=== PATIENT | female | born 1940 | race Caucasian/White ===

== ENCOUNTER 2020-01-26 12:27 | Emergency (ER) | payer MEDICARE, SELFPAY ==
[2020-01-26 12:31] VITALS: BP 180/84; PULSE 71; RESP 18; TEMP 37.2; O2SAT 96
[2020-01-26 12:41] LABS: Bilirubin Negative (Negative); Blood Negative (Negative); Clarity Clear (Clear); Glucose Negative (Negative); Ketones Negative (Negative); Leukocyte Esterase Negative (Negative); Nitrite Negative (Negative); Urobilinogen 0.2 EU/dL (Up TO 0.2)
[2020-01-26 12:46] VITALS: BP 175/82; PULSE 69
--- NOTE | 2020-01-26 12:48 | NUR.NOTE ---
Nursing Note: [facility] - PCP: Dr. De Paz. , . [facility] - Urologist: Dr. Jose Griffin. Lupe Delgado.
--- NOTE | 2020-01-26 12:50 | ED.GENADUL_ITS ---
Discharge Plan Disposition Patient Disposition: HOME Condition: Stable Discharge Details Chief Complaint: FlankPain Clinical Impression: Right flank pain, chronic Primary Care Provider: Oumar De Paz ED Provider: Amirah Blanco Home Meds and New Rx's Prescriptions: Continued allopurinol 100 mg Tablet 200 mg PO DAILY RF: 0 metoprolol tartrate 25 mg Tablet 25 mg PO BID RF: 0 amlodipine 5 mg Tablet 5 mg PO DAILY RF: 0 fluticasone propionate 50 mcg/actuation [place],Suspension 1 spray INTRANASAL BID RF: 0 furosemide 20 mg Tablet 20 mg PO DAILY RF: 0 latanoprost 0.005 % Drops 1 drp ophthalmic (eye) HS RF: 0 triamcinolone acetonide 0.1 % Cream 1 applic TOPICAL BID RF: 0 Lactobacillus acidophilus [Acidophilus] Capsule 1 cap PO DAILY RF: 0 loratadine 10 mg Tablet 10 mg PO BID RF: 0 multivitamin Tablet 1 tab PO DAILY RF: 0 docusate sodium 100 mg Tablet 100 mg PO BID PRNRF: 0 Aspercreme with Aloe 10 % Cream 1 applic TOPICAL PRN PRNRF: 0 hydrocortisone valerate 0.2 % Ointment 1 applic TOPICAL DAILY PRNRF: 0 Discharge Instructions Instructions: Flank Pain (ED) Additional Instructions: Follow up with primary care provider in 3-5 days. Return to ED sooner if any worsening or concerns. Increase oral fluids. Please return to the ED if any fever, nausea vomiting pain not relieved by medications or any concerns. Your labs today were largely within normal limits there is no evidence of urinary tract infection or blood in your urine. Referrals: Oumar De Paz [Primary Care Provider] - Discharge Data Discharge Date/Time-TO BE ENTERED AT DEPARTURE: 01/26/20 15:38 Medical Decision Making 79-year-old female presents with right flank pain which began last night. She describes this as intermittent colicky type pain. This is rated at a 2 out of 10 mild severity. This is associated with some mild right upper quadrant abdominal tenderness. She presents today after having a tele-visit with her PCP this a.m. Patient reports that for the last 25 years she is had a known right renal cyst. She denies any nausea vomiting diarrhea fever no chills or any other associated symptoms. She does have a history of atrial fibrillation congestive heart failure, glaucoma, gout, hypertension she did take 2 ibuprofen tablets this morning prior to arrival. At this time urinalysis ordered which is pending, renal ultrasound ordered to evaluate renal cyst. 1256: Medical records requested from [facility] PCP office Dr. De Paz to receive recent lab work drawn on Thursday, January 16 and recent ultrasounds and CT's. 1318: See below for medical record review. 1323: Upon patient reevaluation she appears very comfortable is resting quietly in bed reading a book has not requested any pain medication. 1336: Monitor to ensure correct comparison and continuity of care will draw CBC, CMP and lipase and ultrasound changed to CT abdomen pelvis with IV contrast to evaluate renal cyst and possible common bile duct cyst versus other intra- abdominal pathology. Differential diagnosis includes but not limited to exacerbation of chronic renal cyst, UTI, pyelonephritis,(which is unlikely due to negative leukocytes, negative nitrites in urine) common bile duct stone. This text was generated using [employer] dictation system, please disregard any oddities of phrase or misspellings. 1509: Spoke with Dr. Conway radiologist preliminary result CT nothing acute reports questionable very small less than a centimeter cysts of the upper pole of the right kidney. Patient has no evidence of UTI, labs are largely within normal limits plan is to discharge home with strict return instructions and follow-up with PCP. In this dictation patient was hemodynamically stable, this text was generated using [employer] system, please disregard any oddities of phrase or misspellings. Medical Records Medical records reviewed: Yes I reviewed the patient's medical records. Medical records narrative: 1318: Medical records obtained from [facility] which includes labs drawn on 01/17/2020 shows a BUN of 22 creatinine of 0.8 GFR greater than 60 sodium is 136 potassium is 4.4 chloride is 100 CO2 27 AST 28 ALT 29 CBC is largely within normal limits no leukocytosis hemoglobin 13.[address] thorax without IV contrast performed on February 03, 2019 shows a thyroid mass, exophytic mass 1.8 cm arising from the upper pole of the right kidney. This is slightly increased in size since May 13, 2013(1.5 cm)was previously b iopsied on 05/24/2013. HPI General Mode of arrival: ambulatory . Date/Time Provider Initiated Documentation: 01/26/20 12:30 . Limitations to Documentation: no limitations . Information obtained by: patient . HPI Narrative: 79-year-old female presents with right flank pain which began last night. She describes this as intermittent colicky type pain. This is rated at a 2 out of 10 mild severity. This is associated with some mild right upper quadrant abdominal tenderness. She presents today after having a tele-visit with her PCP this a.m. Patient reports that for the last 25 years she is had a known right renal cyst. She denies any nausea vomiting diarrhea fever no chills or any other associated symptoms. She does have a history of atrial fibrillation congestive heart failure, glaucoma, gout, hypertension, hyponatremia and thyroid mass which was ultrasound and being evaluated by her PCP. She did take 2 ibuprofen tablets this morning prior to arrival. Related Data Home Medications Medication Instructions Recorded Confirmed Aspercreme with Aloe 1 applic TOPICAL PRN PRN 01/26/20 01/26/20 Lactobacillus acidophilus 1 cap PO DAILY 01/26/20 01/26/20 [Acidophilus] allopurinol 200 mg PO DAILY 01/26/20 01/26/20 amlodipine 5 mg PO DAILY 01/26/20 01/26/20 docusate sodium 100 mg PO BID PRN 01/26/20 01/26/20 fluticasone propionate 1 spray INTRANASAL BID 01/26/20 01/26/20 furosemide 20 mg PO DAILY 01/26/20 01/26/20 hydrocortisone valerate 1 applic TOPICAL DAILY PRN 01/26/20 01/26/20 latanoprost 1 drp OPHTHALMIC (EYE) HS 01/26/20 01/26/20 loratadine 10 mg PO BID 01/26/20 01/26/20 metoprolol tartrate 25 mg PO BID 01/26/20 01/26/20 multivitamin 1 tab PO DAILY 01/26/20 01/26/20 triamcinolone acetonide 1 applic TOPICAL BID 01/26/20 01/26/20 Allergies Allergy/AdvReac Type Severity Reaction Status Date / Time adhesive tape Allergy Skin Rash Unverified 01/26/20 12:52 ciprofloxacin [From Cipro] Allergy Hives Unverified 01/26/20 12:52 levofloxacin [From Levaquin] Allergy Hives Unverified 01/26/20 12:52 moxifloxacin [From Vigamox] Allergy Hives Unverified 01/26/20 12:52 Penicillins Allergy large Unverified 01/26/20 12:52 bruise from injection as child Sulfa (Sulfonamide Allergy Hives Unverified 01/26/20 12:52 Antibiotics) General Stated Complaint: FlankPain CHRISSY: 3 Review of Systems Narrative: Constitutional: Negative for weight loss, alert and oriented, well groomed, normal body habitus, appears comfortable. HEENT: Denies trauma, headaches, blurry vision, nasal discharge, sore throat, trouble swallowing. Chest: Denies chest pain, palpitations, irregular rhythm, hypertension. Respiratory: Denies Shortness of breath, cough, hemoptysis. GI: Denies nausea, vomiting, diarrhea, constipation. Positive right upper quadrant abdominal pain : Denies dysuria, hematuria, positive right flank pain, history of right renal cyst, no rectal bleeding. Neuro: Denies dizziness, blurry vision, weakness, syncope, headache or facial numbness. Hematologic: Denies easy bruising, intolerance to heat or cold, hair loss. All systems reviewed & are unremarkable except as noted in HPI and below PFSH Medical History (Updated 01/26/20 @ 15:25 by Amirah Blanco) Alcohol abuse (Chronic) Allergic rhinitis (Acute) Atrial fibrillation (Chronic) Diastolic heart failure (Acute) Dizziness (Acute) Falls (Acute) Glaucoma (Chronic) Gout (Chronic) HTN (hypertension) (Chronic) Hyponatremia (Acute) Inguinal hernia (Acute) Low back pain (Acute) Osteoarthritis (Chronic) Osteoporosis (Chronic) Rosacea (Acute) Seborrheic keratosis (Acute) Sleep disturbance (Acute) Thyroid mass (Acute) Surgical History (Updated 01/26/20 @ 13:04 by Amirah Blanco) History of appendectomy (Chronic) History of colon surgery (Acute) Hx of cholecystectomy (Chronic) Social History Smoking/Tobacco Use Status: Former Tobacco Use Alcohol Intake: current Alcohol Intake frequency: 0-2 drinks per day Alcohol type: wine Drug use: Never Do you feel safe at home: Yes Do you feel safe in your relationship?: Yes Exam Narrative Exam Narrative: Constitutional: Alert and oriented x3. Appears stated age. Normal body habitus. Head: Normocephalic, no trauma. Eyes: Pupils PERRLA, Red reflex noted, EOM's intact. Eyelids symmetrical without lesions, discharge, or swelling. ENT: Bilateral TM's WNL, External ear normal to inspection, no mastoid TTP, swelling, or erythema, Nasal turbinates WNL, no nasal discharge. Normal dentition, Posterior pharynx WNL, no exudate. Chest: RRR, Normal S1, S2, distal pulses intact. Resp: Lungs clear to auscultation bilaterally, no wheezes, rales, or rhonchi. GI: Abdomen soft right upper quadrant tenderness to palpation, abdominal wall inspection normal nondistended. Genitourinary: No CVA tenderness to palpation. Musculoskeletal: Normal gait, 5/5 strength to all four extremities. Skin: No suspicious rashes or lesions. Capillary refill less than 2 sec. Neurologic: Cranial nerves II-XII intact. Alert and oriented x 3. DTR's intact. Hematologic/Lymphatic: No ecchymosis, no lymphadenopathy. Course Vital Signs Vital signs: Vital Signs Temperature 37.2 C 01/26/20 12:31 Pulse 71 01/26/20 12:31 Respiratory Rate 18 01/26/20 12:31 Blood Pressure 180/84 H 01/26/20 12:31 Pulse Oximetry 96 01/26/20 12:31 Temperature 37.2 C 01/26/20 12:31 Temperature Source Skin 01/26/20 12:31 Pulse 71 01/26/20 12:31 Respiratory Rate 18 01/26/20 12:31 Respiratory Effort Non-Labored 01/26/20 12:45 Blood Pressure 180/84 H 01/26/20 12:31 Pulse Oximetry 96 01/26/20 12:31 Oxygen Delivery Method Room Air 01/26/20 12:31 Oxygen Flow Rate 0 01/26/20 12:31 Pain Level 4 01/26/20 12:31 Comment 2 ibuprofen this morning 01/26/20 12:31 Lab/Test Results Lab/Test Results: Laboratory Tests Range/Units 01/26/20 12:30 Urine Color (Yellow) Yellow Urine Clarity (Clear) Clear Urine pH (5-8) 7.0 Ur Specific [place] (1.005-1.025) 1.020 Urine Protein (Negative) mg/dL Negative Urine Ketones (Negative) mg/dL Negative Urine Blood (Negative) Negative Urine Nitrite (Negative) Negative Urine Bilirubin (Negative) Negative Urine Urobilinogen (Up TO 0.2) EU/dL 0.2 Ur Leukocyte Esterase (Negative) Negative Urine Glucose (Negative) mg/dL Negative
[2020-01-26 13:49] LABS: Abs Immature Grans 0.02 k/cumm (0.0-0.09); Absolute Basophil Count 0.03 k/cumm (0.0-0.2); Absolute Eosinophil Count 0.27 k/cumm (0.0-0.7); Absolute Lymphocyte Count 1.34 k/cumm (1.2-3.4); Absolute Monocyte Count 0.59 k/cumm (0.11-0.7); Absolute Neutrophil Count 5.67 k/cumm (1.2-6.7); Basophils % 0.4; Eosinophils % 3.4; HCT 40.9 % (36.0-46.0); HGB 14.2 g/dL (12.0-15.5); Immature Grans % 0.3 %; Lymphocytes % 16.9; Mean Corp. HGB Concentration 34.7 g/dL (32.0-36.0); Mean Corpuscular Hemoglobin 33.6 pg (27.0-33.0); Mean Corpuscular Volume 96.7 fL (80-95); Mean Platelet Volume 9.4 fL (8.0-11.0); Monocytes % 7.4; Neutrophils % 71.6; Platelet Count 247 x1000/uL (130-400); RBC 4.23 m/cumm (4.00-5.20); White Blood Cell Count 7.92 k/cumm (4.4-10.8)
[2020-01-26 14:05] LABS: ALT 28 U/L (14-59); AST 24 U/L (15-37); Albumin 4.1 g/dL (3.4-5.0); Alkaline Phosphatase 104 U/L (46-116); Anion Gap 4.3 mmol/L (3-11); BUN 14 mg/dL (7-18); Bilirubin, Total 0.7 mg/dL (0.2-1.0); CO2 30.7 mmol/L (21.0-32.0); CREATININE 0.84 mg/dL (0.55-1.02); Calcium 9.7 mg/dL (8.5-10.1); Chloride 96 mmol/L (98-107); Glucose 104 mg/dL (74-106); Lipase 226 U/L (73-393); Potassium 3.5 mmol/L (3.5-5.1); Sodium 131 mmol/L (136-145); Total Protein 7.5 g/dL (6.4-8.2)
[2020-01-26] MEDS: Omnipaque 350 MG/ML 100 ML BTL IJ (14:30)
[2020-01-26] MEDS: Normal Saline - Diluent 50 ML VIAL IV (14:31)
--- NOTE | 2020-01-26 14:43 | DI.CT_ITS ---
EXAM: CT ABDOMEN PELVIS W CLINICAL HISTORY: RUQ ABD PAIN, HX OF BERTHA, HX OF RENAL CYST TECHNIQUE: CT examination of the abdomen and pelvis was performed with a bolus infusion of 100 cc of Omnipaque 350. COMPARISON: No exams were available for comparison FINDINGS: Images obtained through the lung bases are unremarkable. Note is made of a vertebral fusion and vert ebroplasty at L4-5 with [place] rods in place. There is a prior cholecystectomy. No biliary dilatation seen. Pancreas is unremarkable in appearanc e. No focal hepatic lesion seen. Spleen is unremarkable. There is a small hiatal hernia. Adrenals are unremarkable in appearance bilaterally. There are a couple of small low-attenuation cor tical renal lesions bilaterally consistent with cysts. A 90 Hounsfield unit mean attenuation 9 millim eter nodule also seen upper right, is likely to represent a hemorrhagic cyst. There is no evidence of nephrolithiasis or hydronephrosis. No evidence of ureterolithiasis. Urinary bladder grossly unrema rkable. Abdominal aorta is of normal diameter. There is aortic wall calcification, calcification of renal ar mohan origins noted bilaterally and significant renal artery stenosis may be present. Renal cortex gr ossly intact bilaterally. No abdominal or pelvic adenopathy seen. No evidence of bowel obstruction. Appendix appears to have been surgically removed with vascular clips at the expected location of the appendix. No evidence of diverticulitis. Uterus is enlarged and contains calcified mass consistent with degenerating fibroid. Additional nonc alcified uterine masses are also noted consistent with fibroid. Left ovarian calcification also appe ars to be present. No gross adnexal mass by CT criteria. Question prior ventral hernia surgery, thickening of anterior abdominal wall noted in the periumbilic al region. No bowel involvement, no gross hernia. Please correlate with clinical history. IMPRESSION: No evidence of acute intraabdominal process. Heavily calcified renal artery origins, renal artery stenosis not excluded. Probable prior abdominal wall ventral herniorrhaphy, please correlate clinically. No associated juliana l pathology. No gross hernia.
[2020-01-26 15:07] VITALS: BP 153/71; PULSE 81; RESP 16; TEMP 36.6; O2SAT 96
--- NOTE | 2020-01-26 15:39 | PDOC.ERCMPRO ---
- If Service Date Differs Date of service: 01/26/20 Time of Service: 15:39 Care Management Progress Note ARMANDO meets with Bertha to offer assistance in establishing care with the [facility]. She reports she lives in [place], [place], but spends [place] at a camp in the [facility] every year. She is seen in the ED today for right flank pain and needs a follow-up appointment in 3 to 5 days. Bertha states she started the process of establishing care with the [facility] last summer and she believes she will be able to schedule a follow-up appointment on her own. Bertha declines 's offer of assistance, but accepts contact information and agrees to call if needed.
== END 2020-01-26 15:38 | disposition home or self-care (01) ==
PROVIDERS: Emergency Provider Registered Nurse Emergency; PCP Family Medicine
DX: M54.5 Low back pain (principal); G89.29 Other chronic pain; R10.11 Right upper quadrant pain; I10 Essential (primary) hypertension
CPT/HCPCS: 36415; 80053; 83690; 99285; 74177; 81003; 85025; 99284; J3490

== ENCOUNTER 2021-04-22 10:23 | Emergency (ER) | payer MEDICARE, SELFPAY ==
[2021-04-22] VITALS (25 sets, daily range): BP systolic 127–173; BP diastolic 53–124; PULSE 60–79; RESP 14–24; TEMP 36.3–36.8; O2SAT 95–100
[2021-04-22 11:16] LABS: Bilirubin Negative (Negative); Blood Trace-intact (Negative); Clarity Clear (Clear); Glucose Negative (Negative); Ketones Negative (Negative); Leukocyte Esterase Trace (Negative); Nitrite Negative (Negative)
[2021-04-22 11:27] LABS: Bacteria Negative HPF (Negative); Casts 3-5 Hyaline LPF (Negative); Crystals Negative HPF (Negative); Epithelial Cells Few HPF (Negative); Mucus Negative (Negative); Other Cells Few Transitional (Negative)
[2021-04-22 11:28] LABS: C & S Indicated? Yes
--- NOTE | 2021-04-22 12:15 | RT.EKG_ITS ---
APPROVED REPORT Exam: Resting ECG Reason for Exam: abd pain Patient Location: E HR:71 bpm ECG Measurements Heart Rate 71 AXIS WY [id number] P [id number] QRSd 88 QRS 2 QT 395 T 31 QTc 431 Conclusion Atrial fibrillation...V-rate 66- 82, irreg A-activity Borderline ST depression, anterolateral leads...ST <-0.07mV, I aVL V2-V6 no STEMI, non-diagnostic EKG I have reviewed and interpreted ECG and agree with software generated interpretation.
--- NOTE | 2021-04-22 12:15 | DI.CT_ITS ---
Exam(s) CT ABDOMEN PELVIS W EXAM: CT ABDOMEN PELVIS W CLINICAL HISTORY: luq pain and flank pain TECHNIQUE: Imaging Protocol: Axial computed tomography images with coronal and sagittal reformatted images were created and reviewed CONTRAST MATERIAL: Intravenous: Omnipaque 350 Contrast volume:100 mL Oral: No COMPARISON: CT CT ABDOMEN PELVIS W from 01/26/2020 FINDINGS: ABDOMEN: Lung Bases: Mild centrilobular pulmonary emphysema. Cardiomegaly. Liver: Normal density. No measurable mass. Portal, Superior Mesenteric, and Splenic Veins: Unremarkable. Gallbladder and Biliary Tract: Status post cholecystectomy. No biliary ductal dilatation. Pancreas: Normal density, no abnormal calcifications or inflammatory process. Spleen: Normal. Adrenals: No masses seen. Kidneys: Normal size, contour and axis. No radiodense stones or obstructive uropathy. Stable bilatera l renal cysts. Abdominal Aorta: Abdominal portion non-dilated. Marked atherosclerosis. Bowel: No obstruction or bowel wall thickening. No evidence of appendicitis. Peritoneal Cavity: No ascites, collection or mesenteric inflammatory response. No free air. Lymph Nodes: Within normal limits. Bones: Status post lumbar spine surgery. No acute abnormality. Soft Tissues: Unremarkable. PELVIS: Bladder: Symmetric distention, no gross wall thickening. Reproductive Organs: Calcified uterine masses most consistent with uterine fibroids. Lymph Nodes: Within normal limits. Bones: Within normal limits for the patient's age. IMPRESSION: 1. No acute abdominal pelvic process. 2. Results of this exam have been verbally communicated with provider. RADIATION DOSE DELIVERED: 846.39mGy.cm Total DLP DATA REPOSITORY: All CT scans at this facility are submitted to the National Radiology Data Registry (NRDR) Dose Index Registry (DIR) with the [employer] (ACR). RADIATION OPTIMIZATION: All CT scans at this facility use at least one of these dose optimization te chniques: automated exposure control; mA and/or kV adjustment per patient size (includes targeted exa ms where dose is matched to clinical indication); or iterative reconstruction.
--- NOTE | 2021-04-22 12:18 | W.ED.GENAD ---
Discharge Plan Disposition Patient Disposition: HOME Condition: Stable Discharge Details Clinical Impression: Abdominal pain Primary Care Provider: Oumar De Paz ED Provider: Yohana Tran Home Meds and New Rx's Prescriptions: Continued allopurinol 100 mg Tablet 200 mg PO DAILY RF: 0 metoprolol tartrate 25 mg Tablet 75 mg PO BID RF: 0 amlodipine 5 mg Tablet 5 mg PO DAILY RF: 0 fluticasone propionate 50 mcg/actuation [place],Suspension 1 spray INTRANASAL BID RF: 0 furosemide 20 mg Tablet 20 mg PO DAILY RF: 0 latanoprost 0.005 % Drops 1 drp ophthalmic (eye) HS RF: 0 triamcinolone acetonide 0.1 % Cream 1 applic TOPICAL BID RF: 0 Lactobacillus acidophilus [Acidophilus] Capsule 1 cap PO DAILY RF: 0 multivitamin Tablet 1 tab PO DAILY RF: 0 docusate sodium 100 mg Tablet 100 mg PO BID PRNRF: 0 Aspercreme with Aloe 10 % Cream 1 applic TOPICAL PRN PRNRF: 0 hydrocortisone valerate 0.2 % Ointment 1 applic TOPICAL DAILY PRNRF: 0 Discharge Instructions Instructions: Abdominal Pain (ED) Additional Instructions: Does not show abnormality at this time Take Tylenol 650 every 4-6 hours as needed for pain Follow-up with your doctor in 24 to 48 hours for reevaluation Return earlier should you have persistent or worsening pain, fever, chills, nausea, vomiting, or with any new or worsening complaints Discharge Data Discharge Date/Time-TO BE ENTERED AT DEPARTURE: 04/22/21 16:[address] radiology interpretation shows atherosclerosis but no other acute abnormality Afebrile and nontoxic, potassium 3.4, will supplement at home No evidence of additional abnormality Pain-free throughout encounter Recheck in 24 to 48 hours recommended Early return precautions discussed patient expressed understanding She is aware she will need to have her urine rechecked by her primary care physician she does have a red blood cell mediated No evidence of diverticulitis or any intrarenal abnormality Ambulatory steady gait, alert, oriented, up to capacity Medical Records Medical records reviewed: Yes I reviewed the patient's medical records. Lab Data Lab results reviewed: Yes I reviewed the patient's lab results. HPI General Mode of arrival: ambulatory. Date/Time Provider Initiated Documentation: 04/22/21 12:11. Limitations to Documentation: no limitations. Information obtained by: patient. HPI Narrative: This 80-year-old female presents with past medical history of alcohol abuse, atrial fibrillation, diastolic heart failure, diabetes, hypertension, hyponatremia thyroid mass, presents with report of left upper quadrant and flank pain. Denies any chest pain or shortness of breath. Denies dizziness or weakness. States she has a history of similar pain on the right side. She states she has a history of renal mass which was later told that and had rupture last year. She denies any known history of cancer. She denies any falls or injuries. She denies known exacerbating or alleviating factors. Pain has been intermittent since Thursday. States the pain is tolerable at this time. Denies any calf pain or swelling. Denies prior history of coagulopathy, denies any nausea or vomiting or hematuria. Denies any urinary complaints Related Data Home Medications Medication Instructions Recorded Confirmed Aspercreme with Aloe 1 applic TOPICAL PRN PRN 01/26/20 04/22/21 Lactobacillus acidophilus 1 cap PO DAILY 01/26/20 04/22/21 [Acidophilus] allopurinol 200 mg PO DAILY 01/26/20 04/22/21 amlodipine 5 mg PO DAILY 01/26/20 04/22/21 docusate sodium 100 mg PO BID PRN 01/26/20 04/22/21 fluticasone propionate 1 spray INTRANASAL BID 01/26/20 04/22/21 furosemide 20 mg PO DAILY 01/26/20 04/22/21 hydrocortisone valerate 1 applic TOPICAL DAILY PRN 01/26/20 04/22/21 latanoprost 1 drp OPHTHALMIC (EYE) HS 01/26/20 04/22/21 metoprolol tartrate 75 mg PO BID 01/26/20 04/22/21 multivitamin 1 tab PO DAILY 01/26/20 04/22/21 triamcinolone acetonide 1 applic TOPICAL BID 01/26/20 04/22/21 Allergies Allergy/AdvReac Type Severity Reaction Status Date / Time adhesive tape Allergy Skin Rash Unverified 04/22/21 10:52 ciprofloxacin [From Cipro] Allergy Hives Unverified 04/22/21 10:52 levofloxacin [From Levaquin] Allergy Hives Unverified 04/22/21 10:52 moxifloxacin [From Vigamox] Allergy Hives Unverified 04/22/21 10:52 Penicillins Allergy large Unverified 04/22/21 10:52 bruise from injection as child Sulfa (Sulfonamide Allergy Hives Unverified 04/22/21 10:52 Antibiotics) General Stated Complaint: Abd Prob CHRISSY: 3 Review of Systems All systems reviewed & are unremarkable except as noted in HPI and below PFSH Medical History (Updated 04/22/21 @ 15:27 by ARIANA Jean) Alcohol abuse Allergic rhinitis Atrial fibrillation Diastolic heart failure Dizziness Falls Glaucoma Gout HTN (hypertension) Hyponatremia Inguinal hernia Low back pain Osteoarthritis Osteoporosis Rosacea Seborrheic keratosis Sleep disturbance Thyroid mass Surgical History (Updated 01/26/20 @ 13:04 by Amirah Blanco) History of appendectomy History of colon surgery Hx of cholecystectomy Social History Smoking/Tobacco Use Status: Former Tobacco Use Smoking risk assessment performed?: Yes Alcohol Intake: current Alcohol Intake frequency: 0-2 drinks per day Alcohol type: wine Drug use: Never Do you feel safe at home: Yes Do you feel safe in your relationship?: Yes Exam Const General: cooperative and comfortable Eyes Sclera: sclerae normal Resp Effort & Inspection: normal respiratory effort Cardio Rate: regular rate GI Other: Mild left upper quadrant tenderness, no CVA tenderness, no abdominal bruit Skin General skin exam: no rashes or lesions noted Neuro General: patient alert and patient oriented x3 Extrem Other: No peripheral edema Psych Appearance: grossly normal and well kempt Course Vital Signs Vital signs: Vital Signs Temperature 36.8 C 04/22/21 10:46 Pulse 61 04/22/21 10:46 Respiratory Rate 18 04/22/21 10:46 Blood Pressure 141/63 H 04/22/21 10:46 Pulse Oximetry 97 04/22/21 10:46 Temperature 36.8 C 04/22/21 10:46 Temperature Source Temporal Artery Scan 04/22/21 10:46 Pulse 61 04/22/21 10:46 Respiratory Rate 18 04/22/21 10:46 Respiratory Effort Non-Labored 04/22/21 10:51 Blood Pressure 141/63 H 04/22/21 10:46 Blood Pressure Position Sitting 04/22/21 10:46 Pulse Oximetry 97 04/22/21 10:46 Oxygen Delivery Method Room Air 04/22/21 10:46 Oxygen Flow Rate 0 04/22/21 10:46 Pain Level 2 04/22/21 10:46 Lab/Test Results Lab/Test Results: 04/22/21 11:00 Urine - Reflex from Ua Urine Culture - Pending Laboratory Tests Range/Units 04/22/21 11:00 Urine Color (Yellow) Yellow Urine Clarity (Clear) Clear Urine pH (5-8) 6.0 Ur Specific [place] (1.005-1.025) 1.020 Urine Protein (Negative) mg/dL 100 H Urine Ketones (Negative) mg/dL Negative Urine Blood (Negative) Trace-intact H Urine Nitrite (Negative) Negative Urine Bilirubin (Negative) Negative Urine Urobilinogen (Up TO 0.2) EU/dL 1.0 H Ur Leukocyte Esterase (Negative) Trace H Urine RBC (0-2) HPF 3-5 H Urine WBC (0-5) HPF 5-10 Ur Epithelial Cells (Negative) HPF Few Urine Crystals (Negative) HPF Negative Urine Bacteria (Negative) HPF Negative Urine Casts (Negative) LPF 3-5 Hyaline Urine Mucus (Negative) Negative Urine Other (Negative) Few Transitional Ur Culture Indicated? Yes Urine Glucose (Negative) mg/dL Negative
[2021-04-22 12:57] LABS: Abs Immature Grans 0.03 10^3/uL (0.0-0.06); Absolute Basophil Count 0.05 10^3/uL (0.0-0.2); Absolute Eosinophil Count 0.11 10^3/uL (0.0-0.7); Absolute Lymphocyte Count 1.15 10^3/uL (1.2-3.4); Absolute Neutrophil Count 5.33 10^3/uL (1.2-6.7); Basophils % 0.7; Eosinophils % 1.5; HCT 40.1 % (36.0-46.0); HGB 13.7 g/dL (11.2-15.7); Immature Grans % 0.4; Lymphocytes % 15.8; MCH 33.3 pg (27.0-33.0); MCHC 34.2 % (32.0-36.0); MCV 97.3 fL (80-95); MPV 9.4 fL (8.0-11.0); Monocytes % 8.3; Neutrophils % 73.3; Nucleated RBC 0 %; Platelet Count 185 10^3/uL (130-400); RBC 4.12 10^6/uL (3.93-5.22); RDW 12.4 % (11.7-14.6); RDW-SD 44.3 fL; WBC 7.27 10^3/uL (4.4-10.8)
[2021-04-22 13:12] LABS: ALT 46 U/L (14-59); AST 17 U/L (15-37); Albumin 3.5 g/dL (3.4-5.0); Alkaline Phosphatase 112 U/L (46-116); BUN 16 mg/dL (7-18); Bilirubin, Total 1.2 mg/dL (0.2-1.0); Calcium 9.6 mg/dL (8.5-10.1); Chloride 97 mmol/L (98-107); Estimated GFR 53.48 (mL/min/1.73m2); Glucose 104 mg/dL (74-106); Lipase 203 U/L (73-393); Potassium 3.4 mmol/L (3.5-5.1); Sodium 137 mmol/L (136-145); Total Protein 6.8 g/dL (6.4-8.2)
[2021-04-22 13:29] LABS: Troponin I < 0.05 ng/mL (<0.06)
[2021-04-22] MEDS: Omnipaque 350 MG/ML 100 ML BTL IV (14:06)
== END 2021-04-22 16:02 | disposition home or self-care (01) ==
PROVIDERS: Student in an Organized Health Care Education/Training Program; Emergency Provider Physician Assistant; PCP Family Medicine
DX: R10.12 Left upper quadrant pain (principal); R10.9 Unspecified abdominal pain
CPT/HCPCS: 36415; 80053; 83690; 93005; 99285; 74177; 81003; 81015; 84484; 85025; 87086; 93010; 99283; J3490

== ENCOUNTER 2021-06-07 07:50 | Emergency (ER) | payer MEDICARE, SELFPAY ==
[2021-06-07] VITALS (41 sets, daily range): BP systolic 96–135; BP diastolic 46–95; PULSE 73–119; RESP 14–31; TEMP 36.8; O2SAT 91–98
--- NOTE | 2021-06-07 07:45 | RT.EKG_ITS ---
APPROVED REPORT Exam: Resting ECG Reason for Exam: sob Patient Location: E HR:97 bpm ECG Measurements Heart Rate 97 AXIS WA [id number] P [id number] QRSd 86 QRS 28 QT 360 T [id number] QTc 458 Conclusion Atrial fibrillation...V-rate 71-146, irreg A-activity Low voltage, extremity leads...all extremity leads <0.5mV Nonspecific repol abnormality, diffuse leads...ST dep, T flat/neg, ant/lat/inf no stemi
[2021-06-07 08:23] LABS: Abs Immature Grans 0.03 10^3/uL (0.0-0.06); Absolute Basophil Count 0.04 10^3/uL (0.0-0.2); Absolute Eosinophil Count 0.03 10^3/uL (0.0-0.7); Absolute Lymphocyte Count 0.48 10^3/uL (1.2-3.4); Absolute Monocyte Count 0.45 10^3/uL (0.1-0.8); Absolute Neutrophil Count 6.37 10^3/uL (1.2-6.7); Basophils % 0.5; Eosinophils % 0.4; HCT 31.1 % (36.0-46.0); HGB 10.3 g/dL (11.2-15.7); Immature Grans % 0.4; Lactate 1.1 mmol/L (0.6-1.4); Lymphocytes % 6.5; MCH 31.7 pg (27.0-33.0); MCHC 33.1 % (32.0-36.0); MCV 95.7 fL (80-95); MPV 9.3 fL (8.0-11.0); Monocytes % 6.1; Neutrophils % 86.1; Nucleated RBC 0 %; Platelet Count 286 10^3/uL (130-400); RBC 3.25 10^6/uL (3.93-5.22); RDW-SD 45.3 fL
--- NOTE | 2021-06-07 08:30 | DI.CT_ITS ---
Exam(s) CT CHEST PE ABD PELVIS W EXAM: CT CHEST PE ABD PELVIS W CLINICAL HISTORY: lower chest pain left, tachycardic. TECHNIQUE: Imaging Protocol: Axial computed tomography images with coronal and sagittal reformatted images were created and reviewed CONTRAST MATERIAL: Intravenous: Omnipaque 350 Contrast volume:110 ml Oral: / no COMPARISON: CT CT ABDOMEN PELVIS W from 04/22/2021 FINDINGS: CHEST: Pulmonary arteries: No evidence of emboli. Tracheobronchial tree: Patent where visualized. Mediastinum and Anne: No dominant adenopathy or fluid collection. Pulmonary parenchyma: Underlying emphysematous changes. Bilateral upper and lower lobe ground-glass opacities. Atelectasis left lower lobe. Pleura: Small left pleural effusion. No or pneumothorax. Lymph nodes: Within normal limits. Aorta: Thoracic portion non-dilated. Atherosclerotic changes. No evidence of dissection. Heart: Dilated left ventricle, left and right atria. No pericardial effusion. Mild coronary artery calcifications. Bones: Unremarkable for age. No lytic or blastic lesions. ABDOMEN: Liver: Normal density. No measurable mass. Gallbladder and biliary tract: Status post cholecystectomy. Pancreas: Normal density, no abnormal calcifications or inflammatory process. Spleen: Normal. Kidneys: Normal size, contour and axis. No radiodense stones or obstructive uropathy. No masses seen. Adrenal glands: No masses seen. Aorta: Abdominal portion non-dilated. Atherosclerotic changes. Lymph nodes: Within normal limits. Soft tissues: Lower anterior abdominal wall scarring. PELVIS: Bladder: Symmetric distention, no gross wall thickening. Bowel: Surgical clips near the cecum. Diverticulosis descending and sigmoid colon. No evidence of div erticulitis. No obstruction or bowel wall thickening. Peritoneal cavity: No ascites, collection or mesenteric inflammatory response. Bones: There is hardware at L4-5. Scoliosis and degenerative changes. No fractures. Reproductive organs: Calcified uterine fibroids IMPRESSION: 1. No evidence of pulmonary emboli or aortic dissection. 2. Bilateral pneumonia. Small left pleural effusion. 3. No acute abnormality in the abdomen or pelvis. RADIATION DOSE DELIVERED: 1,315.59mGy.cm Total DLP DATA REPOSITORY: All CT scans at this facility are submitted to the National Radiology Data Registry (NRDR) Dose Index Registry (DIR) with the [employer] (A[employer]). RADIATION OPTIMIZATION: All CT scans at this facility use at least one of these dose optimization te chniques: automated exposure control; mA and/or kV adjustment per patient size (includes targeted exa ms where dose is matched to clinical indication); or iterative reconstruction.
[2021-06-07 08:31] LABS: Source Nasal/Nares
[2021-06-07 08:38] LABS: ALT 127 U/L (14-59); AST 116 U/L (15-37); Albumin 2.4 g/dL (3.4-5.0); Alkaline Phosphatase 330 U/L (46-116); Anion Gap 11.7 mmol/L (3-11); BUN 23 mg/dL (7-18); Bilirubin, Total 1.8 mg/dL (0.2-1.0); CO2 25.3 mmol/L (21.0-32.0); CREATININE 1.2 mg/dL (0.55-1.02); Calcium 8.8 mg/dL (8.5-10.1); Chloride 100 mmol/L (98-107); Estimated GFR 43.23 (mL/min/1.73m2); Glucose 100 mg/dL (74-106); Potassium 3.4 mmol/L (3.5-5.1); Sodium 137 mmol/L (136-145); Total Protein 6.3 g/dL (6.4-8.2)
--- NOTE | 2021-06-07 08:40 | ED.GENADUL_ITS ---
Discharge Plan Disposition Patient Disposition: HOME Condition: Stable Discharge Details Clinical Impression: Anemia, Epigastric abdominal pain, Pneumonia of both lower lobes Primary Care Provider: Oumar De Paz ED Provider: Roly Cook Home Meds and New Rx's Prescriptions: New nitrofurantoin monohyd/m-cryst [Macrobid] 100 mg capsule 100 mg PO BID Qty: 9 RF: 0 doxycycline hyclate 100 mg tablet 100 mg PO BID Qty: 9 RF: 0 pantoprazole [Protonix] 40 mg tablet,delayed release (DR/EC) 40 mg PO DAILY Qty: 30 RF: 0 Continued vitamin A-vitamin E 25,000-30 unit Capsule 1 cap PO DAILY RF: 0 allopurinol 100 mg Tablet 200 mg PO DAILY RF: 0 metoprolol tartrate 25 mg Tablet 75 mg PO BID RF: 0 amlodipine 5 mg Tablet 5 mg PO DAILY RF: 0 fluticasone propionate 50 mcg/actuation [place],Suspension 1 spray INTRANASAL BID RF: 0 furosemide 20 mg Tablet 20 mg PO DAILY RF: 0 latanoprost 0.005 % Drops 1 drp ophthalmic (eye) HS RF: 0 triamcinolone acetonide 0.1 % Cream 1 applic TOPICAL BID RF: 0 Lactobacillus acidophilus [Acidophilus] Capsule 1 cap PO DAILY RF: 0 multivitamin Tablet 1 tab PO DAILY RF: 0 docusate sodium 100 mg Tablet 100 mg PO BID PRNRF: 0 Aspercreme with Aloe 10 % Cream 1 applic TOPICAL PRN PRNRF: 0 hydrocortisone valerate 0.2 % Ointment 1 applic TOPICAL DAILY PRNRF: 0 Discharge Instructions Instructions: Anemia (ED), Pneumonia (ED), Epigastric Pain (ED) Additional Instructions: CT imaging of your lungs revealed pneumonia. Please take antibiotic as prescribed. Urinalysis was concerning for potential urinary tract infection. Again please take antibiotic as prescribed. You were found to be anemic today with a drop in hemoglobin from recent prior. The cause of this was not determined today. Please follow-up with your primary care physician and review all results. Please contact your primary care physician to arrange follow-up. Please call today to arrange timely follow-up for early next week. Return to the ER for any worsening or new concerning symptoms. Referrals: Oumar De Paz [Primary Care Provider] - Discharge Data Discharge Date/Time-TO BE ENTERED AT DEPARTURE: 06/07/21 12:25 Medical Decision Making 81-year-old female with multiple medical problems here with abdominal pain for the past 2 months, worse over the past couple days, associated chills of the past 2 nights, also with some left upper chest pain. Patient is quite tender in her upper abdomen. Initial labs have resulted and mild anemia noted. This is a significant decrease from recent prior. Consider ulcer and GI bleed. She has no melena or bright red blood per rectum. I reviewed past medical record including CT the abdomen pelvis performed on 04/22/2021 that was negative. Given persistent and worsening abdominal pain and now associated chills, consider acute intra-abdominal surgical pathology including perforated ulcer. Plan to obtain CT of the abdomen pelvis. Consider acute pulmonary embolism. Plan to obtain CT of the chest. --CT chest interpreted by radiology: Bilateral pneumonia. Covid test negative CT of the abdomen pelvis interpreted by radiology: negative Labs reviewed and urinalysis concerning for potential urinary tract infection. Hemoglobin noted to be 10.3 which is a significant decrease from 13.7 a couple months ago. Unclear etiology for anemia. I did perform a rectal exam and Hemoccult was negative, patient has had no bright red blood per rectum or melena. Plan will be to initiate treatment with Macrobid to cover potential urinary infection and doxycycline for community-acquired pneumonia. I will have her follow-up with PCP. On reassessment patient noted to be hemodynamically stable and saturating well in no respiratory distress. All results were reviewed with the patient. Usual and customary discharge instructions were reviewed with the patient. She verbalized understanding of importnace of timely followup. Lab Data Lab results reviewed: Yes I reviewed the patient's lab results. Labs: 06/07/21 08:35 Urine - Reflex from Ua Urine Culture - Pending Laboratory Tests Range/Units 06/07/21 06/07/21 06/07/21 08:10 08:10 08:10 WBC (4.4-10.8) 10^3/uL RBC (3.93-5.22) 10^6/uL Hgb (11.2-15.7) g/dL Hct (36.0-46.0) % MCV (80-95) fL MCH (27.0-33.0) pg MCHC (32.0-36.0) % RDW (11.7-14.6) % Plt Count (130-400) 10^3/uL MPV (8.0-11.0) fL Immature Gran % Neutrophils % Lymphocytes % Monocytes % Eosinophils % Basophils % Nucleated RBC % % Absolute Neutrophils (1.2-6.7) 10^3/uL Absolute Lymphocytes (1.2-3.4) 10^3/uL Absolute Monocytes (0.1-0.8) 10^3/uL Absolute Eosinophils (0.0-0.7) 10^3/uL Absolute Basophils (0.0-0.2) 10^3/uL APTT (21.0-27.5) sec VBG Lactate (0.6-1.4) mmol/L 1.1 Sodium (136-145) mmol/L 137 Potassium (3.5-5.1) mmol/L 3.4 L Chloride (98-107) mmol/L 100 Carbon Dioxide (21.0-32.0) mmol/L 25.3 Anion Gap (3-11) mmol/L 11.7 H BUN (7-18) mg/dL 23 H Creatinine (0.55-1.02) mg/dL 1.2 H Estimated GFR/1.73 m2 (mL/min/1.73m2) 43.23 Glucose (74-106) mg/dL 100 Calcium (8.5-10.1) mg/dL 8.8 Total Bilirubin (0.2-1.0) mg/dL 1.8 H AST (15-37) U/L 116 H ALT (14-59) U/L 127 H Alkaline Phosphatase (46-116) U/L 330 H Total Protein (6.4-8.2) g/dL 6.3 L Albumin (3.4-5.0) g/dL 2.4 L TSH (0.36-3.74) uIU/mL Urine Color (Yellow) Urine Clarity (Clear) Urine pH (5-8) Ur Specific [place] (1.005-1.025) Urine Protein (Negative) mg/dL Urine Ketones (Negative) mg/dL Urine Blood (Negative) Urine Nitrite (Negative) Urine Bilirubin (Negative) Urine Urobilinogen (Up TO 0.2) EU/dL Ur Leukocyte Esterase (Negative) Urine RBC (0-2) HPF Urine WBC (0-5) HPF Ur Epithelial Cells (Negative) HPF Urine Crystals (Negative) HPF Urine Bacteria (Negative) HPF Urine Casts (Negative) LPF Urine Mucus (Negative) Urine Other (Negative) Ur Culture Indicated? Urine Glucose (Negative) mg/dL COVID-19 Source Nasal/Nares SARS-CoV-2 (PCR) (Negative) Negative Range/Units 06/07/21 06/07/21 06/07/21 08:10 08:10 08:10 WBC (4.4-10.8) 10^3/uL 7.40 RBC (3.93-5.22) 10^6/uL 3.25 L Hgb (11.2-15.7) g/dL 10.3 L Hct (36.0-46.0) % 31.1 L MCV (80-95) fL 95.7 H MCH (27.0-33.0) pg 31.7 MCHC (32.0-36.0) % 33.1 RDW (11.7-14.6) % 13.0 Plt Count (130-400) 10^3/uL 286 MPV (8.0-11.0) fL 9.3 Immature Gran % 0.4 Neutrophils % 86.1 Lymphocytes % 6.5 Monocytes % 6.1 Eosinophils % 0.4 Basophils % 0.5 Nucleated RBC % % 0 Absolute Neutrophils (1.2-6.7) 10^3/uL 6.37 Absolute Lymphocytes (1.2-3.4) 10^3/uL 0.48 L Absolute Monocytes (0.1-0.8) 10^3/uL 0.45 Absolute Eosinophils (0.0-0.7) 10^3/uL 0.03 Absolute Basophils (0.0-0.2) 10^3/uL 0.04 APTT (21.0-27.5) sec 24.7 VBG Lactate (0.6-1.4) mmol/L Sodium (136-145) mmol/L Potassium (3.5-5.1) mmol/L Chloride (98-107) mmol/L Carbon Dioxide (21.0-32.0) mmol/L Anion Gap (3-11) mmol/L BUN (7-18) mg/dL Creatinine (0.55-1.02) mg/dL Estimated GFR/1.73 m2 (mL/min/1.73m2) Glucose (74-106) mg/dL Calcium (8.5-10.1) mg/dL Total Bilirubin (0.2-1.0) mg/dL AST (15-37) U/L ALT (14-59) U/L Alkaline Phosphatase (46-116) U/L Total Protein (6.4-8.2) g/dL Albumin (3.4-5.0) g/dL TSH (0.36-3.74) uIU/mL 3.28 Urine Color (Yellow) Urine Clarity (Clear) Urine pH (5-8) Ur Specific [place] (1.005-1.025) Urine Protein (Negative) mg/dL Urine Ketones (Negative) mg/dL Urine Blood (Negative) Urine Nitrite (Negative) Urine Bilirubin (Negative) Urine Urobilinogen (Up TO 0.2) EU/dL Ur Leukocyte Esterase (Negative) Urine RBC (0-2) HPF Urine WBC (0-5) HPF Ur Epithelial Cells (Negative) HPF Urine Crystals (Negative) HPF Urine Bacteria (Negative) HPF Urine Casts (Negative) LPF Urine Mucus (Negative) Urine Other (Negative) Ur Culture Indicated? Urine Glucose (Negative) mg/dL COVID-19 Source SARS-CoV-2 (PCR) (Negative) Range/Units 06/07/21 08:35 WBC (4.4-10.8) 10^3/uL RBC (3.93-5.22) 10^6/uL Hgb (11.2-15.7) g/dL Hct (36.0-46.0) % MCV (80-95) fL MCH (27.0-33.0) pg MCHC (32.0-36.0) % RDW (11.7-14.6) % Plt Count (130-400) 10^3/uL MPV (8.0-11.0) fL Immature Gran % Neutrophils % Lymphocytes % Monocytes % Eosinophils % Basophils % Nucleated RBC % % Absolute Neutrophils (1.2-6.7) 10^3/uL Absolute Lymphocytes (1.2-3.4) 10^3/uL Absolute Monocytes (0.1-0.8) 10^3/uL Absolute Eosinophils (0.0-0.7) 10^3/uL Absolute Basophils (0.0-0.2) 10^3/uL APTT (21.0-27.5) sec VBG Lactate (0.6-1.4) mmol/L Sodium (136-145) mmol/L Potassium (3.5-5.1) mmol/L Chloride (98-107) mmol/L Carbon Dioxide (21.0-32.0) mmol/L Anion Gap (3-11) mmol/L BUN (7-18) mg/dL Creatinine (0.55-1.02) mg/dL Estimated GFR/1.73 m2 (mL/min/1.73m2) Glucose (74-106) mg/dL Calcium (8.5-10.1) mg/dL Total Bilirubin (0.2-1.0) mg/dL AST (15-37) U/L ALT (14-59) U/L Alkaline Phosphatase (46-116) U/L Total Protein (6.4-8.2) g/dL Albumin (3.4-5.0) g/dL TSH (0.36-3.74) uIU/mL Urine Color (Yellow) Yellow Urine Clarity (Clear) Cloudy Urine pH (5-8) 6.0 Ur Specific [place] (1.005-1.025) 1.025 Urine Protein (Negative) mg/dL >=300 H Urine Ketones (Negative) mg/dL Trace H Urine Blood (Negative) Large H Urine Nitrite (Negative) Negative Urine Bilirubin (Negative) Small H Urine Urobilinogen (Up TO 0.2) EU/dL 0.2 Ur Leukocyte Esterase (Negative) Trace H Urine RBC (0-2) HPF >50 H Urine WBC (0-5) HPF 10-20 H Ur Epithelial Cells (Negative) HPF Few Urine Crystals (Negative) HPF Negative Urine Bacteria (Negative) HPF Moderate Urine Casts (Negative) LPF Negative Urine Mucus (Negative) Heavy Urine Other (Negative) Few Renal Ur Culture Indicated? Yes Urine Glucose (Negative) mg/dL Negative COVID-19 Source SARS-CoV-2 (PCR) (Negative) HPI General Mode of arrival: ambulatory . Date/Time Provider Initiated Documentation: 06/07/21 08:01 . Limitations to Documentation: no limitations . Information obtained by: patient . HPI Narrative: 81-year-old female with multiple medical problems including history of atrial fibrillation, diastolic heart failure, hypertension, hyponatremia, presents with chief complaint of abdominal pain. Patient notes she has had left upper abdominal pain for a couple months. She was seen here in March for abdominal pain and had negative CT imaging. She notes pain has been mild until recently. She notes she was pulled by dog leash a couple days ago and pain has worsened since that time. Pain 8 out of 10 at its worst. Currently mild. Pain is localized to left upper abdomen but also radiates into the left chest and right upper abdomen. Associ ated nighttime chills that lasted 1 hour each night for the past few days. She also notes some mild shortness of breath. Related Data Home Medications Medication Instructions Recorded Confirmed Aspercreme with Aloe 1 applic TOPICAL PRN PRN 01/26/20 06/07/21 Lactobacillus acidophilus 1 cap PO DAILY 01/26/20 06/07/21 [Acidophilus] allopurinol 200 mg PO DAILY 01/26/20 06/07/21 amlodipine 5 mg PO DAILY 01/26/20 06/07/21 docusate sodium 100 mg PO BID PRN 01/26/20 06/07/21 fluticasone propionate 1 spray INTRANASAL BID 01/26/20 06/07/21 furosemide 20 mg PO DAILY 01/26/20 06/07/21 hydrocortisone valerate 1 applic TOPICAL DAILY PRN 01/26/20 06/07/21 latanoprost 1 drp OPHTHALMIC (EYE) HS 01/26/20 06/07/21 metoprolol tartrate 75 mg PO BID 01/26/20 06/07/21 multivitamin 1 tab PO DAILY 01/26/20 06/07/21 triamcinolone acetonide 1 applic TOPICAL BID 01/26/20 06/07/21 doxycycline hyclate 100 mg PO BID #9 tab 06/07/21 nitrofurantoin monohyd/m-cryst 100 mg PO BID #9 cap 06/07/21 [Macrobid] pantoprazole [Protonix] 40 mg PO DAILY #30 tab 06/07/21 vitamin A-vitamin E 1 cap PO DAILY 06/07/21 06/07/21 Previous Rx's Medication Instructions Recorded doxycycline hyclate 100 mg PO BID #9 tab 06/07/21 nitrofurantoin monohyd/m-cryst 100 mg PO BID #9 cap 06/07/21 [Macrobid] pantoprazole [Protonix] 40 mg PO DAILY #30 tab 06/07/21 Allergies Allergy/AdvReac Type Severity Reaction Status Date / Time adhesive tape Allergy Skin Rash Unverified 06/07/21 08:44 ciprofloxacin [From Cipro] Allergy Hives Unverified 06/07/21 08:44 levofloxacin [From Levaquin] Allergy Hives Unverified 06/07/21 08:44 moxifloxacin [From Vigamox] Allergy Hives Unverified 06/07/21 08:44 Penicillins Allergy large Unverified 06/07/21 08:44 bruise from injection as child Sulfa (Sulfonamide Allergy Hives Unverified 06/07/21 08:44 Antibiotics) General Stated Complaint: RespSymp CHRISSY: 3 Review of Systems All systems reviewed & are unremarkable except as noted in HPI and below Constitutional Constitutional: Reports as per HPI, Reports chills and Denies fever(s) Gastrointestinal Gastrointestinal: Reports as per HPI [facility] Medical History Alcohol abuse Allergic rhinitis Atrial fibrillation Diastolic heart failure Dizziness [place] Glaucoma Gout HTN (hypertension) Hyponatremia Inguinal hernia Low back pain Osteoarthritis Osteoporosis Rosacea Seborrheic keratosis Sleep disturbance Thyroid mass Surgical History History of appendectomy History of colon surgery Hx of cholecystectomy Social History Smoking/Tobacco Use Status: Former Tobacco Use Smoking risk assessment performed?: Yes Alcohol Intake: current Alcohol Intake frequency: 0-2 drinks per day Alcohol type: wine Drug use: Never Substance use type: does not use Do you feel safe at home: Yes Do you feel safe in your relationship?: Yes Exam Const General: cooperative and no acute distress [facility] Head: normocephalic and atraumatic Mouth: mucous membranes dry Eyes Conjunctivae: normal conjunctivae Sclera: normal sclerae Neck Neck: trachea midline and supple Resp Auscultation: clear to auscultation bilaterally, no rales, no rhonchi and no wheezes Cardio Rate: regular rate and not tachycardic Rhythm: regular rhythm GI Palpation: soft, not firm, no guarding, no masses, not rigid and tender in the epigastrum and in the LUQ; with no rebound tenderness Auscultation: normal bowel sounds Skin General skin exam: no rashes or lesions noted Neuro General: patient alert, patient awake, patient oriented x3 and tone normal Extrem General: no calf tenderness and no edema Psych Appearance: grossly normal Mental Status: mental status grossly normal Speech and Movement: speech and movement normal Course Vital Signs Vital signs: Vital Signs Temperature 36.8 C 06/07/21 07:59 Pulse 105 H 06/07/21 07:59 Respiratory Rate 18 06/07/21 07:59 Blood Pressure 135/59 L 06/07/21 07:59 Pulse Oximetry 97 06/07/21 07:59 Temperature 36.8 C 06/07/21 07:59 Temperature Source Temporal Artery Scan 06/07/21 07:59 Pulse 105 H 06/07/21 07:59 Respiratory Rate 18 06/07/21 07:59 Blood Pressure 135/59 L 06/07/21 07:59 Blood Pressure Position Sitting 06/07/21 07:59 Pulse Oximetry 97 06/07/21 07:59 Oxygen Delivery Method Room Air 06/07/21 07:59 Oxygen Flow Rate 0 06/07/21 07:59 Lab/Test Results Lab/Test Results: Laboratory Tests Range/Units 06/07/21 06/07/21 06/07/21 08:10 08:10 08:10 WBC (4.4-10.8) 10^3/uL 7.40 RBC (3.93-5.22) 10^6/uL 3.25 L Hgb (11.2-15.7) g/dL 10.3 L Hct (36.0-46.0) % 31.1 L MCV (80-95) fL 95.7 H MCH (27.0-33.0) pg 31.7 MCHC (32.0-36.0) % 33.1 RDW (11.7-14.6) % 13.0 Plt Count (130-400) 10^3/uL 286 MPV (8.0-11.0) fL 9.3 Immature Gran % 0.4 Neutrophils % 86.1 Lymphocytes % 6.5 Monocytes % 6.1 Eosinophils % 0.4 Basophils % 0.5 Nucleated RBC % % 0 Absolute Neutrophils (1.2-6.7) 10^3/uL 6.37 Absolute Lymphocytes (1.2-3.4) 10^3/uL 0.48 L Absolute Monocytes (0.1-0.8) 10^3/uL 0.45 Absolute Eosinophils (0.0-0.7) 10^3/uL 0.03 Absolute Basophils (0.0-0.2) 10^3/uL 0.04 VBG Lactate (0.6-1.4) mmol/L 1.1 COVID-19 Source Nasal/Nares
[2021-06-07 08:45] LABS: Bilirubin Small (Negative); Blood Large (Negative); Clarity Cloudy (Clear); Glucose Negative (Negative); Ketones Trace mg/dL (Negative); Leukocyte Esterase Trace (Negative); Nitrite Negative (Negative); Specific Gravity 1.025 (1.005-1.025); Urobilinogen 0.2 EU/dL (Up TO 0.2)
[2021-06-07 08:59] LABS: PTT Activated 24.7 sec (21.0-27.5)
[2021-06-07 09:13] LABS: Bacteria Moderate HPF (Negative); C & S Indicated? Yes; Casts Negative LPF (Negative); Crystals Negative HPF (Negative); Epithelial Cells Few HPF (Negative); Mucus Heavy (Negative); Other Cells Few Renal (Negative); RBC >50 HPF (0-2)
[2021-06-07 09:20] LABS: TSH (W/Ref FT4) 3.28 uIU/mL (0.36-3.74)
[2021-06-07 09:28] LABS: COVID-19 PCR Negative (Negative)
[2021-06-07] MEDS: Omnipaque 350 MG/ML 100 ML BTL IJ (09:46)
[2021-06-07] MEDS: Normal Saline - Diluent 50 ML VIAL IV (09:48)
[2021-06-07] MEDS: MacroBID 100 MG CAP PO (11:04)
[2021-06-07] MEDS: Doxycycline Hyclate 100 MG CAP PO (11:05)
[2021-06-07] MEDS: Normal Saline 250 ML 1000 ML IV (11:44)
[2021-06-07] MEDS: Ondansetron 4 MG/2 ML VIAL IVP (11:45)
--- NOTE | 2021-06-07 12:50 | NUR.NOTE ---
Nursing Note: At the patient request the provider note, labs, CT report, EKG and referral were faxed to the [facility] for follow up of new anemia, pneumonia for early next week. Lupe Delgado
== END 2021-06-07 12:25 | disposition home or self-care (01) ==
PROVIDERS: Emergency Provider Student in an Organized Health Care Education/Training Program; PCP Family Medicine
DX: D64.9 Anemia, unspecified (principal); R10.13 Epigastric pain; J18.9 Pneumonia, unspecified organism; Z87.891 Personal history of nicotine dependence; S22.080A Wedge compression fracture of T11-T12 vertebra, initial encounter for closed fracture; X58.XXXA Exposure to other specified factors, initial encounter; R00.0 Tachycardia, unspecified; R07.89 Other chest pain; R06.02 Shortness of breath
CPT/HCPCS: 36415; 71275; 74177; 80053; 87635; 93005; 96374; 99285; 81003; 81015; 83605; 84443; 85025; 85730; 87086; 93010; J2405; J3490

== ENCOUNTER 2022-02-03 08:37 | Outpatient (CLI) | payer MEDICARE, SELFPAY ==
--- NOTE | 2022-02-03 08:30 | RT.EKG_ITS ---
APPROVED REPORT Exam: Resting ECG Reason for Exam: PAF Patient Location: O HR:87 bpm ECG Measurements Heart Rate 87 AXIS MD [id number] P [id number] QRSd 92 QRS 9 QT 378 T 13 QTc 455 Conclusion Atrial flutter...A-rate 205 Anterior infarct, age indeterminate...Q >35mS, T neg, in V2-V5 Baseline wander in lead(s) V2
== END 2022-02-03 08:38 | disposition home or self-care (01) ==
LOC: DI.CARD 08:37
PROVIDERS: PCP Family Medicine; Visit Provider Internal Medicine Cardiovascular Disease
DX: I48.91 Unspecified atrial fibrillation (principal)
CPT/HCPCS: 93010

== ENCOUNTER → 2022-02-03 10:31 | Outpatient (BNVA) | payer MEDICARE, SELFPAY | PROVIDERS: PCP Family Medicine; Referring Provider Family Medicine; Visit Provider Internal Medicine Cardiovascular Disease | DX: I48.91 Unspecified atrial fibrillation (principal); I10 Essential (primary) hypertension; I50.30 Unspecified diastolic (congestive) heart failure | CPT/HCPCS: 93005; 99203; 99214 ==

== ENCOUNTER → 2022-08-04 10:26 | Outpatient (BNVA) | payer MEDICARE, SELFPAY | PROVIDERS: PCP Family Medicine; Referring Provider Family Medicine; Visit Provider Internal Medicine Cardiovascular Disease | DX: I48.91 Unspecified atrial fibrillation (principal); I10 Essential (primary) hypertension | CPT/HCPCS: 99214; 99283 ==

== ENCOUNTER 2022-08-04 11:06 | Emergency (ER) | payer MEDICARE, SELFPAY ==
[2022-08-04 11:10] VITALS: BP 163/81; PULSE 83; RESP 16; TEMP 37.3; O2SAT 96
--- NOTE | 2022-08-04 12:09 | ED.GENADUL_ITS ---
Discharge Plan Disposition Patient Disposition: Home Condition: Good Discharge Details Clinical Impression: Anal wart, Dermatitis Primary Care Provider: Oumar Valentine ED Provider: Phylicia Casas Home Meds and New Rx's Prescriptions: New nystatin 100,000 unit/gram powder 1 applic topical TID Qty: 15 0RF Continued torsemide 20 mg tablet 40 mg PO DAILY Label Comments: 02/03/22 pt takes 20-40 mg daily RH polyethylene glycol 3350 [Miralax] 17 gram/dose powder 17 g PO DAILY allopurinol 100 mg tablet 100 mg PO DAILY biotin 1 mg capsule 1 mg PO DAILY loratadine 10 mg tablet See Rx Instructions PO DAILY PRN Rx Instructions: 1/2 - 1 tab PO daily PRN; As needed acetaminophen [Tylenol] 325 mg capsule 650 mg PO .q8 PRN fluticasone propionate 50 mcg/actuation [place],Suspension 1 spray INTRANASAL BID latanoprost 0.005 % Drops 1 drp ophthalmic (eye) HS triamcinolone acetonide 0.1 % Cream 1 applic TOPICAL BID Acidophilus Capsule 1 cap PO DAILY multivitamin Tablet 1 tab PO DAILY docusate sodium 100 mg Tablet 100 mg PO BID PRN Aspercreme with Aloe 10 % Cream 1 applic TOPICAL PRN PRN hydrocortisone valerate 0.2 % Ointment 1 applic TOPICAL DAILY PRN metoprolol tartrate 25 mg tablet 50 mg PO BID Discharge Instructions Instructions: Dermatitis (ED) Additional Instructions: As we discussed, your exam is concerning for anal warts. However, around this area, the skin appears red and irritated most consistent with fungal infection. Prior to treating the warts, we do need this area inflammation to calm down. Please apply the nystatin powder 3 times a day. Please follow-up with women's wellness in the next 2 weeks for reevaluation and discussing treatment for your anal warts. If you develop fever/chills, change in bowel habits, pain or other new/worsening symptoms please seek care urgently once again. Otherwise, please call women's wellness to schedule follow-up appointment, number listed below. Referrals: Oumar Valentine [Primary Care Provider] - Usha Hernandez [PHYSICIANS ENVIRONMENTAL AUDITOR] - Discharge Data Discharge Date/Time-TO BE ENTERED AT DEPARTURE: 08/04/22 12:54 Medical Decision Making Patient is a pleasant 82-year-old female presenting today with chief complaint of growths near her anus. She reports that been ongoing for the past few months. States that she chronically has loose stools associated with medical management after abdominal surgeries leading to increased risk of constipation and obstruction. States that she has been trying to keep the area clean and has been using moist hot towelettes to clean area. On exam, patient appears nontoxic. Skin around the anus is moist, erythematous with well defined boarders. Non tender. Most consistent with fungal infection. Not consistent with cellulitiis. Closer and abutting hte anus, there is scattered warts without irritation. Non-thrombosed hemorrhoid. Patient does report she has had hx of hemorrhoids. Juan and I discussed treatement options. While she is here primarily for the wart lesions, I am hesitant to treat the warts until the surrounding irritation and fungal infection has cleared. We discussed that the warts may self resolve. These are causing her to become stressed and are causing irritation when she has soft BM and wipes these. I advised we will treat the surrounding irritation then she can discuss further with [facility]. She and I discussed return prec autions. All of her questions and concerns were discussed, she is in agreement with this plan. Sign Out No HPI General Date/Time Provider Initiated Documentation: 08/04/22 12:03 . Limitations to Documentation: no limitations . Information obtained by: patient and RN notes reviewed . History of Present Illness 82 year old F presents to the emergency department with the chief complaint of growths near rectum, described as mild (patient denies any pain), and is localized to the buttocks. Patient reports no radiation. Patient started experiencing this month(s) and it has been constant. No relieving factors improve symptom(s), Other factors that worsen symptoms (frequent BM can cause irritation and small amount of bleeding with wiping) . Patient notes no other symptoms.. Patient did receive the following treatments prior to arrival, none Related Data Home Medications Medication Instructions Recorded Confirmed Lactobacillus acidophilus 1 cap PO DAILY 01/26/20 08/04/22 (Acidophilus capsule) docusate sodium 100 mg tablet 100 mg PO BID PRN 01/26/20 08/04/22 fluticasone propionate 50 1 spray intranasal BID 01/26/20 08/04/22 mcg/actuation nasal spray,suspension hydrocortisone valerate 0.2 % 1 applic topical DAILY PRN 01/26/20 08/04/22 topical ointment latanoprost 0.005 % eye drops 1 drp ophthalmic (eye) HS 01/26/20 08/04/22 multivitamin 1 tab PO DAILY 01/26/20 08/04/22 triamcinolone acetonide 0.1 % 1 applic topical BID 01/26/20 08/04/22 topical cream trolamine salicylate-aloe vera 10 1 applic topical PRN PRN 01/26/20 08/04/22 % topical cream (Aspercreme with Aloe) acetaminophen 325 mg capsule 650 mg PO .q8 PRN 12/03/21 08/04/22 (Tylenol) allopurinol 100 mg tablet 100 mg PO DAILY 12/03/21 08/04/22 biotin 1 mg capsule 1 mg PO DAILY 12/03/21 08/04/22 loratadine 10 mg tablet See Rx Instructions PO DAILY PRN 12/03/21 08/04/22 metoprolol tartrate 25 mg tablet 50 mg PO BID 02/03/22 08/04/22 nystatin 100,000 unit/gram topical 1 applic topical TID #15 grams 08/04/22 powder polyethylene glycol 3350 17 17 g PO DAILY 08/04/22 08/04/22 gram/dose oral powder (Miralax) torsemide 20 mg tablet 40 mg PO DAILY 08/04/22 08/04/22 Previous Rx's Medication Instructions Recorded nystatin 100,000 unit/gram topical 1 applic topical TID #15 grams 08/04/22 powder Allergies Allergy/AdvReac Type Severity Reaction Status Date / Time cefaclor Allergy Unknown Verified 08/04/22 11:14 lisinopril Allergy Unknown Verified 08/04/22 11:14 niacin Allergy Unknown Verified 08/04/22 11:14 [id number] Reductase Allergy Unknown Verified 08/04/22 11:14 Inhibitor adhesive tape Allergy Skin Rash Verified 08/04/22 11:14 ciprofloxacin [From Cipro] Allergy Hives Verified 08/04/22 11:14 levofloxacin [From Levaquin] Allergy Hives Verified 08/04/22 11:14 moxifloxacin [From Vigamox] Allergy Hives Verified 08/04/22 11:14 Sulfa (Sulfonamide Allergy Hives Verified 08/04/22 11:14 Antibiotics) General Stated Complaint: RashLesion CHRISSY: 4 Review of Systems Constitutional Constitutional: Reports as per HPI, Denies chills and Denies fever(s) Gastrointestinal Gastrointestinal: Reports as per HPI, Denies abdominal pain, Denies melena, Denies bloating, Denies hematochezia, Denies change in bowel habits (typically has irregular BM, has been soft, no blood in stool) and Reports constipation (typical to have constipation or soft BM) Genitourinary Genitourinary: Denies genital pruritis, Denies genital lesions (lesions are isolated to the rectum), Denies dysuria, Denies pelvic pain, Denies sexual dysfunction (patient is not sexually active), Denies vaginal discharge, Denies vaginal odor and Denies vaginal pruritus Musculoskeletal Musculoskeletal: Reports as per HPI Integumentary/Breasts Skin/Breast: Reports as per HPI Neurologic Neurologic: Reports as per HPI PFS All Active Problems (Updated 08/04/22 @ 12:30 by ARIANA Perez) Anal wart (Acute) Dermatitis (Acute) HTN (hypertension) (Chronic) Diastolic heart failure (Acute) Atrial fibrillation (Chronic) Abdominal pain (Acute) Anemia (Chronic) Epigastric abdominal pain (Acute) Pneumonia of both lower lobes (Acute) Medical History Alcohol abuse Allergic rhinitis [place]izziness [place] Glaucoma Gout Hyponatremia Inguinal hernia Low back pain Osteoarthritis Osteoporosis Rosacea Seborrheic keratosis Sleep disturbance Thyroid mass Surgical History History of appendectomy History of colon surgery Hx of cholecystectomy Social History Smoking/Tobacco Use Status: Former Tobacco Use Smoking risk assessment performed?: Yes Alcohol Intake: current Alcohol Intake frequency: 0-2 drinks per day Alcohol type: wine Drug use: Never Substance use type: does not use Do you feel safe at home: Yes Do you feel safe in your relationship?: Yes Exam Const General: cooperative, healthy appearing, comfortable, no acute distress and well developed Nutritional Appearance: average body habitus and well nourished Orientation: alert and awake Resp Effort & Inspection: normal respiratory effort, able to speak in complete sent ences and no respiratory distress Cardio Rate: regular rate Rhythm: regular rhythm GI Inspection: normal to inspection Rectal Exam - female: visual inspection normal, hemorrhoids (none thrombosed), No laceration, lesions (scattered, small, flat, flesh colored lesions consistent with wart), No mass, No tenderness and other (skin around this is moist, erythematous) Skin General skin exam: other (warts) Neuro General: patient alert and patient awake Cognition: normal cognition Speech: speech normal Gait: normal gait Sensory Exam: no sensory deficits noted Psych Appearance: grossly normal and well kempt Mental Status: mental status grossly normal Speech and Movement: speech and movement normal Course Vital Signs Vital signs: Vital Signs Temperature 37.3 C 08/04/22 11:10 Pulse 83 08/04/22 11:10 Respiratory Rate 16 08/04/22 11:10 Blood Pressure 163/81 H 08/04/22 11:10 Pulse Oximetry 96 08/04/22 11:10 Temperature 37.3 C 08/04/22 11:10 Temperature Source Temporal Artery Scan 08/04/22 11:10 Pulse 83 08/04/22 11:10 Respiratory Rate 16 08/04/22 11:10 Respiratory Effort 08/04/22 11:15 Blood Pressure 163/81 H 08/04/22 11:10 Blood Pressure Position Sitting 08/04/22 11:10 Pulse Oximetry 96 08/04/22 11:10 Oxygen Delivery Method Room Air 08/04/22 11:10 Oxygen Flow Rate 0 08/04/22 11:10 Pain Level 0 08/04/22 11:10
== END 2022-08-04 12:54 | disposition home or self-care (01) ==
PROVIDERS: Emergency Provider Physician Assistant; PCP Neuromusculoskeletal Medicine & OMM
DX: A63.0 Anogenital (venereal) warts (principal); L30.8 Other specified dermatitis
CPT/HCPCS: 99283

== ENCOUNTER → 2023-08-31 12:54 | Outpatient (BNVA) | payer MEDICARE, SELFPAY | PROVIDERS: PCP Neuromusculoskeletal Medicine & OMM; Visit Provider Internal Medicine Interventional Cardiology | DX: I48.11 Longstanding persistent atrial fibrillation (principal); R60.0 Localized edema | CPT/HCPCS: 99213 ==

== ENCOUNTER 2024-08-29 08:30 | Outpatient (CLI) | payer MEDICARE, SELFPAY ==
--- NOTE | 2024-08-29 08:30 | RT.EKG_ITS ---
APPROVED REPORT Exam: Resting ECG Reason for Exam: afib Patient Location: O HR:75 bpm ECG Measurements Heart Rate 75 AXIS LA [id number] P [id number] QRSd 85 QRS -7 QT 418 T 59 QTc 467 Conclusion Atrial fibrillation...? atrial activity Inferior infarct, old...Q >35mS, II III aVF Lateral leads are also involved...lat Q or ST-T abnormalities
== END 2024-08-29 08:31 | disposition home or self-care (01) ==
LOC: DI.CARD 08:30
PROVIDERS: PCP Neuromusculoskeletal Medicine & OMM; Visit Provider Registered Nurse
DX: I48.11 Longstanding persistent atrial fibrillation (principal)
CPT/HCPCS: 93010

== ENCOUNTER → 2024-08-29 13:03 | Outpatient (BNVA) | payer MEDICARE, SELFPAY | PROVIDERS: PCP Neuromusculoskeletal Medicine & OMM; Visit Provider Registered Nurse | DX: R94.31 Abnormal electrocardiogram [ECG] [EKG] (principal); I25.2 Old myocardial infarction; I48.11 Longstanding persistent atrial fibrillation | CPT/HCPCS: 93005; 99214 ==

== ENCOUNTER 2024-09-23 01:03 | Outpatient (CLI) | payer MEDICARE, SELFPAY ==
--- OUTSIDE RECORDS SUMMARY | 2024-09-23 01:26 | XMS_ITS | Encounter Summary ---
Author Organization [facility] Address [address] [place] [address] Care Team Providers Care Finishing Range Operator Name Role Phone Unavailable Primary Care Provider Unavailabl e Encounter Details Date Type Department Care Team (Late st Contact Info) Description 03/25/2022 Lab Requisition [facility] Pathology & Laboratory Medicine - [facility] [address] [place] [address] Outr Resulting Lab, Provider Social History Tobacco Use Types Packs/Day Years Used Date Smoking Tobacco: Never Assessed Comments Unknown Sex and Gender Information Value Date Recorded Sex Assigned at Not on file Legal Sex Female 17:38 EDT Gender Identity Not on file Sexual Orientation Not on file documented as of this encounter Plan of Treatment Not on file documented as of this encounter Procedures Procedure Name Priority Date/Time Associated Diagnosis Comments T3 FREE Routine 03/25/2022 13:18 EDT documented in this encounter Results * T3 FREE (03/25/2022 13:18 EDT) T3, Free 3.5 2.8 - 5.3 pg/mL 03/25/2022 21:32 EDT [facility] Blood VENOUS BLOOD / Unknown 03/25/2022 13:18 EDT 03/25/2022 20:56 EDT us Provider Outr Resulting Lab CHEMISTRY & BLOOD GA S ORDERABLES Final Result [facility] [address] [place] [address] documented in this encounter Visit Diagnoses Not on filedocumented in this encounter
--- OUTSIDE RECORDS SUMMARY | 2024-09-23 01:26 | XMS_ITS | Referral Summary ---
Author Organization [facility] Address [address] [place] [address] Care Team Providers Care Beater Machine Operator Name Role Phone Unavailable Primary Care Provider Unavailabl e Social History Tobacco Use Types Packs/Day Years Used Date Smoking Tobacco: Never Assessed Comments Unknown Sex and Gender Information Value Date Recorded Sex Assigned at Not on file Legal Sex Female 17:38 EDT Gender Identity Not on file Sexual Orientation Not on file Plan of Treatment Not on file
--- OUTSIDE RECORDS SUMMARY | 2024-09-23 01:26 | XMS_ITS | Patient Health Record ---
Author Organization [facility] Address [address] [place] [address] Care Team Providers Care Sheep Clipper Name Role Phone Migration, Provider Unavailable Unavailable Reason For Referral No Information Immunizations Vaccine Route Administration Date Status Comme nts Covid-19 Unknown 07/15/2021 Administered Source VFC Code: V00 - VFC eligibility not determined/unknown Covid-19 Unknown 07/15/2021 Others Covid-19 Unknown 12/17/2021 Administered Source VFC Code: V00 - VFC eligibility not determined/unknown Covid-19 Unknown 12/17/2021 Others Encounters Encounter Location Date Provider Diagnosis [facility] [address] [place] [address] 09/10/2024 Provider Migration [facility] [address] [place] [address] 09/11/2024 Provider Migration Plan Of Treatment No Information Insurance Providers Payer Name Payer Address Payer Phone Subscriber Number Group Number Insured Name Patient Relationship to Insured Coverage Start Date Coverage End Date [employer] of [place] [address] [place], [place] [id number] [phone] [id number] EMILI FRANCIS Self - patient is the insured A[employer] Medicare Supplementa l [address] [place], [place] [id number] EMILI FRANCIS Self - patient is the insured
--- OUTSIDE RECORDS SUMMARY | 2024-09-23 01:26 | XMS_ITS ---
Author Organization [facility] Address [address] [place] [address] Care Team Providers Care Skating Rink Ice Maker Name Role Phone Migration, Provider Unavailable Unavailable REASON FOR VISIT EMR-[facility] Encounters Encounter Location Date Provider Diagnosis [facility] [address] [place] [phone] 09/11/2024 Provider Migration Plan Of Treatment No Information Progress Notes * VILLALOBOSMICHAELEMILIDOB: (84 yo F)Acc No.[id number]:09/11/2024 Patient:?Kwame REES :1940???Age:84 Y???Sex:Female Address:[address] [place] [address], [phone] Subjective: * Chief Complaints: * [place] [place] Medical History:? * Surgical History:? * Hospitalization/Major Diagno stic Procedure:? * Medications:? Objective: * Physical Examination:? Plan: * Treatment: * Procedure Codes:? Billing Information: * Visit Code:? * Procedure Codes:? * * Date:?
--- OUTSIDE RECORDS SUMMARY | 2024-09-23 01:26 | XMS_ITS ---
Author Organization [facility] Address [address] [place] [address] Care Team Providers Care Tool Smith Name Role Phone Migration, Provider Unavailable Unavailable REASON FOR VISIT EMR-[facility] Encounters Encounter Location Date Provider Diagnosis [facility] [address] [place] [phone] 09/10/2024 Provider Migration Plan Of Treatment No Information Progress Notes * VILLALOBOSMICHAELEMILIDOB: (84 yo F)Acc No.[id number]:09/10/2024 Patient:?Kwame REES :1940???Age:84 Y???Sex:Female Address:[address] [place] [address], [phone] Subjective: * Chief Complaints: * ???[facility] [place] * Medical History:? * Surgical History:? * Hospitalization/Major Diagno stic Procedure:? * Medications:? Objective: * Physical Examination:? Plan: * Treatment: * Procedure Codes:? Billing Information: * Visit Code:? * Procedure Codes:? * * Date:?
--- OUTSIDE RECORDS SUMMARY | 2024-09-23 01:26 | XMS_ITS | Clinical Summary ---
Author Organization [facility] Address [address] [place] [address] Care Team Providers Care Slip Tender Name Role Phone Unavailable Primary Care Provider Unavailabl e Social History Tobacco Use Types Packs/Day Years Used Date Smoking Tobacco: Never Assessed Comments Unknown Sex and Gender Information Value Date Recorded Sex Assigned at Not on file Legal Sex Female 17:38 EDT Gender Identity Not on file Sexual Orientation Not on file Plan of Treatment Health Maintenance Due Date Last Done Comments Fall Risk Screening 2006 RSV Immunization ( o r 60+ Years) (1 - 1-dose 75+ series) 2016 COVID-19 Vaccine ( season) 2024
[2024-09-23 12:27] LABS: Abs Immature Grans 0.01 10^3/uL (0.0-0.06); Absolute Basophil Count 0.07 10^3/uL (0.0-0.2); Absolute Eosinophil Count 0.24 10^3/uL (0.0-0.7); Absolute Lymphocyte Count 1.57 10^3/uL (1.2-3.4); Absolute Monocyte Count 0.51 10^3/uL (0.1-0.8); Absolute Neutrophil Count 4.37 10^3/uL (1.2-6.7); Eosinophils % 3.5 %; HCT 40.3 % (36.0-46.0); Immature Grans % 0.1 %; Lymphocytes % 23.2 %; MCH 35.4 pg (27.0-33.0); MCHC 34.7 % (32.0-36.0); MCV 102 fL (80-95); MPV 9.9 fL (8.0-11.0); Monocytes % 7.5 %; Neutrophils % 64.7 %; Platelet Count 208 10^3/uL (130-400); RBC 3.96 10^6/uL (3.93-5.22); RDW 12.6 % (11.7-14.6); RDW-SD 47.1 fL; WBC 6.77 10^3/uL (4.4-10.8)
[2024-09-23 12:37] LABS: Hemoglobin A1C 5.1 % (<5.7)
[2024-09-23 12:42] LABS: ALT 27 U/L (14-59); AST 24 U/L (15-37); Albumin 3.9 g/dL (3.4-5.0); Alkaline Phosphatase 105 U/L (46-116); Anion Gap 8.1 mmol/L (3-11); BUN 34 mg/dL (7-18); Bilirubin, Total 0.69 mg/dL (0.2-1.0); CO2 31.9 mmol/L (21.0-32.0); CREATININE 1.6 mg/dL (0.55-1.02); Calcium 9.7 mg/dL (8.5-10.1); Calculated LDL 117 mg/dL (<100); Chloride 101 mmol/L (98-107); Cholesterol 210 mg/dL (<200); Glucose 126 mg/dL (74-106); HDL Cholesterol 67 mg/dL (40-60); Potassium 3.3 mmol/L (3.5-5.1); Sodium 141 mmol/L (136-145); TSH (W/Ref FT4) 5.25 uIU/mL (0.36-3.74); Total Protein 7.1 g/dL (6.4-8.2); Triglyceride 130 mg/dL (<150)
== END 2024-09-23 01:04 | disposition home or self-care (01) ==
LOC: LOS 01:03
PROVIDERS: PCP Neuromusculoskeletal Medicine & OMM; Visit Provider Specialist/Technologist Athletic Trainer
DX: Z86.2 Personal history of diseases of the blood and blood-forming organs and certain disorders involving the immune mechanism (principal); Z13.9 Encounter for screening, unspecified; Z13.220 Encounter for screening for lipoid disorders; Z13.29 Encounter for screening for other suspected endocrine disorder
CPT/HCPCS: 36415; 80053; 80061; 83036; 84439; 84443; 85025

== ENCOUNTER 2025-01-23 12:02 | Emergency (ER) | payer MEDICARE, SELFPAY ==
[2025-01-23] VITALS (8 sets, daily range): BP systolic 194–200; BP diastolic 83–85; PULSE 56–72; RESP 16; TEMP 36.4; O2SAT 93–96
--- NOTE | 2025-01-23 12:00 | DI.RAD_ITS ---
Exam(s) XR LUMBAR SPINE COMPLETE EXAM: XR LUMBAR SPINE COMPLETE CLINICAL HISTORY: Hx hardware, recent strain. TECHNIQUE: 2D digital imaging was performed of the lumbar spine. Five images were obtained. AP, la teral, right oblique, left oblique and L5-S1 spot views were obtained. COMPARISON: CT CT CHEST PE ABD PELVIS W from 06/07/2021 FINDINGS: BONES: No fracture or destructive lesion. There are endplate osteophytes at multiple levels of the stacy mbar spine. Facet arthropathy is seen throughout the lumbar spine. The bones are osteopenic. There is again seen posterior spinal surgery from L4-L5 and disc surgery at the L4-L5 level. The orthoped ic hardware appears stable compared to the prior examination from 06/07/2021. DISKS: There is disc space narrowing at L2-L3, L3-L4 and L5-S1. ALIGNMENT: There is a left convex thoracolumbar scoliosis. No spondylolysis or spondylolisthesis. SOFT TISSUE: Atherosclerotic calcification is present. The calcifications in the pelvis are consiste nt with calcified uterine fibroids. IMPRESSION: 1. Stable appearance of the orthopedic hardware. 2. Multilevel degenerative changes in the lumbar spine. 3. No acute fractures or subluxations. DATA REPOSITORY: RADIATION DOSE DELIVERED:
[2025-01-23] MEDS: Acetaminophen 500 MG TAB 1000 MG PO (12:40)
--- NOTE | 2025-01-23 12:43 | ED.GENADUL_ITS ---
Discharge Plan Disposition Patient Disposition: Home Condition: Stable Discharge Details Clinical Impression: Low back pain Primary Care Provider: Oumar Valentine ED Provider: Ese Roque Home Meds and New Rx's Prescriptions: No Action torsemide 20 mg tablet 40 mg PO DAILY Patient Comments: 02/03/22 pt takes 20-40 mg daily RH polyethylene glycol 3350 [Miralax] 17 gram/dose powder 17 g PO DAILY allopurinol 100 mg tablet 100 mg PO DAILY biotin 1 mg capsule 1 mg PO DAILY loratadine 10 mg tablet See Rx Instructions PO DAILY PRN Rx Instructions: 1/2 - 1 tab PO daily PRN; As needed acetaminophen [Tylenol] 325 mg capsule 650 mg PO .q8 PRN fluticasone propionate 50 mcg/actuation [place],Suspension 1 spray INTRANASAL BID latanoprost 0.005 % Drops 1 drp ophthalmic (eye) HS Acidophilus Capsule 1 cap PO DAILY multivitamin Tablet 1 tab PO DAILY docusate sodium 100 mg Tablet 100 mg PO BID PRN Aspercreme with Aloe 10 % Cream 1 applic TOPICAL PRN PRN metoprolol tartrate 25 mg tablet 50 mg PO BID Patient Comments: 50 mg in am, 75 mg pm nystatin 100,000 unit/gram powder 1 applic topical TID Qty: 15 0RF Discharge Instructions Instructions: Low back pain in adults Additional Instructions: You were seen in the emergency department today for evaluation of low back pain after a twisting injury on Thursday. In our department you had a full physical examination performed, and had an x-ray image that did not show any displacement of your hardware, fractures, or other abnormalities to explain your symptoms, other than chronic [id number] changes in your lower back. I recommend that you continue your ibuprofen, and supplement with Tylenol. You will need to be reevaluated by your primary care provider to discuss this injury, as well as your morning nausea. If you still have bad back pain that has not improved after 2 weeks, please talk to your primary care provider regarding additional imaging. Thank you for allowing us to be part of your care. HPI General Mode of arrival: ambulatory . Date/Time Provider Initiated Documentation: 01/23/25 12:14 . Limitations to Documentation: no limitations . Information obtained by: patient, EMS and old records reviewed . HPI Narrative: This is an 84-year-old female patient with a past medical history significant for sciatica and low back pain status post lumbar spine fixation with hardware still in place, history of poorly controlled hypertension, atrial fibrillation, who is presenting for evaluation of low back injury. The patient reports that on Thursday, she was lifting a scale to weigh lobster, states that she is typically very careful not to lift in a twisting fashion but did on this occasion, and felt a worsening of her lower back pain on the left greater than right side. She reports that her pain has not significantly worsened over the past several days, but has not improved. She states that she has not taken any medications for management of this pain, has felt some twinges when she gets herself up from the bathroom with her bar. She has not noted any numbness or tingling, bowel or bladder incontinence or changes, nor weakness. She sought care today and was noted to be hemodynamically appropriate and neuro intact by EMS. The patient incidentally also notes some nausea in the mornings, which she attributes to postnasal drip and swallowing mucus during allergy season. This symptom is currently not present nor bothering the patient. Related Data Home Medications ?Medication ?Instructions ?Recorded ?Confirmed Lactobacillus acidophilus 1 cap PO DAILY 01/26/20 01/23/25 (Acidophilus capsule) docusate sodium 100 mg tablet 100 mg PO BID PRN 01/26/20 01/23/25 fluticasone propionate 50 1 spray intranasal BID 01/26/20 01/23/25 mcg/actuation nasal spray,suspension latanoprost 0.005 % eye drops 1 drp ophthalmic (eye) HS 01/26/20 01/23/25 multivitamin 1 tab PO DAILY 01/26/20 01/23/25 trolamine salicylate-aloe vera 10 1 applic topical PRN PRN 01/26/20 01/23/25 % topical cream (Aspercreme with Aloe) acetaminophen 325 mg capsule 650 mg PO .q8 PRN 12/03/21 01/23/25 (Tylenol) allopurinol 100 mg tablet 100 mg PO DAILY 12/03/21 01/23/25 biotin 1 mg capsule 1 mg PO DAILY 12/03/21 01/23/25 loratadine 10 mg tablet See Rx Instructions PO DAILY PRN 12/03/21 01/23/25 metoprolol tartrate 25 mg tablet 50 mg PO BID 02/03/22 01/23/25 nystatin 100,000 unit/gram topical 1 applic topical TID #15 grams 08/04/22 01/23/25 powder polyethylene glycol 3350 17 17 g PO DAILY 08/04/22 01/23/25 gram/dose oral powder (Miralax) torsemide 20 mg tablet 40 mg PO DAILY 08/04/22 01/23/25 Previous Rx's ?Medication ?Instructions ?Recorded nystatin 100,000 unit/gram topical 1 applic topical TID #15 grams 08/04/22 powder Allergies Allergy/AdvReac Type Severity Reaction Status Date / Time cefaclor Allergy Intermediate Hives Verified 01/23/25 12:07 lisinopril Allergy Intermediate Other (See Verified 01/23/25 12:07 Comment) niacin Allergy Intermediate Hives Verified 01/23/25 12:07 Tzudixh-LXT-YaD Reductase Allergy Unknown Other (See Verified 01/23/25 12:07 Inhibitor Comment) adhesive tape Allergy Skin Rash Verified 01/23/25 12:07 ciprofloxacin (From Cipro) Allergy Hives Verified 01/23/25 12:07 levofloxacin (From Levaquin) Allergy Hives Verified 01/23/25 12:07 moxifloxacin (From Vigamox) Allergy Hives Verified 01/23/25 12:07 Sulfa (Sulfonamide Allergy Hives Verified 01/23/25 12:07 Antibiotics) General Stated Complaint: Nk/Back Pain CHRISSY: 4 Exam Narrative Exam Narrative: Gen: Awake and alert, in no apparent distress HEENT: Non-icteric sclera Neck: Supple Lungs: No apparent respiratory distress, normal respiratory effort. CV: Appears well perfused, heart with regular rate and rhythm Abdomen: Non-distended, soft MSK: Moves 4 extremities without apparent limitation in ROM. Midline T and L- spine without tenderness or overlying skin changes, well-healed surgical scars appreciated over lumbar spine. No significant worsening of tenderness with palpation over the SI joints, left sided lumbar paraspinal muscle slightly tender without palpable spasm. Skin: Visualized skin without rashes, cyanosis. Neuro: Normal Gait, no obvious focal deficits or facial asymmetry. Speaks in full, clear sentences. The patient has full strength and sensation of her bilateral lower extremities, denies saddle anesthesia Psych: Appropriate for situation. Course Vital Signs Vital signs: Vital Signs Temperature 36.4 C 01/23/25 12:05 Pulse 72 01/23/25 12:05 Respiratory Rate 16 01/23/25 12:05 Blood Pressure 200/83 H 01/23/25 12:05 Pulse Oximetry 94 01/23/25 12:05 Temperature 36.4 C 01/23/25 12:05 Pulse 72 01/23/25 12:05 Respiratory Rate 16 01/23/25 12:05 Blood Pressure 200/83 H 01/23/25 12:05 Pulse Oximetry 94 01/23/25 12:05 Pain Level 5 01/23/25 12:05 Medical Decision Making This is a an 84-year-old female patient presenting for evaluation of low back pain after a twisting injury several days ago. My differential includes but is not limited to muscular strain, ligamentous sprain, certainly considered fracture and dislocation as well as hardware disruption, though the mechanism will be less consistent with these injuries. Reassuringly, the patient is neuro intact, without red flag symptoms to increase my concern for emergent causes of back pain such as cauda equina, spinal nerve root compression, osteomyelitis or discitis, spinal epidural abscess or hematoma. Currently the patient has very well-controlled pain. She is hypertensive, states she has not taken her medications today and has a history documented about controlled hypertension. No abdominal pain to significantly increase my concern for aortic pathology. We obtained a an x-ray of the affected lumbar spine to evaluate the hardware, and provide the patient with a dose of Tylenol. - X-ray imaging reviewed by myself, showing degenerative changes but no malpositioning or fracturing of the hardware, no fracture or dislocation of the lumbar spine, and the patient reports on reassessment that her pain has remained not bothersome. I did school counsellor her on multimodal pain control, including ibu profen, Tylenol, and topical medication such as lidocaine cream (patient with an allergy to adhesives). I recommended that the patient follow-up with her primary care provider in the next few days for reassessment, as if her pain persists without improvement for more than 2 weeks, she may require reassessment and advanced imaging to evaluate further abnormalities as a cause of her symptoms. At this time, the patient has had a full medical evaluation and is safe for discharge to home. They are hemodynamically stable, ambulatory, and tolerating PO. They are understanding of the follow-up plan and return precautions. They left our facility without incident. Ese Roque MD Quality:SDOH Health Related Social Needs: No Data to Display PFSH All Active Problems (Updated 01/23/25 @ 13:48 by Ese Roque MD) Low back pain (Acute) Edema of both feet (Acute) HTN (hypertension) (Chronic) Diastolic heart failure (Acute) Atrial fibrillation (Chronic) Abdominal pain (Acute) Anemia (Chronic) Epigastric abdominal pain (Acute) Pneumonia of both lower lobes (Acute) Medical History (Updated 01/23/25 @ 13:48 by Ese Roque MD) Atrial flutter Anal warts Inguinal hernia Low back pain Glaucoma Gout Osteoarthritis Osteoporosis Allergic rhinitis Seborrheic keratosis Rosacea Falls Dizziness Alcohol abuse Sleep disturbance Thyroid mass Hyponatremia Surgical History History of colon surgery Hx of cholecystectomy History of appendectomy Social History Smoking/Tobacco Use Status: Former Tobacco Use Smoking risk assessment performed?: Yes Alcohol Intake: current Alcohol Intake frequency: 0-2 drinks per day Alcohol type: wine Drug use: Never Substance use type: does not use Do you feel safe at home: Yes Do you feel safe in your relationship?: Yes
== END 2025-01-23 14:11 | disposition home or self-care (01) ==
PROVIDERS: Emergency Provider Emergency Medicine; PCP Neuromusculoskeletal Medicine & OMM
DX: M54.50 Low back pain, unspecified (principal)
CPT/HCPCS: 99283 ×2; 72110

== ENCOUNTER 2025-03-21 06:47 | Observation (INO) | payer MEDICARE, SELFPAY ==
[2025-03-21] VITALS (37 sets, daily range): BP systolic 126–176; BP diastolic 44–69; PULSE 55–78; RESP 13–22; TEMP 36–37; O2SAT 91–100
--- NOTE | 2025-03-21 07:15 | RT.EKG_ITS ---
APPROVED REPORT Exam: Resting ECG Reason for Exam: upper abd pain Patient Location: E HR:61 bpm ECG Measurements Heart Rate 61 AXIS LA 325 P -53 QRSd 93 QRS -1 QT 381 T 35 QTc 384 Conclusion Sinus rhythm, rate 61 No interval abnormalities No STEMI ST segment depression V3-V6, slightly increased from priors
--- NOTE | 2025-03-21 07:18 | W.ED.GENAD ---
Discharge Plan Disposition Patient Disposition: Admit to [facility] Condition: Stable Discharge Details Clinical Impression: Acute exacerbation of CHF (congestive heart failure), Elevated troponin, Hypokalemia, Anemia, Right rib fracture, Increased endometrial stripe thickness Primary Care Provider: Oumar Valentine ED Provider: Ese Roqeu Home Meds and New Rx's Prescriptions: No Action torsemide 20 mg tablet 40 mg PO DAILY Patient Comments: 02/03/22 pt takes 20-40 mg daily RH polyethylene glycol 3350 [Miralax] 17 gram/dose powder 17 g PO DAILY allopurinol 100 mg tablet 100 mg PO DAILY biotin 1 mg capsule 1 mg PO DAILY loratadine 10 mg tablet See Rx Instructions PO DAILY PRN Rx Instructions: 1/2 - 1 tab PO daily PRN; As needed acetaminophen [Tylenol] 325 mg capsule 650 mg PO .q8 PRN fluticasone propionate 50 mcg/actuation [place],Suspension 1 spray INTRANASAL BID latanoprost 0.005 % Drops 1 drp ophthalmic (eye) HS Acidophilus Capsule 1 cap PO DAILY multivitamin Tablet 1 tab PO DAILY docusate sodium 100 mg Tablet 100 mg PO BID PRN Aspercreme with Aloe 10 % Cream 1 applic TOPICAL PRN PRN metoprolol tartrate 25 mg tablet 50 mg PO BID Patient Comments: 50 mg in am, 75 mg pm nystatin 100,000 unit/gram powder 1 applic topical TID Qty: 15 0RF timolol maleate 0.5 % drops 1 drp ophthalmic (eye) BID Systane (PF) 0.4-0.3 % dropperette 1 drp ophthalmic (eye) DAILY PRN HPI General Mode of arrival: EMS. Date/Time Provider Initiated Documentation: 03/21/25 06:52. Limitations to Documentation: no limitations. Information obtained by: patient, EMS and old records reviewed. HPI Narrative: This is an 84-year-old female patient with a past medical history significant for atrial fibrillation not on anticoagulation, history of hypertension, diastolic heart failure, anemia, and frequent falls presenting for evaluation of right flank pain. The patient reports that she has had a constellation of symptoms for quite an extended period of time. She has had swelling of her lower extremities with easy bruising, has been wearing compression stockings but has noticed that this only seems to shift the edema up towards her knees. She states that on 26 February she took a fall, states that she did not hit anything going down, but has. She was taking Tylenol, which she states does not work for her, as well as ibuprofen. Given the easy bruising she was counseled by her family member to stop taking the ibuprofen. Last week she took another fall, sliding down the stairs and sustained bruising to her right flank. She reports that she inflamed her kidney and has had ongoing pain since then. She denies chest pain, shortness of breath, dysuria, hematuria. She has some general discomfort in her abdomen, has a known hiatal hernia and reports poor appetite at baseline. States that her last normal stool was last night. States that she does not have any loss of consciousness, dizziness, or chest pain that precedes these falls. Her fall last week was specifically attributed to wearing large slippers. Related Data Home Medications ?Medication ?Instructions ?Recorded ?Confirmed Lactobacillus acidophilus 1 cap PO DAILY 01/26/20 03/21/25 (Acidophilus capsule) docusate sodium 100 mg tablet 100 mg PO BID PRN 01/26/20 03/21/25 fluticasone propionate 50 1 spray intranasal BID 01/26/20 03/21/25 mcg/actuation nasal spray,suspension latanoprost 0.005 % eye drops 1 drp ophthalmic (eye) HS 01/26/20 03/21/25 multivitamin 1 tab PO DAILY 01/26/20 03/21/25 trolamine salicylate-aloe vera 10 1 applic topical PRN PRN 01/26/20 03/21/25 % topical cream (Aspercreme with Aloe) acetaminophen 325 mg capsule 650 mg PO .q8 PRN 12/03/21 03/21/25 (Tylenol) allopurinol 100 mg tablet 100 mg PO DAILY 12/03/21 03/21/25 biotin 1 mg capsule 1 mg PO DAILY 12/03/21 03/21/25 loratadine 10 mg tablet See Rx Instructions PO DAILY PRN 12/03/21 03/21/25 metoprolol tartrate 25 mg tablet 50 mg PO BID 02/03/22 03/21/25 nystatin 100,000 unit/gram topical 1 applic topical TID #15 grams 08/04/22 03/21/25 powder polyethylene glycol 3350 17 17 g PO DAILY 08/04/22 03/21/25 gram/dose oral powder (Miralax) torsemide 20 mg tablet 40 mg PO DAILY 08/04/22 03/21/25 peg 400-propylene glycol (PF) 0.4 1 drp ophthalmic (eye) DAILY PRN 03/21/25 03/21/25 %-0.3 % eye drops in a dropperette (Systane (PF)) timolol maleate 0.5 % eye drops 1 drp ophthalmic (eye) BID 03/21/25 03/21/25 Previous Rx's ?Medication ?Instructions ?Recorded nystatin 100,000 unit/gram topical 1 applic topical TID #15 grams 08/04/22 powder Allergies Allergy/AdvReac Type Severity Reaction Status Date / Time cefaclor Allergy Intermediate Hives Verified 03/21/25 06:51 lisinopril Allergy Intermediate Other (See Verified 03/21/25 06:51 Comment) niacin Allergy Intermediate Hives Verified 03/21/25 06:51 Dmlweal-LYU-KcZ Reductase Allergy Unknown Other (See Verified 03/21/25 06:51 Inhibitor Comment) adhesive tape Allergy Skin Rash Verified 03/21/25 06:51 ciprofloxacin (From Cipro) Allergy Hives Verified 03/21/25 06:51 levofloxacin (From Levaquin) Allergy Hives Verified 03/21/25 06:51 moxifloxacin (From Vigamox) Allergy Hives Verified 03/21/25 06:51 Sulfa (Sulfonamide Allergy Hives Verified 03/21/25 06:51 Antibiotics) General Stated Complaint: FlankPain CHRISSY: 3 Exam Narrative Exam Narrative: Gen: Awake and alert, in no apparent distress HEENT: Non-icteric sclera, PERRL, scalp atraumatic Neck: Supple, no C-spine tenderness or step-offs, full spontaneous range of motion Lungs: No apparent respiratory distress, normal respiratory effort. Lung sounds clear and equal bilaterally without wheezes, rhonchi, rales CV: Appears well perfused, heart with regular rate and rhythm, strong distal pulses Abdomen: Non-distended, soft, tender to palpation in the epigastric and right upper quadrant without rigidity, rebound, or guarding. MSK: Moves 4 extremities without apparent limitation in ROM. No T or L-spine tenderness or step-offs. The patient has a large area of ecchymosis overlying the right flank with tenderness over this region. Pelvis is stable to AP compression. Bilateral lower extremities with 1+ peripheral edema, bruising appreciated to the bilateral calves Skin: Visualized skin without rashes, cyanosis. Extensive bruising as noted above. Neuro: Normal Gait, no obvious focal deficits or facial asymmetry. Speaks in full, clear sentences. Psych: Appropriate for situation. Course Vital Signs Vital signs: Vital Signs Temperature 36.7 C 03/21/25 06:45 Pulse 65 03/21/25 06:45 Respiratory Rate 18 03/21/25 06:45 Blood Pressure 174/62 H 03/21/25 06:45 Pulse Oximetry 94 03/21/25 06:45 Temperature 36.7 C 03/21/25 06:45 Temperature Source Oral 03/21/25 06:45 Pulse 65 03/21/25 06:45 Respiratory Rate 18 03/21/25 06:45 Blood Pressure 174/62 H 03/21/25 06:45 Pulse Oximetry 94 03/21/25 06:45 Oxygen Delivery Method Room Air 03/21/25 06:45 Oxygen Flow Rate 0 03/21/25 06:45 Pain Level 7 03/21/25 06:45 Medical Decision Making This is an 84-year-old female patient presenting for evaluation of flank pain and bruising after numerous falls, abdominal discomfort, and leg swelling. My differential includes but is not limited to ecchymosis, hematoma, certainly considered retroperitoneal hematoma, rib fracture, solid organ injury. The patient has no midline spine pain to suggest fracture, did not strike her head and does not take anticoagulants, and her lack of neurodeficits is reassuring against severe intracranial hemorrhage. Considered heart failure exacerbation, coagulopathy. The patient's leg swelling is symmetrical, and I have a lower concern for DVT, and the patient does not have any cellulitic changing suggestive of infection. Considered metabolic electrolyte derangements, dehydration, anemia, kidney injury. Considered UTI, kidney stone. Given the location of her pain in the upper abdomen as well as her age and risk factors we did proceed with EKG, which I reviewed, shows a sinus rhythm with a first-degree heart block, ST depression in the lateral leads V3 through V6, which is slightly worsened from priors, no STEMI criteria noted. We will obtain laboratory studies to include CBC, CMP, magnesium, troponin, BNP, INR, urinalysis. We will obtain CT of the chest abdomen and pelvis to evaluate for injury or acute medical abnormalities. -I reviewed the patient's laboratory studies, and note no leukocytosis but I do note a new anemia to 11 compared to laboratory studies obtained last winter. No thrombocytopenia, INR 1.0. Chemistry panel is noted for a mild hyponatremia, hypokalemia, and hypomagnesemia. Kidney function largely at patient's baseline with a BUN of 44 and a creatinine of 1.5. Bilirubin is modestly elevated to 1.1, with an associated elevation in the AST to 52 and alk phos of 237. Initial troponin is elevated just above the upper limits of normal to 57, BNP is elevated to 2500 without priors available for comparison. Lipase close to normal at 82. Given the elevated troponin, BNP, and history of heart failure I am concerned for heart failure exacerbation as the cause of her leg swelling at the very least. I did provide the patient with 4 baby aspirin and we will continue to trend troponins to complete her evaluation for active cardiac ischemia suggestive of ACS. - Repeat troponin is stable though still elevated above our upper limit of normal. Given the CHF exacerbation I feel that demand ischemia is the most likely etiology. The patient is not requiring of any oxygen which is quite reassuring. I did review the patient's CT scan of her chest, abdomen, and pelvis, and discussed the case with the radiologist. She has evidence of posterior right sided rib fractures, underlying the area of maximal ecchymosis. A small right sided pleural effusion is appreciated but no other significant pulmonary pathology. Her CT abdomen pelvis shows no acute pathology, nor traumatic injuries, though she does have a thickened endometrial stripe for her age which will require outpatient follow-up with ultrasound. Given the elevated troponin and fluid overload, I feel it reasonable to pursue admission for this patient. I reached out to the hospitalist service to discuss her case. They have graciously accepted her for admission to their service, she remained hemodynamically appropriate while under my care was transferred without incident. Ese Roque MD Medical Records Medical records reviewed: Yes I reviewed the patient's medical records. Lab Data Lab results reviewed: Yes I reviewed the patient's lab results. [facility] All Active Problems (Updated 03/21/25 @ 11:33 by Ese Roque MD) Increased endometrial stripe thickness (Acute) Right rib fracture (Acute) Hypokalemia (Acute) Elevated troponin (Acute) Acute exacerbation of CHF (congestive heart failure) (Acute) Edema of both feet (Acute) HTN (hypertension) (Chronic) Diastolic heart failure (Acute) Atrial fibrillation (Chronic) Abdominal pain (Acute) Anemia (Chronic) Epigastric abdominal pain (Acute) Pneumonia of both lower lobes (Acute) Medical History (Updated 03/21/25 @ 11:33 by Ese Roque MD) Atrial flutter Anal warts Inguinal hernia Low back pain Glaucoma Gout Osteoarthritis Osteoporosis Allergic rhinitis Seborrheic keratosis Rosacea Falls Dizziness Alcohol abuse Sleep disturbance Thyroid mass Hyponatremia Surgical History History of colon surgery Hx of cholecystectomy History of appendectomy Social History Smoking/Tobacco Use Status: Former Tobacco Use Smoking risk assessment performed?: Yes Alcohol Intake: current Alcohol Intake frequency: 0-2 drinks per day Alcohol type: wine Drug use: Never Substance use type: does not use Do you feel safe at home: Yes Do you feel safe in your relationship?: Yes PAWSS Have you Been Recently Intoxicated or Drunk Within the Last 30 days?: No Have you Ever Experienced Previous Episodes of Alcohol Withdrawal?: No Have you ever Experienced Withdrawal Seizures?: No Have you ever Experienced Delirium Tremens(DT)s?: No Have you ever undergone Alcohol Rehabilitation Treatment (i.e, inpt ot outpatient treatment programs)?: No Have you ever Experienced Blackouts?: No Have you ever Combined Alcohol with other Downers within the last 90 days?: No Have you ever Combined Alcohol with any other Substance of Abuse during the last 90 days?: No Positive Blood Alcohol level on Presentation? [PCS.BAL]: No Evidence of Increased Autonomic Activity (i.e. HR>120, tremor, sweating, agitation, nausea)?: No Result: 0
[2025-03-21 07:33] LABS: Abs Immature Grans 0.01 10^3/uL (0.0-0.06); HCT 31.3 % (36.0-46.0); HGB 11.0 g/dL (11.2-15.7); Immature Grans % 0.2 %; MCH 36.5 pg (27.0-33.0); MCHC 35.1 % (32.0-36.0); MCV 104 fL (80-95); MPV 9.1 fL (8.0-11.0); Platelet Count 203 10^3/uL (130-400); RBC 3.01 10^6/uL (3.93-5.22); RDW 13.2 % (11.7-14.6); RDW-SD 50.1 fL; WBC 6.33 10^3/uL (4.4-10.8)
[2025-03-21 07:45] LABS: INR 1.0 (0.9-1.1); Prothrombin Time 10.3 sec (9.1-11.1)
[2025-03-21] MEDS: Acetaminophen 500 MG TAB 1000 MG PO (07:51)
[2025-03-21] MEDS: MORPHine 10 MG/ML VIAL 2 MG IVP (07:52)
[2025-03-21] MEDS: Lidocaine 4% Cream 5 GM TUBE TP (07:52)
[2025-03-21 08:10] LABS: ALT 58 U/L (14-59); AST 52 U/L (15-37); Albumin 3.6 g/dL (3.4-5.0); Alkaline Phosphatase 237 U/L (46-116); Anion Gap 7.5 mmol/L (3-11); BUN 44 mg/dL (7-18); Bilirubin, Total 1.1 mg/dL (0.2-1.0); CO2 31.5 mmol/L (21.0-32.0); Calcium 10.1 mg/dL (8.5-10.1); Chloride 93 mmol/L (98-107); Estimated GFR 34.36 (mL/min/1.73m2); Glucose 118 mg/dL (74-106); Lipase 82 U/L (<78); Magnesium 1.7 mg/dL (1.8-2.4); NT-proBNP 2599 pg/mL (<300); Potassium 3.0 mmol/L (3.5-5.1); Sodium 132 mmol/L (136-145); Total Protein 6.4 g/dL (6.4-8.2)
[2025-03-21 08:13] LABS: Troponin I 57 ng/L (<or=51)
[2025-03-21] MEDS: Normal Saline - Diluent 50 ML VIAL IJ (08:22)
[2025-03-21] MEDS: Omnipaque 350 MG/ML 100 ML BTL 75 ML IJ (08:22)
--- NOTE | 2025-03-21 08:36 | DI.CT_ITS ---
Exam(s) CT CHEST/ABD/PEL W EXAM: CT CHEST/ABD/PEL W CLINICAL HISTORY: flank pain and bruising after fall, epigastric claudia. TECHNIQUE: Imaging Protocol: Axial computed tomography images with coronal and sagittal reformatted images were created and reviewed CONTRAST MATERIAL: Intravenous: Omnipaque 350 Contrast volume:75 Oral: None COMPARISON: CT CT CHEST PE ABD PELVIS W from 06/07/2021 FINDINGS: CHEST: LUNGS: Are mildly displaced fractures of the posterior aspects of the right 8th and 9th ribs.. There is mild x subjacent infiltrate and very small amount of right pleural fluid. There is no pneumothorax. There are no left rib fractures identified. No lung contusion or pleural effusion nor pneumothorax on the left side. Incidentally noted are multiple tiny sub cm nodules in both lung bah. MEDIASTINUM: No evidence of sternal fracture or mediastinal hematoma. Abnormally enlarged right thyroid lobe which contains nodules. No hilar nor mediastinal adenopathy. CARDIAC: There is cardiomegaly. No pericardial effusion. The diameter of the thoracic aorta is within normal limits. There is no evidence of dissection. OSSEOUS: No compression fractures of the vertebrae evident. Right rib fractures as above.. ABDOMEN: There is no ascites. No evidence of mesenteric nor bowel wall hematoma. LIVER: No evidence of liver laceration nor subcapsular hematoma.. Liver exhibits somewhat heterogeneous enhancement but without a distinct focal mass evident. GALLBLADDER/BILIARY: Gallbladder is surgically absent. CBD is not dilated. PANCREAS: No evidence of pancreatic mass nor dilatation of the pancreatic duct. SPLEEN: Intact. No laceration. Normal size. Contains a small benign cyst posteriorly which measures 1 cm. Splenic and portal veins are patent. ADRENALS: There are no significant adrenal masses. KIDNEYS: Benign cortical cyst in the lateral aspect of the left kidney again noted. Some perinephric streaking bilaterally is unchanged from 2020. There is no evidence of renal laceration nor subcapsular hematoma.. No solid renal mass. No calculi. No hydronephrosis. ABDOMINAL AORTA: Calcified but not enlarged. Iliac arteries also calcified but not enlarged. LYMPH NODES: There is no retroperitoneal nor paraaortic adenopathy. ABDOMINAL WALL: No evidence of significant anterior abdominal wall nor inguinal hernia. There is mild subcutaneous bruising posterior right side in the region of the fractured right 8th and 9th ribs. There is no radiopaque foreign body in the soft tissues. GI: No evidence of bowel wall hematoma. No evidence of bowel obstruction.No significant gastric distension. PELVIS: LYMPH NODES: There is no intrapelvic nor inguinal adenopathy. GI: Appendix is surgically absent.No evidence of sigmoid diverticulitis. URINARY BLADDER: No calculi nor masses evident REPRODUCTIVE: Calcified uterine fibroids are again noted. Largest is posteriorly located. No abnormal adnexal masses nor free fluid in the pelvis. Slight thickening of the endometrial lining noted for this age group. OSSEOUS: No evidence of hip nor pelvic fractures. No lumbar vertebral fractures. No sacral fractures. Sacroiliac bones unremarkable. There are posterior fusion rods at L4-L5 with bilateral intrapedicular screws at these levels. IMPRESSION: 1. The main acute trauma finding are mildly displaced fractures of the posterior aspects of the right 8th and 9th ribs with subjacent atelectasis and small amount of ipsilateral pleural fluid/probable blood. There is no pneumothorax. No left-sided fractures. No vertebral fractures. 2. Cardiomegaly. Thoracic aorta unremarkable. 3. No significant trauma sequelae in the abdomen and pelvis. 4. Calcified uterine fibroids. Thickened endometrium for this age group. Should be further studied with ultrasound to assess for possible endometrial malignancy. 5. Intact appearing fusion hardware in the lower lumbar spine L4-5 levels. Report called by myself to ER physician 03/21/2025 at 8:54 a.m. RADIATION DOSE DELIVERED: 778.46mGy.cm Total DLP DATA REPOSITORY: All CT scans at this facility are submitted to the National Radiology Data Registry (NRDR) Dose Index Registry (DIR) with the [employer] ([employer]). RADIATION OPTIMIZATION: All CT scans at this facility use at least one of these dose optimization techniques: automated exposure control; mA and/or kV adjustment per patient size (includes targeted exams where dose is matched to clinical indication); or iterative reconstruction.
[2025-03-21] MEDS: Potassium Chloride 20 MEQ TABCR 40 MEQ PO (08:51)
[2025-03-21] MEDS: Aspirin 81 MG CHEW 324 MG CH (08:52)
[2025-03-21] MEDS: MAGNESIUM SULFATE 2 GM/50 ML BAG IV_INF (08:53)
[2025-03-21] MEDS: POTASSIUM CHLORIDE 10 MEQ/100 ML BAG 100 MEQ IV_INF ×2 (08:53→10:01)
[2025-03-21 09:08] LABS: Troponin I 57 ng/L (<or=51)
[2025-03-21] MEDS: Furosemide 40 MG/4 ML VIAL 60 MG IVP (09:19)
[2025-03-21 10:13] LABS: Glucose Negative (Negative)
[2025-03-21 10:48] LABS: Troponin I 50 ng/L (<or=51)
[2025-03-21] MEDS: Normal Saline 500 ML IV (10:58)
--- NOTE | 2025-03-21 11:56 | W.PC.ACHO ---
Registration Status: REG ER Primary Language: Preferred Language: ED Information & Data Chief Complaint FlankPain 03/21/25 07:18 Triage Note PT has Hx of fall with R 03/21/25 06:45 side pain. PT stopped taking motrin recently. PT has increased R flank pain. Medical / Surgical History (Last Updated 11/03/23 @ 14:17 by Salina Bains RN) Atrial flutter Anal warts Inguinal hernia Low back pain Glaucoma Gout Osteoarthritis Osteoporosis Allergic rhinitis Seborrheic keratosis Rosacea Falls Dizziness Alcohol abuse Sleep disturbance Thyroid mass Hyponatremia (Last Reviewed 08/31/23 @ 13:52 by Chai Matute MD) History of colon surgery Hx of cholecystectomy History of appendectomy Most Recent Vital Signs Temperature 36.7 C 03/21/25 06:45 Temperature Source Oral 03/21/25 06:45 Pulse 57 L 03/21/25 09:50 Pulse 57 L 03/21/25 09:50 Respiratory Rate 17 03/21/25 09:50 Blood Pressure 148/44 H 03/21/25 09:47 Blood Pressure Mean 83 03/21/25 09:47 Pulse Oximetry 93 03/21/25 09:50 Oxygen Delivery Method Room Air 03/21/25 06:45 Oxygen Flow Rate 0 03/21/25 06:45 Pain Level 7 03/21/25 06:45 Allergies cefaclor Allergy (Intermediate, Verified 03/21/25 06:51) Hives lisinopril Allergy (Intermediate, Verified 03/21/25 06:51) Other (See Comment) niacin Allergy (Intermediate, Verified 03/21/25 06:51) Hives Dcfxags-JXL-EvH Reductase Inhibitor Allergy (Unknown, Verified 03/21/25 06:51) Other (See Comment) muscle aches adhesive tape Allergy (Verified 03/21/25 06:51) Skin Rash ciprofloxacin (From Cipro) Allergy (Verified 03/21/25 06:51) Hives levofloxacin (From Levaquin) Allergy (Verified 03/21/25 06:51) Hives moxifloxacin (From Vigamox) Allergy (Verified 03/21/25 06:51) Hives Sulfa (Sulfonamide Antibiotics) Allergy (Verified 03/21/25 06:51) Hives Active Medications Generic Name Dose Route Start Last Admin Trade Name Freq PRN Reason Stop Dose Admin Iohexol 75 ml 03/21/25 08:30 03/21/25 08:22 Omnipaque 350 Mg/Ml 100 Ml Btl IJ 04/20/25 23:59 75 ml DIRECTED GABO Administration Sodium Chloride 50 ml 03/21/25 08:30 03/21/25 08:22 Normal Saline - Diluent 50 Ml Vial IJ 50 ml .FOR DI USE GABO Administration IV IV Catheter Type [Right Saline Lock Antecubital] IV Catheter Gauge [Right 20 Antecubital] Diet Orders Category Date Time Status Heart Healthy Eating [DIET] Nutrition 03/21/25 Lunch Active Diagnostics 03/21/25 03/21/25 03/21/25 Range/Units 10:19 10:00 08:40 WBC (4.4-10.8) 10^3/uL RBC (3.93-5.22) 10^6/uL Hgb (11.2-15.7) g/dL Hct (36.0-46.0) % MCV (80-95) fL MCH (27.0-33.0) pg MCHC (32.0-36.0) % RDW (11.7-14.6) % Plt Count (130-400) 10^3/uL MPV (8.0-11.0) fL Immature Gran % % Neutrophils % % Lymphocytes % % Monocytes % % Eosinophils % % Basophils % % Nucleated RBC % (0.0-0.3) % Absolute Neutrophils (1.2-6.7) 10^3/uL Absolute Lymphocytes (1.2-3.4) 10^3/uL Absolute Monocytes (0.1-0.8) 10^3/uL Absolute Eosinophils (0.0-0.7) 10^3/uL Absolute Basophils (0.0-0.2) 10^3/uL PT (9.1-11.1) sec INR (0.9-1.1) Sodium (136-145) mmol/L Potassium (3.5-5.1) mmol/L Chloride (98-107) mmol/L Carbon Dioxide (21.0-32.0) mmol/L Anion Gap (3-11) mmol/L BUN (7-18) mg/dL Creatinine (0.55-1.02) mg/dL Est GFR (CKD-EPI 2020) (mL/min/1.73m2) Glucose (74-106) mg/dL Calcium (8.5-10.1) mg/dL Magnesium (1.8-2.4) mg/dL Total Bilirubin (0.2-1.0) mg/dL AST (15-37) U/L ALT (14-59) U/L Alkaline Phosphatase (46-116) U/L Troponin I 50 57 H* (<or=51) ng/L NT-Pro-B Natriuret Pep (<300) pg/mL Total Protein (6.4-8.2) g/dL Albumin (3.4-5.0) g/dL Lipase (<78) U/L Urine Color Yellow (Yellow) Urine Clarity Sl Cloudy (Clear) Urine pH 6.0 (5-8) Ur Specific Conner <= 1.005 (1.005-1.025) Urine Protein Negative (Neg-Trace) mg/dL Urine Ketones Negative (Negative) mg/dL Urine Blood Negative (Negative) Urine Nitrite Negative (Negative) Urine Bilirubin Negative (Negative) Urine Urobilinogen 0.2 (Up to 0.2) mg/dL Ur Leukocyte Esterase Negative (Negative) Urine Glucose Negative (Negative) mg/dL 03/21/25 Range/Units 07:24 WBC 6.33 (4.4-10.8) 10^3/uL RBC 3.01 L (3.93-5.22) 10^6/uL Hgb 11.0 L (11.2-15.7) g/dL Hct 31.3 L (36.0-46.0) % MCV 104 H (80-95) fL MCH 36.5 H (27.0-33.0) pg MCHC 35.1 (32.0-36.0) % RDW 13.2 (11.7-14.6) % Plt Count 203 (130-400) 10^3/uL MPV 9.1 (8.0-11.0) fL Immature Gran % 0.2 % Neutrophils % 67.0 % Lymphocytes % 16.9 % Monocytes % 9.3 % Eosinophils % 5.7 % Basophils % 0.9 % Nucleated RBC % 0.0 (0.0-0.3) % Absolute Neutrophils 4.24 (1.2-6.7) 10^3/uL Absolute Lymphocytes 1.07 L (1.2-3.4) 10^3/uL Absolute Monocytes 0.59 (0.1-0.8) 10^3/uL Absolute Eosinophils 0.36 (0.0-0.7) 10^3/uL Absolute Basophils 0.06 (0.0-0.2) 10^3/uL PT 10.3 (9.1-11.1) sec INR 1.0 (0.9-1.1) Sodium 132 L (136-145) mmol/L Potassium 3.0 L (3.5-5.1) mmol/L Chloride 93 L (98-107) mmol/L Carbon Dioxide 31.5 (21.0-32.0) mmol/L Anion Gap 7.5 (3-11) mmol/L BUN 44 H (7-18) mg/dL Creatinine 1.5 H (0.55-1.02) mg/dL Est GFR (CKD-EPI 2020) 34.36 (mL/min/1.73m2) Glucose 118 H (74-106) mg/dL Calcium 10.1 (8.5-10.1) mg/dL Magnesium 1.7 L (1.8-2.4) mg/dL Total Bilirubin 1.1 H (0.2-1.0) mg/dL AST 52 H (15-37) U/L ALT 58 (14-59) U/L Alkaline Phosphatase 237 H (46-116) U/L Troponin I 57 H* (<or=51) ng/L NT-Pro-B Natriuret Pep 2599 H (<300) pg/mL Total Protein 6.4 (6.4-8.2) g/dL Albumin 3.6 (3.4-5.0) g/dL Lipase 82 H (<78) U/L Urine Color (Yellow) Urine Clarity (Clear) Urine pH (5-8) Ur Specific Conner (1.005-1.025) Urine Protein (Neg-Trace) mg/dL Urine Ketones (Negative) mg/dL Urine Blood (Negative) Urine Nitrite (Negative) Urine Bilirubin (Negative) Urine Urobilinogen (Up to 0.2) mg/dL Ur Leukocyte Esterase (Negative) Urine Glucose (Negative) mg/dL Intake and Output - 24 Hour Total 03/21/25 06:39 thru 03/21/25 11:37 Intake Total 425 Output Total 800 Balance -375 Weight 68.81 kg Intake: IV 425 Output: Urine 800 Falls Risk Assessment History of Falls Previous History 03/21/25 06:49 Contributing Factors No Factors 03/21/25 06:49 Ambulatory Aids Uses ambulatory device 03/21/25 06:49 Tubes/Lines None 03/21/25 06:49 Gait Evaluation No gait disturbance 03/21/25 06:49 Cognition No cognitive impairment 03/21/25 06:49 Fall Total Score 30 03/21/25 06:49 Level of Risk Moderate Risk 03/21/25 06:49 v v v v v v v v v Sending and/or Receiving Nurses: Please use comment section below to note any information pertinent to the patient hand-off not included above. Information / Comments: Report received from:erwin
[2025-03-21] MEDS: Normal Saline Flush 10 ML SYR IVP ×2 (15:09→22:20)
[2025-03-21] MEDS: Ketorolac 15 MG/ML VIAL IVP (16:50)
--- NOTE | 2025-03-21 17:54 | NUR.NOTE ---
Nursing Note: Franci Arriaga:She wants her eye drops mrs garay at the bedside - the systane which is fine w me they are as needed. Nurse responds :sounds good. Nurse has left eye drops by computer in room 209, educated patient on requesting the nurse when wanting eye drops as she can't do it without staff knowing. Patient verbalized understanding
[2025-03-21] MEDS: MORPHine 2 MG/ML SYR IVP (18:19)
--- NOTE | 2025-03-21 19:21 | HPE_ITS ---
Date of service: 03/21/25 Time of Service: 11:30 Assessment and Plan Assessment and plan (1) Acute exacerbation of CHF (congestive heart failure): Status: Acute Assessment and plan: Patient presents with bilateral lower extremity edema, dyspnea on exertion, elevated BNP (2500), and chronic diastolic heart failure. Symptoms and exam findings suggest fluid overload. EKG shows ST depression without STEMI, consistent with chronic ischemia or strain pattern. Troponin mildly elevated, likely secondary to demand ischemia. Underlying condition contributing to volume overload * Optimize medical therapy as tolerated * Maintain euvolemia with diuretics * Monitor renal function closely * Continue diuretic therapy (torsemide), consider IV loop diuretic if oral dosing insufficient * Monitor fluid status, daily weights, intake/output * Monitor electrolytes closely (particularly K+, Mg2+) * Cardiology consult if signs of ischemia evolve * Serial troponins to trend * Low-sodium diet, fluid restriction as appropriate * Supplemental oxygen if needed (currently not required) (2) Atrial fibrillation: Status: Chronic Assessment and plan: No acute rate or rhythm issues today. Not anticoagulated due to fall risk. * Continue metoprolol for rate control * No change to anticoagulation strategy at this time * Reassess anticoagulation need outpatient or with cardiology input (3) Right rib fracture: Status: Acute Assessment and plan: Confirmed on CT ? posterior right-sided rib fractures, with overlying ecchymosis and associated pleural effusion. Painful but stable. * Pain control with Ketorolac - patient does not want to take tylenol and states it doesn't work. * Avoid NSAIDs due to CHF and renal function * Encourage incentive spirometry to reduce risk of atelectasis or pneumonia * Monitor for signs of worsening respiratory status * No evidence of pneumothorax or solid organ injury (4) Hypokalemia: Status: Acute Assessment and plan: Likely related to loop diuretic use and poor oral intake. * Replete potassium * Monitor BMP daily * Adjust diuretic dose if recurrent losses are excessive (5) Hypomagnesemia: Status: Acute Assessment and plan: Likely related to loop diuretic use and poor oral intake. * Replete magnesium * Monitor BMP daily * Adjust diuretic dose if recurrent losses are excessive (6) Anemia: Status: Chronic Assessment and plan: Hgb 11 compared to prior baseline. Likely multifactorial: chronic disease, nutritional, possible blood loss from recent trauma. No overt GI bleeding. * Monitor Hgb/Hct trend * Iron studies and ferritin to assess for iron deficiency * Consider fecal occult blood test if clinical suspicion increases * Continue to monitor for bleeding given extensive ecchymosis (7) Falls frequently: Status: Acute Assessment and plan: Attributed to poor footwear, potential deconditioning, and underlying medical comorbidities. * Fall risk precautions in hospital * Physical therapy evaluation during admission * Reinforce home safety and footwear choices (states she falls alot because she has swollen legs and big slippers) * Assess for orthostatic hypotension if clinically indicated (8) Lower extremity edema: Status: Acute Assessment and plan: Bilateral - R>L US pending Also obv Edema from CHF. History of Present Illness History of Present Illness Chief Complaint: Right flank pain and ecchymosis following multiple falls. Narrative: This is an 84-year-old female with a significant past medical history including atrial fibrillation (not anticoagulated), diastolic congestive heart failure, hypertension, anemia, and frequent falls, who presented to the emergency department via EMS for evaluation of right flank pain and bruising following a recent fall. The patient reports having had progressive bilateral lower extremity swelling over the past several weeks, despite the use of compression stockings, which she says only ?shifts the swelling up toward the knees.? She describes easy bruising, and a family member advised her to stop using ibuprofen due to this. On February 26, she experienced a fall, and more recently, she slid down stairs wearing loose slippers, after which she developed persistent right flank pain and extensive bruising in the area. She denies striking her head, experiencing loss of consciousness, or chest pain at the time of either fall. She describes the flank pain as ongoing and attributes it to inflaming her kidney. She also reports some abdominal discomfort, primarily in the epigastric and right upper quadrant, but denies dysuria, hematuria, or bowel changes. Her last bowel movement was the night before presentation and was normal. She denies dizziness or pre-syncope associated with her falls. She has a known hiatal hernia and poor appetite at baseline. She is not on anticoagulation for her atrial fibrillation and denies any new medications or significant changes to her home regimen, which includes metoprolol, torsemide, acetaminophen, and multiple supplements. Patient received potassium and magnesium in the ED for potassium of 3.0 and magnesium of 1.7. Patient is admitted to the medical floor for further testing and treatment. Patient is a full code. Review of Systems Narrative: Constitutional: No fevers or chills. Reports fatigue. Eyes: No vision changes or eye pain. ENT: No sore throat or hearing loss. Cardiovascular: Denies chest pain or palpitations. Respiratory: No shortness of breath or cough. Gastrointestinal: Reports mild epigastric discomfort. No nausea, vomiting, diarrhea, or constipation. Genitourinary: Denies dysuria or hematuria. Musculoskeletal: Reports right flank pain and bilateral leg swelling. Neurologic: Denies headache, weakness, numbness, or dizziness. Skin: Reports easy bruising. No rashes. Psychiatric: Mood appropriate. No suicidal or homicidal ideation. PFSH All Active Problems (Updated 03/21/25 @ 19:46 by Franci Arriaga NP) Lower extremity edema (Acute) Falls frequently (Acute) Hypomagnesemia (Acute) Increased endometrial stripe thickness (Acute) Right rib fracture (Acute) Hypokalemia (Acute) Elevated troponin (Acute) Acute exacerbation of CHF (congestive heart failure) (Acute) Edema of both feet (Acute) HTN (hypertension) (Chronic) Diastolic heart failure (Acute) Atrial fibrillation (Chronic) Abdominal pain (Acute) Anemia (Chronic) Epigastric abdominal pain (Acute) Pneumonia of both lower lobes (Acute) Medical History (Updated 03/21/25 @ 19:46 by Franci Arriaga NP) Atrial flutter Anal warts Inguinal hernia Low back pain Glaucoma Gout Osteoarthritis Osteoporosis Allergic rhinitis Seborrheic keratosis Rosacea Falls Dizziness Alcohol abuse Sleep disturbance Thyroid mass Hyponatremia Surgical History History of colon surgery Hx of cholecystectomy History of appendectomy Social History Smoking/Tobacco Use Status: Former Tobacco Use Smoking risk assessment performed?: Yes Alcohol Intake: current Alcohol Intake frequency: 0-2 drinks per day Alcohol type: wine Drug use: Never Substance use type: does not use Housing: house Do you feel safe at home: Yes Do you feel safe in your relationship?: Yes Meds Allergies and Home Medications Allergies Allergy/AdvReac Type Severity Reaction Status Date / Time cefaclor Allergy Intermediate Hives Verified 03/21/25 06:51 lisinopril Allergy Intermediate Other (See Verified 03/21/25 06:51 Comment) niacin Allergy Intermediate Hives Verified 03/21/25 06:51 [id number]-[id number] Reductase Allergy Unknown Other (See Verified 03/21/25 06:51 Inhibitor Comment) adhesive tape Allergy Skin Rash Verified 03/21/25 06:51 ciprofloxacin (From Cipro) Allergy Hives Verified 03/21/25 06:51 levofloxacin (From Levaquin) Allergy Hives Verified 03/21/25 06:51 moxifloxacin (From Vigamox) Allergy Hives Verified 03/21/25 06:51 Sulfa (Sulfonamide Allergy Hives Verified 03/21/25 06:51 Antibiotics) Home Medications ?Medication ?Instructions ?Recorded ?Confirmed ?Type Lactobacillus acidophilus 1 cap PO DAILY 01/26/2002/22 History (Acidophilus capsule) docusate sodium 100 mg tablet 100 mg PO BID PRN 03/21/25 History fluticasone propionate 50 1 spray intranasal BID 01/2503/21/25 History mcg/actuation nasal spray,suspension latanoprost 0.005 % eye drops 1 drp ophthalmic (eye) H S 01/26/20 03/21/25 History multivitamin 1 tab PO DAILY 01/26/2002/22 History trolamine salicylate-aloe vera 10 1 applic topical PRN PRN 01/26/20 03/21/25 History % topical cream (Aspercreme with Aloe) acetaminophen 325 mg capsule 650 mg PO .q8 PRN 2 03/21/25 History (Tylenol) allopurinol 100 mg tablet 100 mg PO DAILY 12/03/21 History biotin 1 mg capsule 1 mg PO DAILY 12/03/2103/21 History loratadine 10 mg tablet See Rx Instructions PO DAILY PRN 12/03/21 03/21/25 History metoprolol tartrate 25 mg tablet 50 mg PO BID 02/03/22 03/21/25 History nystatin 100,000 unit/gram topical 1 applic topical TI D #15 grams 08/04/22 03/21/25 Rx powder polyethylene glycol 3350 17 17 g PO DAILY 08/04/22 History gram/dose oral powder (Miralax) torsemide 20 mg tablet 40 mg PO DAILY 08/04/2202/22 History peg 400-propylene glycol (PF) 0.4 1 drp ophthalmic (ey e) DAILY PRN 03/21/25 03/21/25 History %-0.3 % eye drops in a dropperette (Systane (PF)) timolol maleate 0.5 % eye drops 1 drp ophthalmic (eye) BID 03/21/25 03/21/25 History Exam Narrative Exam Narrative: The patient is alert and oriented, in no apparent distress. HEENT: Pupils equal, round, reactive to light. No icterus. Scalp atraumatic. Neck: Supple, full range of motion. No midline tenderness. Lungs: Clear to auscultation bilaterally, no wheezes, rales, or rhonchi. Cardiovascular: Regular rate and rhythm. No murmurs. Strong distal pulses. Abdomen: Soft, non-distended. Mild tenderness to palpation in the epigastric and right upper quadrant. No rebound, guarding, or rigidity. Musculoskeletal: Moves all extremities. No spinal tenderness. Tenderness to right flank overlying area of ecchymosis. Stable pelvis. Bilateral lower extremity 1+ edema. Skin: Extensive bruising of right flank and lower legs. No rash or cyanosis. Neurologic: Alert, no focal deficits. Normal gait. Psychiatric: Cooperative, appropriate mood and affect. Results Labs 03/21/25 07:24 03/21/25 07:24 Labs: Laboratory Results - last 24 hr 03/21/25 03/21/25 03/21/25 07:24 08:40 10:00 WBC 6.33 RBC 3.01 L Hgb 11.0 L Hct 31.3 L MCV 104 H MCH 36.5 H MCHC 35.1 RDW 13.2 Plt Count 203 MPV 9.1 Immature Gran % 0.2 Neutrophils % 67.0 Lymphocytes % 16.9 Monocytes % 9.3 Eosinophils % 5.7 Basophils % 0.9 Nucleated RBC % 0.0 Absolute Neutrophils 4.24 Absolute Lymphocytes 1.07 L Absolute Monocytes 0.59 Absolute Eosinophils 0.36 Absolute Basophils 0.06 PT 10.3 INR 1.0 Sodium 132 L Potassium 3.0 L Chloride 93 L Carbon Dioxide 31.5 Anion Gap 7.5 BUN 44 H Creatinine 1.5 H Est GFR (CKD-EPI 2020) 34.36 Glucose 118 H Calcium 10.1 Magnesium 1.7 L Total Bilirubin 1.1 H AST 52 H ALT 58 Alkaline Phosphatase 237 H Troponin I 57 H* 57 H* NT-Pro-B Natriuret Pep 2599 H Total Protein 6.4 Albumin 3.6 Lipase 82 H Urine Color Yellow Urine Clarity Sl Cloudy Urine pH 6.0 Ur Specific [place] <= 1.005 Urine Protein Negative Urine Ketones Negative Urine Blood Negative Urine Nitrite Negative Urine Bilirubin Negative Urine Urobilinogen 0.2 Ur Leukocyte Esterase Negative Urine Glucose Negative 03/21/25 10:19 WBC RBC Hgb Hct MCV MCH MCHC RDW Plt Count MPV Immature Gran % Neutrophils % Lymphocytes % Monocytes % Eosinophils % Basophils % Nucleated RBC % Absolute Neutrophils Absolute Lymphocytes Absolute Monocytes Absolute Eosinophils Absolute Basophils PT INR Sodium Potassium Chloride Carbon Dioxide Anion Gap BUN Creatinine Est GFR (CKD-EPI 2020) Glucose Calcium Magnesium Total Bilirubin AST ALT Alkaline Phosphatase Troponin I 50 NT-Pro-B Natriuret Pep Total Protein Albumin Lipase Urine Color Urine Clarity Urine pH Ur Specific [place] Urine Protein Urine Ketones Urine Blood Urine Nitrite Urine Bilirubin Urine Urobilinogen Ur Leukocyte Esterase Urine Glucose Last Vital Signs Temp 36.7 C 03/21/25 15:23 Pulse 58 L 03/21/25 15:23 Resp 17 03/21/25 15:23 BP 148/64 H 03/21/25 15:23 Pulse Ox 99 03/21/25 15:23 PAWSS Have you Been Recently Intoxicated or Drunk Within the Last 30 days?: No Have you Ever Experienced Previous Episodes of Alcohol Withdrawal?: No Have you ever Experienced Withdrawal Seizures?: No Have you ever Experienced Delirium Tremens(DT)s?: No Have you ever undergone Alcohol Rehabilitation Treatment (i.e, inpt ot outpatient treatment programs)?: No Have you ever Experienced Blackouts?: No Have you ever Combined Alcohol with other Downers within the last 90 days?: No Have you ever Combined Alcohol with any other Substance of Abuse during the last 90 days?: No Positive Blood Alcohol level on Presentation? [PCS.BAL]: No Evidence of Increased Autonomic Activity (i.e. HR>120, tremor, sweating, agitation, nausea)?: No Result: 0 Time Spent Time spent with Patient: 55-74 minutes Time was spent: preparing to see the patient(eg.review tests), obtaining and/or reviewing separately otained hiistory, ordering medications,tests, procedures, referring, communicating with other health sub acute care nurse, indepentently interpreting results, counseling the patient and care coordination
[2025-03-21] MEDS: Metoprolol 50 MG TAB PO (20:58)
[2025-03-21] MEDS: Diclofenac 1% Gel 100 GM TUBE TP (21:01)
[2025-03-21] MEDS: Latanoprost 0.005% 2.5 ML BTL OP (21:57)
--- NOTE | 2025-03-22 | DI.US_ITS ---
Exam(s) US EXTREMITY VENOUS BI EXAM: US EXTREMITY VENOUS BI CLINICAL HISTORY: Calf pain L>R; SOB TECHNIQUE: Grayscale, color, and doppler imaging of the deep venous system of both lower extremities was performed. COMPARISON: No exams were available for comparison FINDINGS: There is no evidence of intraluminal thrombus and there is normal compression and augmentation demonstrated within the common femoral veins, femoral veins, and popliteal veins of both lower extremities. In the calves the interrogated veins also exhibit normal compression/ augmentation properties. The greater saphenous veins also appear patent as do the saphenofemoral junctions bilaterally.. IMPRESSION: 1. No ultrasound evidence of DVT in either lower extremity. DATA REPOSITORY:
[2025-03-22] MEDS: Docusate Sodium 100 MG CAP PO (03:17)
[2025-03-22 04:03] VITALS: PULSE 73
[2025-03-22 06:18] LABS: Abs Immature Grans 0.02 10^3/uL (0.0-0.06); HCT 31.9 % (36.0-46.0); HGB 11.0 g/dL (11.2-15.7); Immature Grans % 0.3 %; MCH 36.3 pg (27.0-33.0); MCHC 34.5 % (32.0-36.0); MCV 105 fL (80-95); MPV 9.6 fL (8.0-11.0); Platelet Count 201 10^3/uL (130-400); RBC 3.03 10^6/uL (3.93-5.22); RDW 13.4 % (11.7-14.6); RDW-SD 51.6 fL; WBC 7.11 10^3/uL (4.4-10.8)
[2025-03-22 06:48] LABS: Anion Gap 6.3 mmol/L (3-11); BUN 44 mg/dL (7-18); CO2 32.7 mmol/L (21.0-32.0); Calcium 9.6 mg/dL (8.5-10.1); Chloride 95 mmol/L (98-107); Estimated GFR 31.80 (mL/min/1.73m2); Glucose 132 mg/dL (74-106); Magnesium 2.0 mg/dL (1.8-2.4); Potassium 3.1 mmol/L (3.5-5.1); Sodium 134 mmol/L (136-145)
[2025-03-22 07:31] VITALS: BP 145/70; PULSE 65; RESP 16; TEMP 36.1; O2SAT 93
[2025-03-22] MEDS: MORPHine 2 MG/ML SYR IVP (08:02)
[2025-03-22] MEDS: Polyethylene Glycol 3350 17 GM PACKET PO (08:02)
[2025-03-22] MEDS: Normal Saline Flush 10 ML SYR IVP (08:03)
[2025-03-22] MEDS: Torsemide 20 MG TAB 60 MG PO (08:03)
[2025-03-22] MEDS: Multivitamin TAB 1 TAB PO (08:04)
[2025-03-22] MEDS: Allopurinol 100 MG TAB PO (08:04)
[2025-03-22] MEDS: Lactobacillus Acidophilus CAP 1 CAP PO (08:04)
[2025-03-22] MEDS: Metoprolol 50 MG TAB PO (08:04)
[2025-03-22] MEDS: Diclofenac 1% Gel 100 GM TUBE TP ×2 (08:05→12:07)
[2025-03-22] MEDS: Timolol 0.5% 5 ML BTL OP (08:13)
--- NOTE | 2025-03-22 09:08 | PDOC.CMIN ---
Date of service: 03/22/25 Time of Service: 09:08 Care Management Initial Assmt Initial Assessment Reason for Hospitalization: CHF Functional Status/Living Situation Patient Presentation: Bertha was sitting up in bed visiting with her son Jon when CM met with her. She was alert and oriented and easily engaged with CM. Bertha lives alone in an apartment in [place]. She is . Bertha has 2 children, a son Jon and a daughter Elida, both of whom are involved and supportive. She sometimes uses a walker for ambulatory assistance and does not receive any community services. Bertha was admitted with CHF. She was admitted as an inpatient however did not ever meet inpatient criteria. She was changed to Observation status by the provider this morning and appropriate Medicare forms were signed. One of Bertha's main concerns is the swelling in her legs and ankles for which she has received diuretics (Torsemide and Furosemide). A cardiac rehab liason referral has been requested to reinforce education regarding her CHF and the importance of diet and daily weights. Bertha would also like to change PCPs and establish closer to home; her current PCP is in [place]. CM will send a referral to [facility]. Town of Residence: [place] Resides with: Alone Significant Other/Family: Local Natural Supports: family Employment Status: Retired Instrumental Activities of Daily Living (ADLs): Independent Medications Medication Management: No Issues/Barriers identified Physical Functioning/Mobility Assistive Device: walker Advance Directives Advance Directives: Do you have an Advance Directive: Y 01/26/20, 13:20 AD On File at [facility]: Y 09/22/24, 16:20 Date Asked 09/22/24 09/22/24, 16:20 AD Date Reviewed 03/21/25 03/21/25, 08:02 COLST On File at [facility] COLST Date Scanned Code Status Resuscitation Status Full Code Portal Pt does not currently have a portal and education provided: Yes Insurance Coverage/Financial Issues Insurance: Medicare [facility] Medicare Supplement Care Team Visit Care Team Role Provider Type Oumar Valentine Primary Care Provider OSTEOPATHIC DOCTOR Leila Ibarra Other Providers OTHER Ese Roque MD Emergency Provider [facility] STAFF PHYSICIAN Brian Mark Admit Provider [facility] STAFF PHYSICIAN Attending Provider Discharge Potential Discharge Needs: PCP F/U Appt Anticipated Barriers to Discharge: None Identified Patient/Family Education Needs: Review discharge instructions, discuss Ask Me Three Transportation: Private vehicle Plan: Anticipate Bertha will be discharged home with no new services. She will follow up with her community providers and plan of care and transport via private vehicle with her son. CM will follow. Social Determinants of Health Screening Social Determinants of health last assessed in clinic: 03/22/25 Will the Patient Participate in the Screening?: Yes Do you worry about having a steady place to live?: no Problems where you live: no known problems In the past 12 months, have you had to go without electric, gas, oil or water in your home?: no 1. Within the past 12 months, we worried whether our food would run out before we got money to buy more.: Never true 2. Within the past 12 months, the food we bought just didn't last and we didn't have money to get more.: Never true Has lack of transportation kept you from medical appointments or from doing things needed for daily living?: no Has anyone in your life made you feel unsafe or unsupported?: no How hard is it for you to pay for the very basics like food, housing, medical care, and heating? Would you say it is:: Not hard at all Do you want help finding or keeping work or a job?: I do not need or want help If for any reason you need help with day-to-day activities such as bathing, preparing meals, shopping, managing finances, etc., do you get the help you need?: I don?t need any help How often do you feel lonely or isolated from those around you?: Never Do you speak a language other than [place] at home?: No PFSH All Active Problems (Updated 03/21/25 @ 19:46 by Franci Arriaga NP) Lower extremity edema (Acute) Falls frequently (Acute) Hypomagnesemia (Acute) Increased endometrial stripe thickness (Acute) Right rib fracture (Acute) Hypokalemia (Acute) Elevated troponin (Acute) Acute exacerbation of CHF (congestive heart failure) (Acute) Edema of both feet (Acute) HTN (hypertension) (Chronic) Diastolic heart failure (Acute) Atrial fibrillation (Chronic) Abdominal pain (Acute) Anemia (Chronic) Epigastric abdominal pain (Acute) Pneumonia of both lower lobes (Acute) Medical History (Updated 03/21/25 @ 19:46 by Franci Arriaga NP) Atrial flutter Anal warts Inguinal hernia Low back pain Glaucoma Gout Osteoarthritis Osteoporosis Allergic rhinitis Seborrheic keratosis Rosacea Falls Dizziness Alcohol abuse Sleep disturbance Thyroid mass Hyponatremia Surgical History History of colon surgery Hx of cholecystectomy History of appendectomy Social History Smoking/Tobacco Use Status: Former Tobacco Use Smoking risk assessment performed?: Yes Alcohol Intake: current Alcohol Intake frequency: 0-2 drinks per day Alcohol type: wine Drug use: Never Substance use type: does not use Housing: house Do you feel safe at home: Yes Do you feel safe in your relationship?: Yes
[2025-03-22] MEDS: Potassium Chloride 20 MEQ TABCR 40 MEQ PO (10:00)
--- NOTE | 2025-03-22 10:13 | PT.INIE ---
PT Notes Visit Reasons: Congestive Heart Failure Excacerbation Physical Therapy Inpatient Initial Evaluation Date: 03/22/2025 Referring Doctor: Franci Arriaga NP PT Orders: PT CONSULT: Fall Safety Assessment Precautions: Standard Patient Profile/Admitting Diagnosis: Pt is an 84 yo female presented to ED with right flank pain s/p fall. Xray revealed fractured rib. Pt also with BLE edema. Pt treated with diuretics and pain meds. Pt admitted to Med-Surg Unit for medical management. ordered US of LE for 03/22/2025 pending at the time of this Consult. PMHX: Lower extremity edema (Acute) Falls frequently (Acute) Hypomagnesemia (Acute) Increased endometrial stripe thickness (Acute) Right rib fracture (Acute) Hypokalemia (Acute) Elevated troponin (Acute) Acute exacerbation of CHF (congestive heart failure) (Acute) Edema of both feet (Acute) HTN (hypertension) (Chronic) Diastolic heart failure (Acute) Atrial fibrillation (Chronic) Abdominal pain (Acute) Anemia (Chronic) Epigastric abdominal pain (Acute) Pneumonia of both lower lobes (Acute) Medical History (Updated 03/21/25 @ 19:46 by Franci Arriaga NP) Atrial flutter Anal warts Inguinal hernia Low back pain Glaucoma Gout Osteoarthritis Osteoporosis Allergic rhinitis Seborrheic keratosis Rosacea Falls Dizziness Alcohol abuse Sleep disturbance Thyroid mass Hyponatremia Surgical History History of colon surgery Hx of cholecystectomy History of appendectomy Social History/Home Situation: Patient resides in an apartment with no stairs to enter. This is her primary residency however does spend time at her son's camp where she has steps to enter and a flight of stairs with rails to her bedroom. Equipment Owned/DME: Single-point cane Subjective:Patient reports she has been sleeping in the recliner since her fall 1 week ago. Patient reports she knows she is made bad decisions about the shoes she is wearing which she feels is the cause of her falls. Objective: [] General Observation: Patient presented ambulatory in room with single-point cane attempting to brush teeth at sink. 1+ edema noted bilateral lower extremities right slightly larger than left. Patient noted with discoloration to bilateral lower extremities above ankle to toes cyanotic appearing. Mental Status: Alert and oriented x 4, tangential, able to follow instructions however needs cues to complete task as she is easily distracted. Patient is talkative with some repetitive storytelling. Pain: 1?2/10 in ribs and back after medication ROM: [] BUE: WFL BLE: WFL Strength: [] BUE 5/5 Right Lower Extremity: Grossly 4/5 Left Lower Extremity: Hip 3 -/5 knee 3/5 ankle greater than equal to 3/5 Sensation: Intact Bed Mobility/Transfers: [] Supine to sit independent Sit to stand independent Stand to sit independent Bed to chair independent with or without assistive device Gait: Ambulates with single-point cane independently 300 feet without loss of balance reciprocal pattern intermittent use of cane for stability noted. Stairs: Patient declined to participate in stair assessment as she will be discharging to her primary residency which is an apartment with no stairs. Balance: [] Static Sitting: Normal Dynamic Sitting: Normal Static Standing: Normal Dynamic Standing: Good plus Special Tests: [] Mobility Limitations Standardized Measure [] [facility] 6 clicks Basic Mobility Inpatient Short Form: [] Raw Score: 24 CMS Score: 0% deficit Informed Consent/Education: Patient instructed in purpose of PT consult. Packet containing [] exercise protocol has been given to patient. Education and training on initial set of exercises that can be done at home have been completed with patient. Assessment: Bertha is an 84-year-old female presenting with bilateral lower extremity edema right greater than left. Patient demonstrates ability to ambulate with and without assistive device short distances within simulated apartment setting independently. Patient benefits from single-point cane for long distance ambulation which she is able to perform independently. Patient encouraged to wear more supportive footwear with a back to the shoe however patient resistive due to fluctuations in edema in bilateral lower extremities. She reports she often wears oversized men's shoes even when her legs and feet are not as swollen. Patient is aware if she makes poor decision regarding footwear. Patient would benefit from outpatient PT assessment for lymphedema management bilateral lower extremities. No further inpatient PT needs indicated at this time. Patient is assessed as a low complexity based on the following: History:84-year-old female with impairment level findings, functional limitations, and past medical history as indicated above Examination: Demonstrable impairment in strength, balance, and mobility level with underlying impairments and functional limitations as documented above Presentation: stable Decision Making: low Goals: N/A. PT evaluation and 1-2 treatment sessions only for functional mobility training using recommended AD and for HEP instruction. Plan of Care/Treatment Plan: N/A. PT evaluation and 1-2 treatment session only for functional mobility training using recommended AD and for HEP instruction. DISCHARGE RECOMMENDATIONS: Home with Outpatient PT for lymphedema management TREATMENT CODE/TIME: 72718, 27315 / [id number] Thank you for the opportunity to participate in the care of this patient. [facility]
[2025-03-22 11:16] VITALS: BP 134/46; PULSE 54; RESP 14; TEMP 36.8; O2SAT 97
--- NOTE | 2025-03-22 13:49 | PDOC.CMDIS ---
Date of service: 03/22/25 Time of Service: 13:49 LACE Index Scoring Tool Questions: Length of Stay (in days): 1 Was the patient admitted via the E.D.?: Yes Comorbidities: Congestive Heart Failure and Liver or Renal Disease E.D. Visits: 2 Answers: Total Score: 11 Risk of Readmission: High Risk Care Management Discharge Plan Reason for Hospitalization: CHF Discharge Plan: Bertha informed the provider that she plans to go home today. An echocardiogram was ordered but she is refusing to stay and have it done. She did agree to have an ultrasound of her legs. Bertha will be discharged home with no new services. She will follow up with her PCP and plan of care and transport with her son. Patient/Family Education Needs: Review of discharge instructions, limitations, follow up plan and discuss Ask Me Three.
--- NOTE | 2025-03-22 15:13 | DSE_ITS ---
Date of service: 03/22/25 Time of Service: 15:13 DS: Diagnosis Discharge Diagnosis (1) Acute exacerbation of CHF (congestive heart failure): Status: Acute (2) Atrial fibrillation: Status: Chronic (3) Right rib fracture: Status: Acute (4) Hypokalemia: Status: Acute (5) Hypomagnesemia: Status: Acute (6) Anemia: Status: Chronic (7) Falls frequently: Status: Acute (8) Lower extremity edema: Status: Acute Discharge Plan Disposition Patient Disposition: Home Condition: Fair Discharge Details Reason For Visit: Congestive Heart Failure Excacerbation Admit Date/Time: 03/21/25 11:04 Admit Provider: Brian Mark Attending Provider: Brian Mark Primary Care Provider: Oumar Valentine [facility] Course Hospital Course: 84 yo F with history of pAfib not anticoagulated, HFpEF presented with bilateral lower extremity edema, dyspnea on exertion, elevated BNP (2500), and symptoms and exam findings suggestive of fluid overload. EKG showed NSR with ST depression without STEMI, consistent with chronic ischemia or strain pattern. Troponin mildly elevated at 57 likely secondary to demand ischemia, trending down to 50. She did not have chest pain. Repeat echocardiogram was recommended but she declined to stay to have this done. She states she will discuss with her waistline joiner, but did agree when son was here to have done in April. Potassium and magnesium were low and were supplemented. These were prescribed a t discharge as well. She was about 2 liters negative after increasing her torsemide to 60mg daily, and this dose was recommended. Her CKD was at baseline. It was recommended she avoid oral NSAIDs. Duloxetine was suggested, she will consider. Her right leg was more swollen than her left. LE doppler found no evidence of DVT. She was in sinus rhythm. She again declined anticoagulation for pAfib stroke prevention. She had chest CT that showed posterior right rib fractures. She reports long history of frequent falls and had bruises on arms and back. Topical ketoralac was recommended for pain control. She had PT evaluation and outpatient PT recommended as well as avoiding oversized shoes. Recommendations for Follow Up Recommended tests to be ordered by follow up provider: CMP/Magnesium 1 week. Home Meds and New Rx's Prescriptions: New diclofenac sodium 3 % Gel 100 g topical QID Qty: 100 3RF potassium chloride [Klor-Con M20] 20 mEq tablet,ER particles/crystals 20 meq PO DAILY Qty: 30 0RF magnesium oxide 400 mg magnesium tablet 400 mg PO BID Qty: 60 1RF Continued polyethylene glycol 3350 [Miralax] 17 gram/dose powder 17 g PO DAILY allopurinol 100 mg tablet 100 mg PO DAILY biotin 1 mg capsule 1 mg PO DAILY loratadine 10 mg tablet See Rx Instructions PO DAILY PRN Rx Instructions: 1/2 - 1 tab PO daily PRN; As needed acetaminophen [Tylenol] 325 mg capsule 650 mg PO .q8 PRN fluticasone propionate 50 mcg/actuation Grassflat,Suspension 1 spray INTRANASAL BID latanoprost 0.005 % Drops 1 drp ophthalmic (eye) HS Acidophilus Capsule 1 cap PO DAILY multivitamin Tablet 1 tab PO DAILY docusate sodium 100 mg Tablet 100 mg PO BID PRN Aspercreme with Aloe 10 % Cream 1 applic TOPICAL PRN PRN metoprolol tartrate 25 mg tablet 50 mg PO BID Patient Comments: 50 mg in am, 75 mg pm nystatin 100,000 unit/gram powder 1 applic topical TID Qty: 15 0RF timolol maleate 0.5 % drops 1 drp ophthalmic (eye) BID Systane (PF) 0.4-0.3 % dropperette 1 drp ophthalmic (eye) DAILY PRN Changed torsemide 20 mg tablet 60 mg PO DAILY Qty: 0 0RF Patient Comments: 02/03/22 pt takes 20-40 mg daily RH Discharge Instructions Instructions: Heart Failure, Adult (DC) Additional Instructions: Your heart is under stress which causes you to retain fluid. You need an echocardiogram to check your heart function PAMELA. You should take 60mg of torsemide daily. You need potassium and magnesium supplement as well. You should monitor your weight and blood pressure daily. You should not take ibuprofen or other oral NSAID medicaitons. It is bad for your heart and kidneys and causes fluid retention. You can use topical diclofenac instead. You can discuss other options for pain with your PCP. Stand Alone Forms: Nursing Discharge Form Referrals: Grady Fleming DO [ NON-[facility] STAFF PHYSICIAN, Medicine] - 04/13/25 12:40 pm Activity:: Activity as Tolerated Equipment/Supplies:: No Equipment Needed Diet:: Low Sodium Discharge Orders Discharge Orders: Discharge Order (Routine); Ordered 03/22/25 Ordered By: Brian Mark Other Ambulatory Orders: US echocardiogram (Routine) Timeframe: 6 Weeks Facility: [facility] - Location: DIAGNOSTIC IMAGING Ordered By: Brian Mark DS: Summary Time Spent with Patient providing and/or coordinating discharge services: Greater than 30 minutes Status at Discharge Functional status at discharge: independent ambulation Overall status at discharge: patient is back to baseline Mental Status: mental status grossly normal Speech and Movement: speech and movement normal Mood: congruent mood Affect: normal affect Exam Narrative Exam Narrative: Gen: Awake and alert, in no apparent distress Lungs: Normal respiratory effort. Lung sounds clear and equal bilaterally without wheezes, rhonchi, rales CV: Appears well perfused, heart with regular rate and rhythm, strong distal pulses MSK: scattered dark bruises, including right flank with tenderness, but no deformit. EXT: george 1+ edema, right calf diamter 2cm greater than left 5cm below tibial tuberocity. Legs are not tender, no cords. Skin: Visualized skin without rashes, cyanosis. Extensive bruising as noted above. Neuro: Normal Gait, no obvious focal deficits or facial asymmetry. Speaks in full, clear sentences. Psych Mental Status: mental status grossly normal Speech and Movement: speech and movement normal Mood: congruent mood Affect: normal affect DS: Data Vitals/I&O Vitals and I&O: Vital Signs Temperature 36.8 C 03/22/25 11:16 Temperature Source Temporal Artery Scan 03/22/25 11:16 Pulse 54 L 03/22/25 11:16 Pulse Rhythm Irregular 03/21/25 12:22 Pulse 57 L 03/21/25 09:50 Respiratory Rate 14 03/22/25 11:16 Respiratory Effort Normal 03/21/25 20:23 Respiratory Depth Normal 03/21/25 12:22 Respiratory Pattern Normal 03/21/25 12:22 Blood Pressure 134/46 L 03/22/25 11:16 Blood Pressure Mean 75 03/22/25 11:16 Pulse Oximetry 97 03/22/25 11:16 Oxygen Delivery Method Room Air 03/22/25 11:16 Oxygen Flow Rate 0 03/22/25 11:16 Pain Level 10 03/22/25 08:02 Comment RN notified 03/22/25 11:16 Intake & Output 03/21/25 03/22/25 03/22/25 23:59 11:59 23:59 Intake Total 200 / 200 Output Total 1300 / 2100 200 / 400 200 / 400 Balance -1300 / -1675 0 / -200 -200 / -200 Weight 68.946 kg 71.6 kg Intake: Oral 200 / 200 Output: Urine 1300 / 2100 200 / 400 200 / 400 Other: Urine Color Yellow Yellow Urine Appearance Clear Clear Comment pt voids independently in toilet, no issues reported Stool Size Small Stool Characteristics Soft Brown Data Completed and Pending Labs on day of discharge: Labs from last 24 hours 03/22/25 05:16 WBC 7.11 RBC 3.03 L Hgb 11.0 L Hct 31.9 L MCV 105 H MCH 36.3 H MCHC 34.5 RDW 13.4 Plt Count 201 MPV 9.6 Immature Gran % 0.3 Neutrophils % 75.7 Lymphocytes % 11.4 Monocytes % 7.0 Eosinophils % 4.9 Basophils % 0.7 Nucleated RBC % 0.0 Absolute Neutrophils 5.38 Absolute Lymphocytes 0.81 L Absolute Monocytes 0.50 Absolute Eosinophils 0.35 Absolute Basophils 0.05 Sodium 134 L Potassium 3.1 L Chloride 95 L Carbon Dioxide 32.7 H Anion Gap 6.3 BUN 44 H Creatinine 1.6 H Est GFR (CKD-EPI 2020) 31.80 Glucose 132 H Calcium 9.6 Magnesium 2.0 PFSH All Active Problems (Updated 03/21/25 @ 19:46 by Franci Arriaga NP) Lower extremity edema (Acute) Falls frequently (Acute) Hypomagnesemia (Acute) Increased endometrial stripe thickness (Acute) Right rib fracture (Acute) Hypokalemia (Acute) Elevated troponin (Acute) Acute exacerbation of CHF (congestive heart failure) (Acute) Edema of both feet (Acute) Pneumonia of both lower lobes (Acute) Epigastric abdominal pain (Acute) Anemia (Chronic) Abdominal pain (Acute) HTN (hypertension) (Chronic) Diastolic heart failure (Acute) Atrial fibrillation (Chronic) Medical History (Updated 03/21/25 @ 19:46 by Franci Arriaga NP) Atrial flutter Anal warts Inguinal hernia Low back pain Glaucoma Gout Osteoarthritis Osteoporosis Allergic rhinitis Seborrheic keratosis Rosacea Falls Dizziness Alcohol abuse Sleep disturbance Thyroid mass Hyponatremia Surgical History History of colon surgery Hx of cholecystectomy History of appendectomy Social History Smoking/Tobacco Use Status: Former Tobacco Use Smoking risk assessment performed?: Yes Alcohol Intake: current Alcohol Intake frequency: 0-2 drinks per day Alcohol type: wine Drug use: Never Substance use type: does not use Housing: house Do you feel safe at home: Yes Do you feel safe in your relationship?: Yes Time Spent with Patient Time Spent with Patient: 45-69 minutes Time was spent: preparing to see the patient(eg.review tests), obtaining and/or reviewing separately otained hiistory, ordering medications,tests, procedures, referring, communicating with other health healthcare science specialist, indepentently interpreting results, counseling the patient and care coordination
== END 2025-03-22 16:22 | disposition home or self-care (01) ==
LOC: ER 11:33 → MS 13:12
PROVIDERS: Nurse Practitioner Family; Admitting Provider Family Medicine; Emergency Provider Emergency Medicine; PCP Neuromusculoskeletal Medicine & OMM; Responsible Provider Family Medicine; Visit Provider Family Medicine
DX: I11.0 Hypertensive heart disease with heart failure (principal); I50.33 Acute on chronic diastolic (congestive) heart failure; I48.20 Chronic atrial fibrillation, unspecified; R74.8 Abnormal levels of other serum enzymes; S22.31XA Fracture of one rib, right side, initial encounter for closed fracture; E83.42 Hypomagnesemia; E87.6 Hypokalemia; D64.9 Anemia, unspecified; R29.6 Repeated falls; K44.9 Diaphragmatic hernia without obstruction or gangrene; M81.0 Age-related osteoporosis without current pathological fracture; F10.10 Alcohol abuse, uncomplicated; Z79.899 Other long term (current) drug therapy; S30.1XXA Contusion of abdominal wall, initial encounter; W19.XXXA Unspecified fall, initial encounter
CPT/HCPCS: 00123; 36415; 74177; 80048; 80053; 83690; 93005; 96361; 96365; 96366; 96375; 96376; 97161; 97530; 99285; J1650; 71260; 81003; 83735; 83880; 84484; 85025; 85610; 93010; 93970; 99222; 99239; G0378; J1885; J1938; J2270; J3475; J3480; J3490

== ENCOUNTER 2025-03-26 05:31 | Observation (INO) | payer MEDICARE, SELFPAY ==
[2025-03-26] VITALS (34 sets, daily range): BP systolic 141–183; BP diastolic 54–85; PULSE 54–75; RESP 14–23; TEMP 36.3–37.3; O2SAT 94–99
--- NOTE | 2025-03-26 05:15 | RT.EKG_ITS ---
APPROVED REPORT Exam: Resting ECG Reason for Exam: Sternal pain Patient Location: E HR:69 bpm ECG Measurements Heart Rate 69 AXIS ND 380 P 55 QRSd 94 QRS 86 QT 440 T 54 QTc 447 Conclusion Sinus rhythm...normal P axis, V-rate 60- 99 Ventricular premature complex...V complex w/ short R-R interval Prolonged ND interval...ND >220, V-rate 50- 90 Probable anterior infarct, old...Q >40mS, V2-V5 Borderline ST depression, diffuse leads...ST <-0.07mV, ant/lat/inf Physician: No stemi, unchanged from prior ekg on 03/21/25
--- NOTE | 2025-03-26 05:34 | W.ED.GENAD ---
Discharge Plan Disposition Patient Disposition: Admit to [facility] Discharge Details Clinical Impression: CHF (congestive heart failure) Primary Care Provider: Oumar Valentine ED Provider: Jean Claude Putnam Home Meds and New Rx's Prescriptions: No Action polyethylene glycol 3350 [Miralax] 17 gram/dose powder 17 g PO DAILY allopurinol 100 mg tablet 100 mg PO DAILY biotin 1 mg capsule 1 mg PO DAILY loratadine 10 mg tablet See Rx Instructions PO DAILY PRN Rx Instructions: 1/2 - 1 tab PO daily PRN; As needed acetaminophen [Tylenol] 325 mg capsule 650 mg PO .q8 PRN fluticasone propionate 50 mcg/actuation [place],Suspension 1 spray INTRANASAL BID latanoprost 0.005 % Drops 1 drp ophthalmic (eye) HS Acidophilus Capsule 1 cap PO DAILY multivitamin Tablet 1 tab PO DAILY docusate sodium 100 mg Tablet 100 mg PO BID PRN Aspercreme with Aloe 10 % Cream 1 applic TOPICAL PRN PRN metoprolol tartrate 25 mg tablet 50 mg PO BID Patient Comments: 50 mg in am, 75 mg pm nystatin 100,000 unit/gram powder 1 applic topical TID Qty: 15 0RF timolol maleate 0.5 % drops 1 drp ophthalmic (eye) BID Systane (PF) 0.4-0.3 % dropperette 1 drp ophthalmic (eye) DAILY PRN diclofenac sodium 3 % Gel 100 g topical QID Qty: 100 3RF potassium chloride [Klor-Con M20] 20 mEq tablet,ER particles/crystals 20 meq PO DAILY Qty: 30 0RF magnesium oxide 400 mg magnesium tablet 400 mg PO BID Qty: 60 1RF torsemide 20 mg tablet 60 mg PO DAILY Qty: 0 0RF Patient Comments: 02/03/22 pt takes 20-40 mg daily RH HPI General Date/Time Provider Initiated Documentation: 03/26/25 05:33. HPI Narrative: This is a pleasant 84-year-old female with a past medical history of hypertension, diastolic heart failure with a preserved ejection fraction, paroxysmal A-fib not on anticoagulants, daily diuretic, cholecystectomy, appendectomy, who was recently admitted on 03/21/2025, she had evidence of a congestive heart failure exacerbation at that time. It was recommended that she stay for an echocardiogram, which she declined. She went home and stated that she would follow-up with her resource director. She was discharged on 03/22/2025. Patient returns tonight with complaint of shortness of breath, difficulty sleeping, and mild continued right sided chest pain. She states that she misunderstood the doctor when she decided to leave, but it is not exactly clear what she misunderstood. She states that she would like to get her echocardiogram now. Chest pain is present on the right chest and right sternum. This is unchanged from before. When she was here on her last visit CT scan of the chest did show evidence of fractured ribs on the right for the 8th and 9th rib. She admits to very mild shortness of breath with exertion. She denies any fever or chills. She does admit to mild increase swelling in her lower extremities. No other complaints at this time. Related Data Home Medications ?Medication ?Instructions ?Recorded ?Confirmed Lactobacillus acidophilus 1 cap PO DAILY 01/26/20 03/26/25 (Acidophilus capsule) docusate sodium 100 mg tablet 100 mg PO BID PRN 01/26/20 03/26/25 fluticasone propionate 50 1 spray intranasal BID 01/26/20 03/26/25 mcg/actuation nasal spray,suspension latanoprost 0.005 % eye drops 1 drp ophthalmic (eye) HS 01/26/20 03/26/25 multivitamin 1 tab PO DAILY 01/26/20 03/26/25 trolamine salicylate-aloe vera 10 1 applic topical PRN PRN 01/26/20 03/26/25 % topical cream (Aspercreme with Aloe) acetaminophen 325 mg capsule 650 mg PO .q8 PRN 12/03/21 03/26/25 (Tylenol) allopurinol 100 mg tablet 100 mg PO DAILY 12/03/21 03/26/25 biotin 1 mg capsule 1 mg PO DAILY 12/03/21 03/26/25 loratadine 10 mg tablet See Rx Instructions PO DAILY PRN 12/03/21 03/26/25 metoprolol tartrate 25 mg tablet 50 mg PO BID 02/03/22 03/26/25 nystatin 100,000 unit/gram topical 1 applic topical TID #15 grams 08/04/22 03/26/25 powder polyethylene glycol 3350 17 17 g PO DAILY 08/04/22 03/26/25 gram/dose oral powder (Miralax) peg 400-propylene glycol (PF) 0.4 1 drp ophthalmic (eye) DAILY PRN 03/21/25 03/26/25 %-0.3 % eye drops in a dropperette (Systane (PF)) timolol maleate 0.5 % eye drops 1 drp ophthalmic (eye) BID 03/21/25 03/26/25 diclofenac sodium 3 % topical gel 100 g topical QID #100 grams 03/22/25 03/26/25 magnesium oxide 400 mg PO BID #60 tabs 03/22/25 03/26/25 potassium chloride 20 mEq 20 meq PO DAILY #30 tabs 03/22/25 03/26/25 tablet,extended release(part/cryst) (Klor-Con M) torsemide 20 mg tablet 60 mg (3 x 20 mg) PO DAILY #0 tabs 03/22/25 03/26/25 Previous Rx's ?Medication ?Instructions ?Recorded nystatin 100,000 unit/gram topical 1 applic topical TID #15 grams 08/04/22 powder diclofenac sodium 3 % topical gel 100 g topical QID #100 grams 03/22/25 magnesium oxide 400 mg PO BID #60 tabs 03/22/25 potassium chloride 20 mEq 20 meq PO DAILY #30 tabs 03/22/25 tablet,extended release(part/cryst) (Klor-Con M) torsemide 20 mg tablet 60 mg (3 x 20 mg) PO DAILY #0 tabs 03/22/25 Allergies Allergy/AdvReac Type Severity Reaction Status Date / Time cefaclor Allergy Intermediate Hives Verified 03/26/25 05:59 lisinopril Allergy Intermediate Other (See Verified 03/26/25 05:59 Comment) niacin Allergy Intermediate Hives Verified 03/26/25 05:59 [id number] Reductase Allergy Unknown Other (See Verified 03/26/25 05:59 Inhibitor Comment) adhesive tape Allergy Skin Rash Verified 03/26/25 05:59 ciprofloxacin (From Cipro) Allergy Hives Verified 03/26/25 05:59 levofloxacin (From Levaquin) Allergy Hives Verified 03/26/25 05:59 moxifloxacin (From Vigamox) Allergy Hives Verified 03/26/25 05:59 Sulfa (Sulfonamide Allergy Hives Verified 03/26/25 05:59 Antibiotics) General CHRISSY: 3 Exam Narrative Exam Narrative: 1.Const: Well-nourished, Well-developed, appearing stated age 2.Eyes: PERRL, no conjunctival injection, and symmetrical lids. 3.ENT: Atraumatic external nose and ears. Moist MM. Neck: Symmetric, trachea midline, No thyromegaly. 4.CVS: +S1/S2, Peripheral pulses 2+ and equal in all extremities. Brisk capillary refill in all extremities. 5.RESP: Unlabored respiratory effort. Clear to auscultation bilaterally. No wheezes rales or rhonchi 6.GI: Soft, Nontender/Nondistended, No hepatosplenomegaly. No guarding or rebound. 7.MSK: Normocephalic/Atraumatic, Extremities w/o deformity or ttp No cyanosis or clubbing, Normal movement of all extremities. Mild pitting edema bilaterally 8.Skin: Warm, Dry. No rashes or lesions. 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 Sensation grossly intact, no focal neurologic deficits. 10.Psych: (AAO) x3. Appropriate mood and affect Medical Decision Making This is a pleasant 84-year-old female with a past medical history of hypertension, diastolic heart failure with a preserved ejection fraction, paroxysmal A-fib not on anticoagulants, daily diuretic, cholecystectomy, appendectomy, who was recently admitted on 03/21/2025, she had evidence of a congestive heart failure exacerbation at that time. It was recommended that she stay for an echocardiogram, which she declined. She went home and stated that she would follow-up with her resource director. She was discharged on 03/22/2025. Patient returns tonight with complaint of shortness of breath, difficulty sleeping, and mild continued right sided chest pain. She states that she misunderstood the doctor when she decided to leave, but it is not exactly clear what she misunderstood. She states that she would like to get her echocardiogram now. Chest pain is present on the right chest and right sternum. This is unchanged from before. When she was here on her last visit CT scan of the chest did show evidence of fractured ribs on the right for the 8th and 9th rib. She admits to very mild shortness of breath with exertion. She denies any fever or chills. She does admit to mild increase swelling in her lower extremities. No other complaints at this time. Exam demonstrates well-appearing female, mild pitting edema in lower extremities. Vital signs stable. EKG shows minimal ST segment abnormality, but does not meet STEMI criteria. It appears notably unchanged from EKG on 03/21/2025. Will evaluate for evidence of CHF, worsening cardiac strain. Symptoms may certainly be secondary to discomfort related to rib fractures. CT imaging 3 days ago showed no evidence of pneumothorax or pneumonia. Will monitor closely and reassess. We will perform a bedside limited echo. We will give 40 of Lasix with her evidence of fluid overload and +2 to +3 pitting edema. 6:21 AM Limited bedside echo shows a reduced ejection fraction, around 30 to 40%. No prior echo for comparison in our records. Laboratory workup shows no white count or bandemia. Electrolytes relatively stable, creatinine slightly higher than normal at 2.0 with a GFR of 24. Patient's proBNP is 4157, nearly double her previous value few days ago. Troponin is 55. Symptoms concerning for mild cardiac strain, worsening ejection fraction and mild CHF. With the patient's history, I do feel that she would benefit from admission for previously recommended echo, especially with what appears to be a worsening ejection fraction. 7:43 AM Troponin demonstrates slight improvement. Patient remains hemodynamically stable. Will reach out to the hospital for admission for serial troponins, monitoring of kidney function, and planned echo. Discussed the case with Dr. Kaur, he agrees with the assessment and plan. I have extensively reviewed the treatment plan with the patient. I have addressed all patient concerns at this time. I have also discussed the plan with the admitting physician and they agree with the current assessment and plan and have agreed to assume responsibility for the patient. All parties demonstrate verbal understanding and agreement with our assessment and plan at this time. The documentation in this chart was dictated using [email or web address] dictation software. Please excuse any dictation errors. PFSH All Active Problems (Updated 03/26/25 @ 07:46 by Jean Claude Putnam DO) CHF (congestive heart failure) (Chronic) Lower extremity edema (Acute) Falls frequently (Acute) Hypomagnesemia (Acute) Increased endometrial stripe thickness (Acute) Right rib fracture (Acute) Hypokalemia (Acute) Elevated troponin (Acute) Edema of both feet (Acute) HTN (hypertension) (Chronic) Diastolic heart failure (Acute) Abdominal pain (Acute) Anemia (Chronic) Epigastric abdominal pain (Acute) Pneumonia of both lower lobes (Acute) Medical History (Updated 03/26/25 @ 07:46 by Jean Claude Putnam DO) Atrial fibrillation Atrial flutter Anal warts Inguinal hernia Low back pain Glaucoma Gout Osteoarthritis Osteoporosis Allergic rhinitis Seborrheic keratosis Rosacea Falls Dizziness Alcohol abuse Sleep disturbance Thyroid mass Hyponatremia Surgical History History of colon surgery Hx of cholecystectomy History of appendectomy Social History Smoking/Tobacco Use Status: Former Tobacco Use Smoking risk assessment performed?: Yes Alcohol Intake: current Alcohol Intake frequency: 0-2 drinks per day Alcohol type: wine Drug use: Never Substance use type: does not use Housing: house Do you feel safe at home: Yes Do you feel safe in your relationship?: Yes POCUS Exam (ED) Limited Cardiac Exam DATE OF EXAM: 03/26/25 TIME OF EXAM: 05:49 PROVIDER THAT PERFORMED THE STUDY: Jean Claude Putnam IS THIS A REPEAT EXAM DURING THIS ENCOUNTER: no REASON FOR EXAM: Dyspnea VISUALIZED STRUCTURES: Left atrium, Left ventricle, Right atrium, Right ventricle, Mitral valve and Interventricular septum VIEW OBTAINED: Parasternal long-axis PERTINENT FINDINGS/IMPRESSION: LV dysfunction :moderate Exam complete
[2025-03-26 05:50] LABS: Abs Immature Grans 0.02 10^3/uL (0.0-0.06); HCT 32.8 % (36.0-46.0); HGB 11.0 g/dL (11.2-15.7); Immature Grans % 0.2 %; MCH 35.6 pg (27.0-33.0); MCHC 33.5 % (32.0-36.0); MCV 106 fL (80-95); MPV 9.4 fL (8.0-11.0); Platelet Count 236 10^3/uL (130-400); RBC 3.09 10^6/uL (3.93-5.22); RDW 13.3 % (11.7-14.6); RDW-SD 52.4 fL; WBC 8.45 10^3/uL (4.4-10.8)
[2025-03-26] MEDS: Furosemide 40 MG/4 ML VIAL IVP (05:53)
[2025-03-26 05:58] LABS: Macrocytosis 2+
--- NOTE | 2025-03-26 06:03 | DI.RAD_ITS ---
Exam(s) XR PORTABLE CHEST AP EXAM: XR PORTABLE CHEST AP CLINICAL HISTORY: shortness of breath. TECHNIQUE: 2D digital imaging was performed. COMPARISON: No exams were available for comparison FINDINGS: Single AP portable view. There is cardiomegaly. The mediastinum is not widened. No infiltrates nor obvious pleural effusions. Mild pulmonary venous hypertension but no airspace pulmonary edema. IMPRESSION: Cardiomegaly. No airspace pulmonary edema. DATA REPOSITORY: RADIATION DOSE DELIVERED:
[2025-03-26 06:05] LABS: INR 1.0 (0.9-1.1); PTT Activated 25.9 sec (20.6-30.2); Prothrombin Time 10.4 sec (9.1-11.1)
[2025-03-26 06:13] LABS: ALT 56 U/L (14-59); AST 36 U/L (15-37); Albumin 3.5 g/dL (3.4-5.0); Alkaline Phosphatase 326 U/L (46-116); Anion Gap 8.1 mmol/L (3-11); BUN 48 mg/dL (7-18); Bilirubin, Total 0.9 mg/dL (0.2-1.0); CO2 30.9 mmol/L (21.0-32.0); Calcium 9.7 mg/dL (8.5-10.1); Chloride 93 mmol/L (98-107); Estimated GFR 24.33 (mL/min/1.73m2); Glucose 112 mg/dL (74-106); NT-proBNP 4157 pg/mL (<300); Potassium 4.8 mmol/L (3.5-5.1); Sodium 132 mmol/L (136-145); Total Protein 6.6 g/dL (6.4-8.2)
[2025-03-26 06:15] LABS: Troponin I 55 ng/L (<or=51)
[2025-03-26] MEDS: Aspirin 325 MG TAB PO (06:27)
--- NOTE | 2025-03-26 07:12 | DI.VRAD_ITS ---
PROCEDURE INFORMATION: Exam: XR Chest Exam date and time: 03/26/2025 6:04 AM Age: 84 years old Clinical indication: Other: Shortness of breath TECHNIQUE: Imaging protocol: Radiologic exam of the chest. Views: 1 view. COMPARISON: CT CHEST/ABD/PEL W 03/21/2025 8:14 AM FINDINGS: Lungs: Low lung volumes, with vascular crowding. No focal infiltrates. Prominence of the central pulmonary vasculature. Pleural spaces: Unremarkable. No pleural effusion. No pneumothorax. Heart/Mediastinum: [id number] cardiomegaly. Bones/joints: Unremarkable. IMPRESSION: 1. Pulmonary vascular congestion. 2. [id number] cardiomegaly. Dictated and Authenticated by: Laura Brown MD. Orderin Jersey Silverio MD
[2025-03-26 07:25] LABS: Troponin I 48 ng/L (<or=51)
--- NOTE | 2025-03-26 08:50 | W.PC.ACHO ---
Registration Status: REG ER Primary Language: Preferred Language: ED Information & Data Chief Complaint Chest/Rib 03/26/25 05:41 Chief Complaint Chest/Rib 03/26/25 05:30 Triage Note Pt BIBEMS d/t R sided chest/ 03/26/25 05:30 sternal pain. Pt was seen and admitted here 03/21 and left AMA 03/22 before an echocardiogram that day d/t concern for heart failure. Returns d/t non-resolving pain, BLE edema ongoing and 'mis-understanding the test they wanted' Medical / Surgical History (Last Updated 11/03/23 @ 14:17 by Salina Bains RN) Atrial fibrillation Atrial flutter Anal warts Inguinal hernia Low back pain Glaucoma Gout Osteoarthritis Osteoporosis Allergic rhinitis Seborrheic keratosis Rosacea Falls Dizziness Alcohol abuse Sleep disturbance Thyroid mass Hyponatremia (Last Reviewed 08/31/23 @ 13:52 by Chai Matute MD) History of colon surgery Hx of cholecystectomy History of appendectomy Most Recent Vital Signs Temperature 36.5 C 03/26/25 05:30 Temperature Source Temporal Artery Scan 03/26/25 05:30 Pulse 58 L 03/26/25 07:30 Pulse 61 03/26/25 07:30 Respiratory Rate 16 03/26/25 07:30 Respiratory Effort Normal, Non-Labored 03/26/25 05:41 Respiratory Depth Normal 03/26/25 05:41 Respiratory Pattern Normal 03/26/25 05:41 Blood Pressure 164/65 H 03/26/25 07:26 Blood Pressure Mean 96 03/26/25 07:26 Blood Pressure Position Sitting 03/26/25 05:30 Pulse Oximetry 95 03/26/25 07:30 Oxygen Delivery Method Room Air 03/26/25 05:30 Oxygen Flow Rate 0 03/26/25 05:30 Pain Level 3 03/26/25 05:41 Allergies cefaclor Allergy (Intermediate, Verified 03/26/25 05:59) Hives lisinopril Allergy (Intermediate, Verified 03/26/25 05:59) Other (See Comment) niacin Allergy (Intermediate, Verified 03/26/25 05:59) Hives Iwnijgp-[id number]-EjO Reductase Inhibitor Allergy (Unknown, Verified 03/26/25 05:59) Other (See Comment) muscle aches adhesive tape Allergy (Verified 03/26/25 05:59) Skin Rash ciprofloxacin (From Cipro) Allergy (Verified 03/26/25 05:59) Hives levofloxacin (From Levaquin) Allergy (Verified 03/26/25 05:59) Hives moxifloxacin (From Vigamox) Allergy (Verified 03/26/25 05:59) Hives Sulfa (Sulfonamide Antibiotics) Allergy (Verified 03/26/25 05:59) Hives Precautions Isolation Standard precaution 03/26/25 05:41 IV IV Catheter Type [Right Saline Lock Antecubital] IV Catheter Gauge [Right 20 Antecubital] Diet Orders Category Date Time Status Regular/Normal [DIET] Nutrition 03/26/25 Lunch Active Diagnostics 03/26/25 03/26/25 03/26/25 Range/Units 08:33 06:58 05:42 WBC 8.45 (4.4-10.8) 10^3/uL RBC 3.09 L (3.93-5.22) 10^6/uL Hgb 11.0 L (11.2-15.7) g/dL Hct 32.8 L (36.0-46.0) % MCV 106 H (80-95) fL MCH 35.6 H (27.0-33.0) pg MCHC 33.5 (32.0-36.0) % RDW 13.3 (11.7-14.6) % Plt Count 236 (130-400) 10^3/uL MPV 9.4 (8.0-11.0) fL Immature Gran % 0.2 % Neutrophils % 78.0 % Lymphocytes % 9.9 % Monocytes % 7.6 % Eosinophils % 3.2 % Basophils % 1.1 % Nucleated RBC % 0.0 (0.0-0.3) % Absolute Neutrophils 6.59 (1.2-6.7) 10^3/uL Absolute Lymphocytes 0.84 L (1.2-3.4) 10^3/uL Absolute Monocytes 0.64 (0.1-0.8) 10^3/uL Absolute Eosinophils 0.27 (0.0-0.7) 10^3/uL Absolute Basophils 0.09 (0.0-0.2) 10^3/uL Macrocytosis 2+ PT 10.4 (9.1-11.1) sec INR 1.0 (0.9-1.1) APTT 25.9 (20.6-30.2) sec Sodium 132 L (136-145) mmol/L Potassium 4.8 (3.5-5.1) mmol/L Chloride 93 L (98-107) mmol/L Carbon Dioxide 30.9 (21.0-32.0) mmol/L Anion Gap 8.1 (3-11) mmol/L BUN 48 H (7-18) mg/dL Creatinine 2.0 H (0.55-1.02) mg/dL Est GFR (CKD-EPI 2020) 24.33 (mL/min/1.73m2) Glucose 112 H (74-106) mg/dL Calcium 9.7 (8.5-10.1) mg/dL Total Bilirubin 0.9 (0.2-1.0) mg/dL AST 36 (15-37) U/L ALT 56 (14-59) U/L Alkaline Phosphatase 326 H (46-116) U/L Troponin I Pending 48 55 H* (<or=51) ng/L NT-Pro-B Natriuret Pep 4157 H (<300) pg/mL Total Protein 6.6 (6.4-8.2) g/dL Albumin 3.5 (3.4-5.0) g/dL Intake and Output - 24 Hour Total 03/26/25 05:23 thru 03/26/25 08:00 Output Total 775 Balance -775 Weight 72.3 kg Output: Urine 775 Other: # Voids 1 Falls Risk Assessment History of Falls Previous History 03/26/25 05:41 Contributing Factors Unstable,Impairments 03/26/25 05:41 Ambulatory Aids Independent 03/26/25 05:41 Gait Evaluation W/any additional score 03/26/25 05:41 Cognition No cognitive impairment 03/26/25 05:41 Fall Total Score 41 03/26/25 05:41 Level of Risk Moderate Risk 03/26/25 05:41 v v v v v v v v v Sending and/or Receiving Nurses: Please use comment section below to note any information pertinent to the patient hand-off not included above. Information / Comments: Report received, all questions anwered. Report received from: Received report from MODE Farr @ 08.
[2025-03-26 09:11] LABS: Troponin I 45 ng/L (<or=51)
--- NOTE | 2025-03-26 09:19 | INITIAL_ITS ---
Date of service: 03/26/25 Time of Service: 09:19 Care Management Initial Assmt Initial Assessment Reason for Hospitalization: CHF Functional Status/Living Situation Patient Presentation: Bertha lives alone in an apartment in [place]. She is and has 2 children, a son Jon and a daughter Elida, both of whom are involved and supportive. She sometimes uses a walker for ambulatory assistance and does not receive any community services. Bertha was admitted with CHF. She was just discharged on after being treated for CHF at that time as well. Bertha informed that she felt really bad that she left before her Echocardiogram on Thursday. She stated she thought it was a stress test that was ordered and she was too tired to be able to complete the test. Bertha's major complaint today was the pain from her fractured ribs and a sore bottom. Her vital signs are stable and she has no oxygen requirement. Bertha was given both IV Lasix and PO torsemide this morning and has diuresed well, with over 2L of urinary output today. She hopes to have the Echocardiogram tomorrow and be discharged later in the day. Town of Residence: [place] Resides with: Alone Significant Other/Family: Local Natural Supports: son and daughter Employment Status: Retired Instrumental Activities of Daily Living (ADLs): Independent Medications Medication Management: No Issues/Barriers identified Physical Functioning/Mobility Assistive Device: walker Advance Directives Advance Directives: Do you have an Advance Directive: Y , 13:20 AD On File at [facility]: Y 09/22/24, 16:20 Date Asked 09/22/24 09/22/24, 16:20 AD Date Reviewed 03/26/25 Today, 08:27 COLST On File at [facility] COLST Date Scanned Code Status Resuscitation Status Full Code Portal Pt does not currently have a portal and education provided: Yes Insurance Coverage/Financial Issues Insurance: Medicare [facility] supplement Care Team Visit Care Team Role Provider Type Oumar Valentine Primary Care Provider OSTEOPATHIC DOCTOR Jean Claude Putnam DO Emergency Provider [facility] STAFF PHYSICIAN Oumar Kaur MD Admit Provider [facility] STAFF PHYSICIAN Attending Provider Discharge Potential Discharge Needs: PCP F/U Appt and Other (Cardiology) Anticipated Barriers to Discharge: None Identified Patient/Family Education Needs: Review discharge instructions, discuss Ask Me Three Transportation: Private vehicle Plan: Anticipate Bertha will be discharged home with no new services when medically stable. She will follow up with her community providers and plan of care and transport via private vehicle with her son. CM will follow. Social Determinants of Health Screening Social Determinants of health last assessed in clinic: 03/26/25 Will the Patient Participate in the Screening?: Declined to provide Do you worry about having a steady place to live?: no Problems where you live: no known problems In the past 12 months, have you had to go without electric, gas, oil or water in your home?: no Has lack of transportation kept you from medical appointments or from doing things needed for daily living?: no Has anyone in your life made you feel unsafe or unsupported?: no How hard is it for you to pay for the very basics like food, housing, medical care, and heating? Would you say it is:: Not hard at all Do you want help finding or keeping work or a job?: I do not need or want help If for any reason you need help with day-to-day activities such as bathing, preparing meals, shopping, managing finances, etc., do you get the help you need?: I don?t need any help How often do you feel lonely or isolated from those around you?: Never Do you speak a language other than French at home?: No Does the patient want assistance with any of the above?: No Comments: already asked in ER [facility] All Active Problems (Updated 03/26/25 @ 12:09 by Marialuisa Sands NP) [id number] kidney injury (Acute) CHF (congestive heart failure) (Chronic) Acute exacerbation of CHF (congestive heart failure) (Acute) Lower extremity edema (Acute) Falls frequently (Acute) Hypomagnesemia (Acute) Increased endometrial stripe thickness (Acute) Right rib fracture (Acute) Hypokalemia (Acute) Elevated troponin (Acute) Edema of both feet (Acute) HTN (hypertension) (Chronic) Diastolic heart failure (Acute) Abdominal pain (Acute) Anemia (Chronic) Epigastric abdominal pain (Acute) Pneumonia of both lower lobes (Acute) Medical History (Updated 03/26/25 @ 12:09 by Marialuisa Sands NP) Atrial fibrillation Atrial flutter Anal warts Inguinal hernia Low back pain Glaucoma Gout Osteoarthritis Osteoporosis Allergic rhinitis Seborrheic keratosis Rosacea Falls Dizziness Alcohol abuse Sleep disturbance Thyroid mass Hyponatremia Surgical History History of colon surgery Hx of cholecystectomy History of appendectomy Social History Smoking/Tobacco Use Status: Former Tobacco Use Smoking risk assessment performed?: Yes Alcohol Intake: current Alcohol Intake frequency: 0-2 drinks per day Alcohol type: wine Drug use: Never Substance use type: does not use Housing: apartment Do you feel safe at home: Yes Do you feel safe in your relationship?: Yes
[2025-03-26] MEDS: Polyethylene Glycol 3350 17 GM PACKET PO (10:02)
[2025-03-26] MEDS: Normal Saline Flush 10 ML SYR IVP ×2 (10:02→20:17)
[2025-03-26] MEDS: Diclofenac 1% Gel 100 GM TUBE TP ×3 (10:02→20:13)
[2025-03-26] MEDS: Timolol 0.5% 5 ML BTL OP ×2 (10:02→20:21)
[2025-03-26] MEDS: Multivitamin TAB 1 TAB PO (10:03)
[2025-03-26] MEDS: Magnesium Oxide 400 MG TAB PO ×2 (10:03→20:10)
[2025-03-26] MEDS: Potassium Chloride 20 MEQ TABCR PO (10:03)
[2025-03-26] MEDS: Lactobacillus Acidophilus CAP 1 CAP PO (10:03)
[2025-03-26] MEDS: Metoprolol 50 MG TAB PO (10:03)
--- NOTE | 2025-03-26 11:40 | PHA.REVIEW2 ---
Pharmacy Admission Review Admission Clinical Review Admission Pharmacy Review: cefaclor Allergy (Intermediate, Verified 03/26/25 05:59) Hives lisinopril Allergy (Intermediate, Verified 03/26/25 05:59) Other (See Comment) niacin Allergy (Intermediate, Verified 03/26/25 05:59) Hives Ewawavy-EXB-MsP Reductase Inhibitor Allergy (Unknown, Verified 03/26/25 05:59) Other (See Comment) adhesive tape Allergy (Verified 03/26/25 05:59) Skin Rash ciprofloxacin (From Cipro) Allergy (Verified 03/26/25 05:59) Hives levofloxacin (From Levaquin) Allergy (Verified 03/26/25 05:59) Hives moxifloxacin (From Vigamox) Allergy (Verified 03/26/25 05:59) Hives Sulfa (Sulfonamide Antibiotics) Allergy (Verified 03/26/25 05:59) Hives Resuscitation Status Full Code Height 5 ft 1 in Weight 72.3 kg Pharmacy Admission Review Renal Dosing Renal Dosing: BUN 48 mg/dL (7-18) H 03/26/25 05:42 Creatinine 2.0 mg/dL (0.55-1.02) H 03/26/25 05:42 Medications needing adjustments: Intervened (CrCl 19.38 mL/min) List of meds needing interventions: Changed enoxaparin from 40mg daily to 30mg daily. Reached out to provider regarding allopurinol, per provider will hold for now (canceled order). Recommended dose for loratadine for patients with CrCl < 30 is 10mg every other day, per home med list patient takes 5-10mg daily as needed. Changed order to 5mg PO daily as needed. Anticoagulation Anticoagulation: Hgb 11.0 g/dL (11.2-15.7) L 03/26/25 05:42 Hct 32.8 % (36.0-46.0) L 03/26/25 05:42 Plt Count 236 10^3/uL (130-400) 03/26/25 05:42 INR 1.0 (0.9-1.1) 03/26/25 05:42 Creatinine 2.0 mg/dL (0.55-1.02) H 03/26/25 05:42 DVT Prophylaxis: Intervened (renally adjusted) Medications: Enoxaparin (30mg daily) Relevant Labs Relevant Labs: Sodium 132 mmol/L (136-145) L 03/26/25 05:42 Potassium 4.8 mmol/L (3.5-5.1) 03/26/25 05:42 Chloride 93 mmol/L (98-107) L 03/26/25 05:42 Electrolytes, C-Reactive P, ESR: Reviewed Cardiac Review Cardiac Review: Troponin I 45 ng/L (<or=51) 03/26/25 08:42 NT-Pro-B Natriuret Pep 4157 pg/mL (<300) H 03/26/25 05:42 Blood Pressure 161/54 1115 Blood Pressure 164/64 0906 Blood Pressure 159/59 0831 Blood Pressure 175/66 0802 Blood Pressure 164/65 0726 Blood Pressure 166/65 0631 BP, HR, EF%: Reviewed (HR 59) List meds needing interventions: Has orders for metoprolol 50mg DAILY and 75mg QPM and torsemide 60mg daily QTc Review QTc: Reviewed (447 from 03/26/25) IV to PO Switch IV Medications: Reviewed Home Meds Home Med List reviewed: Intervened Relevent Home Meds Not ordered & why?: allopurinol (on hold per provider - kidney function) Changed 3 orders to patients own orders and informed nurse that these would have to be brought in if patient wants to use them while here (Systane eye drops, Biotin capsule and aspercreme Current Meds Current Medication Order Review: Intervened Comments: Changed IV ED access order
--- NOTE | 2025-03-26 11:57 | W.PM.HP.N ---
Date of service: 03/26/25 Time of Service: 11:57 Assessment and Plan Assessment and plan (1) Acute exacerbation of CHF (congestive heart failure): Status: Acute Assessment and plan: Referred to observation Continue IV diuresis Monitor kidney function and electrolytes closely Daily weights and strict I&O's Echocardiogram when available (2) Atrial fibrillation: Assessment and plan: Rate controlled on metoprolol Not on anticoagulation as she has declined (3) Right rib fracture: Status: Acute Assessment and plan: Pain has been managed Encourage pulmonary toileting, I-S Can have aqua k pad (4) Anemia: Status: Chronic Assessment and plan: Chronic and at baseline Will add iron studies (5) Falls frequently: Status: Acute Assessment and plan: Declines physical therapy consultation Fall precaution Gait assisted with a cane (6) Elevated troponin: Status: Acute Assessment and plan: In the setting of decompensated heart failure No chest pain or acute ischemic EKG changes Is trending downward No further surveillance indicated (7) Qyggz-ry-dejhplk kidney injury: Status: Acute Assessment and plan: In the setting of decompensated heart failure Continue diuresis Avoid nephrotoxic drugs and renally dose meds as needed discussed with DR Kaur History of Present Illness Narrative: This is an 84-year-old female patient past medical history significant for diastolic heart failure preserved ejection fraction recently admitted for decompensated heart failure discharged to home with plan for outpatient echocardiogram. She reports that since being home she is having ongoing symptoms of increased dyspnea especially when laying flat. She continues to have peripheral edema which she states is not worsened. She has had no fever no chills no chest pain. Her workup in the emergency department was concerning for decompensated heart failure. She did have no oxygen requirements. She received 40 mg of IV Lasix and began diuresing well. Hospitalist services was asked to observe her while diuresing. Review of Systems All systems reviewed & are unremarkable except as noted in HPI and below PFSH All Active Problems (Updated 03/26/25 @ 12:09 by Marialusia Sands NP) Glonh-fp-qbbrabn kidney injury (Acute) CHF (congestive heart failure) (Chronic) Acute exacerbation of CHF (congestive heart failure) (Acute) Lower extremity edema (Acute) Falls frequently (Acute) Hypomagnesemia (Acute) Increased endometrial stripe thickness (Acute) Right rib fracture (Acute) Hypokalemia (Acute) Elevated troponin (Acute) Edema of both feet (Acute) HTN (hypertension) (Chronic) Diastolic heart failure (Acute) Abdominal pain (Acute) Anemia (Chronic) Epigastric abdominal pain (Acute) Pneumonia of both lower lobes (Acute) Medical History (Updated 03/26/25 @ 12:09 by Marialuisa Sands NP) Atrial fibrillation Atrial flutter Anal warts Inguinal hernia Low back pain Glaucoma Gout Osteoarthritis Osteoporosis Allergic rhinitis Seborrheic keratosis Rosacea Falls Dizziness Alcohol abuse Sleep disturbance Thyroid mass Hyponatremia Surgical History History of colon surgery Hx of cholecystectomy History of appendectomy Social History Smoking/Tobacco Use Status: Former Tobacco Use Smoking risk assessment performed?: Yes Alcohol Intake: current Alcohol Intake frequency: 0-2 drinks per day Alcohol type: wine Drug use: Never Substance use type: does not use Housing: apartment Do you feel safe at home: Yes Do you feel safe in your relationship?: Yes Meds Allergies and Home Medications Allergies Allergy/AdvReac Type Severity Reaction Status Date / Time cefaclor Allergy Intermediate Hives Verified 03/26/25 05:59 lisinopril Allergy Intermediate Other (See Verified 03/26/25 05:59 Comment) niacin Allergy Intermediate Hives Verified 03/26/25 05:59 Inheocv-CQC-CjI Reductase Allergy Unknown Other (See Verified 03/26/25 05:59 Inhibitor Comment) adhesive tape Allergy Skin Rash Verified 03/26/25 05:59 ciprofloxacin (From Cipro) Allergy Hives Verified 03/26/25 05:59 levofloxacin (From Levaquin) Allergy Hives Verified 03/26/25 05:59 moxifloxacin (From Vigamox) Allergy Hives Verified 03/26/25 05:59 Sulfa (Sulfonamide Allergy Hives Verified 03/26/25 05:59 Antibiotics) Home Medications ?Medication ?Instructions ?Recorded ?Confirmed ?Type Lactobacillus acidophilus 1 cap PO DAILY 01/26/20 03/26/25 History (Acidophilus capsule) docusate sodium 100 mg tablet 100 mg PO BID PRN 01/26/20 03/26/25 History fluticasone propionate 50 1 spray intranasal BID 01/26/20 03/26/25 History mcg/actuation nasal spray,suspension latanoprost 0.005 % eye drops 1 drp ophthalmic (eye) HS 01/26/20 03/26/25 History multivitamin 1 tab PO DAILY 01/26/20 03/26/25 History trolamine salicylate-aloe vera 10 1 applic topical PRN PRN 01/26/20 03/26/25 History % topical cream (Aspercreme with Aloe) acetaminophen 325 mg capsule 650 mg PO .q8 PRN 12/03/21 03/26/25 History (Tylenol) allopurinol 100 mg tablet 100 mg PO DAILY 12/03/21 03/26/25 History biotin 1 mg capsule 1 mg PO DAILY 12/03/21 03/26/25 History loratadine 10 mg tablet See Rx Instructions PO DAILY PRN 12/03/21 03/26/25 History metoprolol tartrate 25 mg tablet 50 mg PO BID 02/03/22 03/26/25 History nystatin 100,000 unit/gram topical 1 applic topical TID #15 grams 08/04/22 03/26/25 Rx powder polyethylene glycol 3350 17 17 g PO DAILY 08/04/22 03/26/25 History gram/dose oral powder (Miralax) peg 400-propylene glycol (PF) 0.4 1 drp ophthalmic (eye) DAILY PRN 03/21/25 03/26/25 History %-0.3 % eye drops in a dropperette (Systane (PF)) timolol maleate 0.5 % eye drops 1 drp ophthalmic (eye) BID 03/21/25 03/26/25 History diclofenac sodium 3 % topical gel 100 g topical QID #100 grams 03/22/25 03/26/25 Rx magnesium oxide 400 mg PO BID #60 tabs 03/22/25 03/26/25 Rx potassium chloride 20 mEq 20 meq PO DAILY #30 tabs 03/22/25 03/26/25 Rx tablet,extended release(part/cryst) (Klor-Con M) torsemide 20 mg tablet 60 mg (3 x 20 mg) PO DAILY #0 tabs 03/22/25 03/26/25 Rx Exam Narrative Exam Narrative: Elderly female of stated age no acute distress head is atraumatic eyes nonicteric noninjected oral mucosas moist neck is supple neck full range of motion no JVD cardiovascular irregular rate rhythm rate in the 60s. Respirations are even and unlabored abdomen is soft nontender bilateral lower extremities with +2 pitting edema states this is her baseline. She does have discoloration to the right lower extremity which she states is chronic most consistent with old bruising. Denies pain bilateral upper extremities with old bruising which is healing from her recent fall. Neurologic she is awake alert oriented no focal deficits psychiatric appropriate mood and affect Results Labs 03/26/25 05:42 03/26/25 05:42 Labs: Laboratory Results - last 24 hr 03/26/25 03/26/25 03/26/25 05:42 06:58 08:42 WBC 8.45 RBC 3.09 L Hgb 11.0 L Hct 32.8 L MCV 106 H MCH 35.6 H MCHC 33.5 RDW 13.3 Plt Count 236 MPV 9.4 Immature Gran % 0.2 Neutrophils % 78.0 Lymphocytes % 9.9 Monocytes % 7.6 Eosinophils % 3.2 Basophils % 1.1 Nucleated RBC % 0.0 Absolute Neutrophils 6.59 Absolute Lymphocytes 0.84 L Absolute Monocytes 0.64 Absolute Eosinophils 0.27 Absolute Basophils 0.09 Macrocytosis 2+ PT 10.4 INR 1.0 APTT 25.9 Sodium 132 L Potassium 4.8 Chloride 93 L Carbon Dioxide 30.9 Anion Gap 8.1 BUN 48 H Creatinine 2.0 H Est GFR (CKD-EPI 2020) 24.33 Glucose 112 H Calcium 9.7 Total Bilirubin 0.9 AST 36 ALT 56 Alkaline Phosphatase 326 H Troponin I 55 H* 48 45 NT-Pro-B Natriuret Pep 4157 H Total Protein 6.6 Albumin 3.5 Last Vital Signs Temp 36.5 C 03/26/25 11:15 Pulse 59 L 03/26/25 11:15 Resp 16 03/26/25 11:15 BP 161/54 H 03/26/25 11:15 Pulse Ox 98 03/26/25 11:15 PAWSS Have you Been Recently Intoxicated or Drunk Within the Last 30 days?: No Have you Ever Experienced Previous Episodes of Alcohol Withdrawal?: No Have you ever Experienced Withdrawal Seizures?: No Have you ever Experienced Delirium Tremens(DT)s?: No Have you ever undergone Alcohol Rehabilitation Treatment (i.e, inpt ot outpatient treatment programs)?: No Have you ever Experienced Blackouts?: No Have you ever Combined Alcohol with other Downers within the last 90 days?: No Have you ever Combined Alcohol with any other Substance of Abuse during the last 90 days?: No Positive Blood Alcohol level on Presentation? [PCS.BAL]: No Evidence of Increased Autonomic Activity (i.e. HR>120, tremor, sweating, agitation, nausea)?: No Result: 0 Time Spent Time spent with Patient: 55-74 minutes Time was spent: preparing to see the patient(eg.review tests), obtaining and/or reviewing separately [facility] hiistory, ordering medications,tests, procedures, indepentently interpreting results and counseling the patient
[2025-03-26 12:16] LABS: Lab Add On Test DONE
[2025-03-26 12:33] LABS: Iron 62 ug/dL (50-170); Total Iron Binding Capacity 298 ug/dL (250-450); Transferrin Sat 21 % (15-50)
[2025-03-26 12:59] LABS: Ferritin 321 ng/mL (8-252); Vitamin B12 1008 pg/mL (193-986)
[2025-03-26 13:00] LABS: Folate > 20.0 ng/mL (8.6-20.0)
[2025-03-26] MEDS: Refresh PLUS Eye Drops 0.4ml 1 EACH OU (15:10)
[2025-03-26] MEDS: Metoprolol 25 MG TAB 75 MG PO (20:10)
[2025-03-26] MEDS: Latanoprost 0.005% 2.5 ML BTL OP (20:13)
[2025-03-27 03:03] VITALS: BP 159/71; PULSE 63; RESP 16; TEMP 36.9; O2SAT 95
[2025-03-27 07:08] VITALS: BP 162/58; PULSE 62; RESP 17; TEMP 36.4; O2SAT 95
[2025-03-27] MEDS: Metoprolol 50 MG TAB PO (07:46)
[2025-03-27] MEDS: Lactobacillus Acidophilus CAP 1 CAP PO (07:46)
[2025-03-27] MEDS: Potassium Chloride 20 MEQ TABCR PO (07:47)
[2025-03-27] MEDS: Torsemide 20 MG TAB 60 MG PO (07:48)
[2025-03-27] MEDS: Magnesium Oxide 400 MG TAB PO (07:48)
[2025-03-27] MEDS: Multivitamin TAB 1 TAB PO (07:49)
[2025-03-27] MEDS: Timolol 0.5% 5 ML BTL OP (07:50)
[2025-03-27] MEDS: Enoxaparin 30 MG/0.3 ML SYR SC (07:51)
[2025-03-27] MEDS: Polyethylene Glycol 3350 17 GM PACKET PO (07:51)
[2025-03-27] MEDS: Normal Saline Flush 10 ML SYR IVP (07:53)
[2025-03-27] MEDS: Diclofenac 1% Gel 100 GM TUBE TP (07:54)
--- NOTE | 2025-03-27 10:30 | DI.US_ITS ---
APPROVED REPORT EXAM: Comprehensive 2D, Doppler, and color-flow Echocardiogram Patient Location: In-Patient [employer] Engineer: Marie Shelton RDCS (AE) Indications: Decompensated heart failure Other Information Study Quality: Adequate Conclusion Normal left ventricular wall thickness and chamber size. EF is 55%. There are no segmental wall motion abnormalities Normal right ventricular size and function Both atria are severely enlarged Trileaflet aortic valve with mild regurgitation There is severe mitral regurgitation Moderate to severe tricuspid regurgitation. Estimated right ventricular systolic pressure is 60 mmHg Wall motion Left Ventricle The left ventricle is normal size. The left ventricular systolic function is normal. The left ventricular ejection fraction is within the normal range. There is normal left ventricular wall thickness. There is normal LV segmental wall motion. There is no ventricular septal defect visualized. LVEF is 55%. Right Ventricle The right ventricle is normal size. The right ventricular systolic function is normal. Atria Left atrium is severely dilated. Right atrium is severely dilated. The interatrial septum is intact with no evidence for an atrial septal defect. Aortic Valve The aortic valve is normal in structure. Aortic valve is trileaflet. There is no aortic valvular stenosis. Mild aortic regurgitation. Mitral Valve Mild mitral annular calcification. No evidence of mitral valve stenosis. severe mitral regurgitation Tricuspid Valve The tricuspid valve is normal in structure. There is no tricuspid valve stenosis. Moderate to severe tricuspid regurgitation. The RVSP is 60.0_ mmHg. Pulmonic Valve The pulmonary valve is normal in structure. There is no pulmonic valvular stenosis. Mild pulmonic regurgitation. Great Vessels The aortic root is normal in size. The ascending aorta is normal in size. Aortic arch is not well visualized. IVC is normal in size and collapses >50% with inspiration. Pericardium There is no pericardial effusion. 2D Dimensions IVSD d PLAX 0.95 cm F: 0.6-1.0 Ao Root d 2.49 cm F: 2.7 - 3.3 LVPW d PLAX 0.92 cm F: 0.6 - 1.0 Ao Asc Diam d 3.26 cm F: 2.3 - 3.1 LVID d PLAX 5.01 cm F: 3.8 - 5.2 LVDs 3.40 cm F: 2.2 - 3.5 LV EF Teichholz 60.3 % FS 32.33 % LV EDV (Teich) 118.9 mL LV ESV (Teich) 47.2 mL Auto EF LV EDV A4C 97.3 mL LV EDV A2C 96.9 mL LV EDV BP 97.1 mL LV ESV A4C 44.1 mL LV ESV A2C 43.4 mL LV ESV BP 44.0 mL LVEF(%) A4C 54.7 % LVEF(%) A2C 55.2 % LVEF(%) BP 54.6 % LV SV A4C 53.2 ml LV SV A2C 53.5 ml LV SV BP 53.1 ml LV CO A4C 3.3 L/min LV CO A2C 3.3 L/min LV CO BP 3.3 L/min HR A4C 62.83 BPM HR A2C 62.50 BPM LV EDV Index (BP) LA Volume LA Length A4C 6.2 cm LA Length A2C 6.3 cm LA Area A4C s 26.99 cm2 LA Area A2C s 26.31 cm2 LA Vol A4C A-L 99.76 mL LA Vol A2C A-L 93.81 mL LA Vol Biplane A-L 97.3 mL LA Vol/BSA A4C A-L LA Vol/BSA A2C A-L LA Vol/BSA BP A-L 57.6 mL/m2 LA Vol A4C MOD 92.1 mL LA Vol A2C MOD 87.4 mL LA Vol BP MOD 89.8 mL RA Volume RA Area A4C 26.2 cm2 RA ESV A4C (A-L) 92.3mL RA Vol/BSA A4C A-L RA Length A4C 6.3 cm RA ESV A4C (MOD) 88.5mL LV Diastology MV E' lateral 0.090 (>0.1 m/s) MV E Vmax 1.25 (0.4-1.3 m/s) MV E/E' LAT 13.78 (<14) MV A Vmax 0.50 (0.4-1.3 m/s) E/A Ratio 2.5 Aortic Valve AoV Vmax 1.31 m/s LVOT Vmax 1.15 m/s AoV Peak Grad 42.5 mmHg LVOT Peak Grad 5.3 mmHg AoV Area (Vmax) 2.52 cm2 LVOT VTI 0.278 m AoV VTI 0.347 m LVOT Mean Grad 2.8 mmHg AoV Mean David. 0.88 m/s LVOT SV 79.55 mL AoV Mean Grad 3.6 mmHg LVOT Diam s 1.90 cm AoV Area (VTI) 2.29 cm2 AV Regurg Peak Gr. 6.88 mmHg Velocity Ratio 0.88 AR Decel Mclean 2.2m/sec2 AR DT 1983 msec AR PHT 575 msec AR Vmax 4.42 m/s Mitral Valve MV DT 164 (160-240 msec) MV Vmax TIPS 1.22 m/s MV Mean Grad 2.1 (<2mmHg) MV VTI 0.336 m Pulmonary Valve PV Vmax 0.83 (0.5-1.5 m/s) RVOT Vmax 0.65 m/s PV Peak Grad 2.8 mmHg RVOT Peak Gr. 1.7 mmHg PV Mean David 0.70 m/s RVOT VTI 0.177 m PV Mean Grad 2.1 mmHg RVOT Mean Gr. 1.0 mmHg Tricuspid Valve RA Pressure 3.00 mmHg TR Vmax 3.77 m/s TV S' 0.08 m/s TR Peak Grad 56.9 mmHg RVSP (TR) 60.0 mmHg
--- NOTE | 2025-03-27 10:46 | W.PM.DS.N ---
Date of service: 03/27/25 Time of Service: 10:49 DS: Diagnosis Discharge Diagnosis (1) Acute exacerbation of CHF (congestive heart failure): Status: Acute (2) Atrial fibrillation: (3) Right rib fracture: Status: Acute (4) Anemia: Status: Chronic (5) Falls frequently: Status: Acute (6) Elevated troponin: Status: Acute (7) Vtjbt-ql-aotgybz kidney injury: Status: Acute Discharge Plan Disposition Patient Disposition: Home Condition: Stable Discharge Details Reason For Visit: CHF Admit Date/Time: 03/26/25 08:22 Admit Provider: Oumar Kaur Attending Provider: Oumar Kaur Primary Care Provider: Oumar Valentine Hospital Course Hospital Course: This is an 84-year-old female patient past medical history significant for diastolic heart failure preserved ejection fraction recently admitted for decompensated heart failure discharged to home with plan for outpatient echocardiogram. She reports that since being home she is having ongoing symptoms of increased dyspnea especially when laying flat. She continues to have peripheral edema which she states is not worsened. She has had no fever no chills no chest pain. Her workup in the emergency department was concerning for decompensated heart failure. She did have no oxygen requirements. She received 40 mg of IV Lasix and began diuresing well. She was admitted to med/surg overnight, hemodynamically remained stable with no oxygen requirements and no shortness of breath. She completed her echocardiogram in the am with results still pending at time of discharge. she is stable and ready to go home. discharge discussed with Dr Vincent Yoder Meds and New Rx's Prescriptions: Continued polyethylene glycol 3350 [Miralax] 17 gram/dose powder 17 g PO DAILY allopurinol 100 mg tablet 100 mg PO DAILY biotin 1 mg capsule 1 mg PO DAILY loratadine 10 mg tablet See Rx Instructions PO DAILY PRN Rx Instructions: 1/2 - 1 tab PO daily PRN; As needed acetaminophen [Tylenol] 325 mg capsule 650 mg PO .q8 PRN fluticasone propionate 50 mcg/actuation [place],Suspension 1 spray INTRANASAL BID latanoprost 0.005 % Drops 1 drp ophthalmic (eye) HS Acidophilus Capsule 1 cap PO DAILY multivitamin Tablet 1 tab PO DAILY docusate sodium 100 mg Tablet 100 mg PO BID PRN Aspercreme with Aloe 10 % Cream 1 applic TOPICAL PRN PRN metoprolol tartrate 25 mg tablet 50 mg PO BID Patient Comments: 50 mg in am, 75 mg pm timolol maleate 0.5 % drops 1 drp ophthalmic (eye) BID Systane (PF) 0.4-0.3 % dropperette 1 drp ophthalmic (eye) DAILY PRN diclofenac sodium 3 % Gel 100 g topical QID Qty: 100 3RF potassium chloride [Klor-Con M20] 20 mEq tablet,ER particles/crystals 20 meq PO DAILY Qty: 30 0RF magnesium oxide 400 mg magnesium tablet 400 mg PO BID Qty: 60 1RF torsemide 20 mg tablet 60 mg PO DAILY Qty: 0 0RF Patient Comments: 02/03/22 pt takes 20-40 mg daily RH Discharge Instructions Instructions: Heart failure Stand Alone Forms: Nursing Discharge Form Referrals: Elida Wilson MD [ [facility] ST[facility]FF PHYSICIAN, Medicine] Referral Note: Drs office will call you with an appointment Activity:: Activity as Tolerated Equipment/Supplies:: No Equipment Needed Diet:: As Tolerated Discharge Orders Discharge Orders: Discharge Order (Routine); Ordered 03/27/25 Ordered By: Marialuisa Sands Discharge Data Discharge Date/Time-TO BE ENTERED AT DEPARTURE: 03/27/25 12:09 DS: Summary Time Spent with Patient providing and/or coordinating discharge services: Less than 30 minutes Status at Discharge Functional status at discharge: independent ambulation Overall status at discharge: patient is progressing back to baseline Mental Status: mental status grossly normal Speech and Movement: speech and movement normal Mood: congruent mood Affect: normal affect Exam Const General: cooperative and no acute distress HENMT Head: normocephalic and atraumatic Mouth: mucous membranes dry Eyes Conjunctivae: normal conjunctivae Sclera: normal sclerae Neck Neck: supple Resp Auscultation: clear to auscultation bilaterally Cardio Rate: regular rate and not tachycardic Rhythm: regular rhythm GI Palpation: soft and no guarding Auscultation: normal bowel sounds Skin General skin exam: no rashes or lesions noted Neuro General: patient alert, patient awake, patient oriented x3 and tone normal Extrem General: no calf tenderness and no edema Psych Appearance: grossly normal Mental Status: mental status grossly normal Speech and Movement: speech and movement normal Mood: congruent mood Affect: normal affect DS: Data Vitals/I&O Vitals and I&O: Vital Signs Temperature 36.4 C L 03/27/25 07:08 Temperature Source Temporal Artery Scan 03/27/25 07:08 Pulse 62 03/27/25 07:08 Pulse Rhythm Regular 03/26/25 09:07 Pulse 60 03/26/25 08:40 Respiratory Rate 17 03/27/25 07:08 Respiratory Effort Normal 03/26/25 09:07 Respiratory Depth Normal 03/26/25 09:07 Respiratory Pattern Normal 03/26/25 09:07 Blood Pressure 162/58 H 03/27/25 07:08 Blood Pressure Mean 92 03/27/25 07:08 Blood Pressure Position Sitting 03/26/25 05:30 Pulse Oximetry 95 03/27/25 07:08 Oxygen Delivery Method Room Air 03/27/25 07:08 Oxygen Flow Rate 0 03/27/25 07:08 Pain Level 0 03/27/25 07:08 Intake & Output 03/26/25 03/26/25 03/27/25 11:59 23:59 11:59 Intake Total 370 / 370 Output Total 2075 / 2375 300 / 2375 650 / 650 Balance -2074 70 / -2004 -650 / -650 Weight 72.3 kg 69.5 kg 69.3 kg Intake: Oral 370 / 370 Output: Urine 2075 / 2375 300 / 2375 650 / 650 Other: Urine Color Yellow Pale Yellow Yellow Urine Appearance Clear Clear Clear Urine Odor Normal Normal Normal Stool Size Moderate Moderate Large Stool Characteristics Liquid Liquid Soft Brown Black Black # Voids 1 Data Completed and Pending Labs on day of discharge: Labs from last 24 hours 03/26/25 03/26/25 Unknown 05:45 Reticulocyte % (Auto) 3.3 H Iron 62 TIBC 298 Transferrin % Sat 21 Ferritin 321 H Vitamin B12 1008 H Folate > 20.0 H Add-On Test Request DONE PFS All Active Problems (Updated 03/26/25 @ 12:09 by Marialuisa Sands NP) Eatav-wx-aymifck kidney injury (Acute) CHF (congestive heart failure) (Chronic) Acute exacerbation of CHF (congestive heart failure) (Acute) Lower extremity edema (Acute) Falls frequently (Acute) Hypomagnesemia (Acute) Increased endometrial stripe thickness (Acute) Right rib fracture (Acute) Hypokalemia (Acute) Elevated troponin (Acute) Edema of both feet (Acute) HTN (hypertension) (Chronic) Diastolic heart failure (Acute) Abdominal pain (Acute) Anemia (Chronic) Epigastric abdominal pain (Acute) Pneumonia of both lower lobes (Acute) Medical History (Updated 03/26/25 @ 12:09 by Marialuisa Sands NP) Atrial fibrillation Atrial flutter Anal warts Inguinal hernia Low back pain Glaucoma Gout Osteoarthritis Osteoporosis Allergic rhinitis Seborrheic keratosis Rosacea Falls Dizziness Alcohol abuse Sleep disturbance Thyroid mass Hyponatremia Surgical History History of colon surgery Hx of cholecystectomy History of appendectomy Social History Smoking/Tobacco Use Status: Former Tobacco Use Smoking risk assessment performed?: Yes Alcohol Intake: current Alcohol Intake frequency: 0-2 drinks per day Alcohol type: wine Drug use: Never Substance use type: does not use Housing: apartment Do you feel safe at home: Yes Do you feel safe in your relationship?: Yes Time Spent with Patient Time Spent with Patient: <45 minutes Time was spent: preparing to see the patient(eg.review tests), obtaining and/or reviewing separately otained hiistory, ordering medications,tests, procedures, referring, communicating with other health manager home healthcare, indepentently interpreting results and counseling the patient
--- NOTE | 2025-03-27 12:21 | PDOC.CMDIS ---
Date of service: 03/27/25 Time of Service: 12:21 LACE Index Scoring Tool Questions: Length of Stay (in days): 1 Was the patient admitted via the E.D.?: Yes Comorbidities: Congestive Heart Failure and Liver or Renal Disease E.D. Visits: 3 Answers: Total Score: 12 Risk of Readmission: High Risk Care Management Discharge Plan Reason for Hospitalization: CHF Discharge Plan: Bertha will be discharged home with no new services. She will follow up with her community providers and plan of care and transport via private vehicle with her son. Patient/Family Education Needs: Review discharge instructions, discuss Ask Me Three
== END 2025-03-27 12:09 | disposition home or self-care (01) ==
LOC: ER 08:27 → MS 08:50
PROVIDERS: Admitting Provider Hospitalist; Emergency Provider Student in an Organized Health Care Education/Training Program; PCP Neuromusculoskeletal Medicine & OMM; Responsible Provider Nurse Practitioner Acute Care; Visit Provider Hospitalist
DX: I13.0 Hypertensive heart and chronic kidney disease with heart failure and stage 1 through stage 4 chronic kidney disease, or unspecified chronic kidney disease (principal); I50.33 Acute on chronic diastolic (congestive) heart failure; I48.0 Paroxysmal atrial fibrillation; D64.9 Anemia, unspecified; R29.6 Repeated falls; R74.8 Abnormal levels of other serum enzymes; N17.9 Acute kidney failure, unspecified; N18.9 Chronic kidney disease, unspecified; I48.92 Unspecified atrial flutter; M54.50 Low back pain, unspecified; M81.0 Age-related osteoporosis without current pathological fracture; L71.9 Rosacea, unspecified; F10.10 Alcohol abuse, uncomplicated; E83.42 Hypomagnesemia; E87.6 Hypokalemia; R10.13 Epigastric pain; Z87.891 Personal history of nicotine dependence; W19.XXXA Unspecified fall, initial encounter; S22.41XA Multiple fractures of ribs, right side, initial encounter for closed fracture
CPT/HCPCS: 00123; 36415; 80053; 93005; 93306; 93308; 96372; 96374; 99285; 71045; 82607; 82728; 82746; 83540; 83550; 83880; 84484; 85025; 85045; 85610; 85730; 93010; 99223; 99238; G0378; J1650; J1938

== ENCOUNTER → 2025-04-19 10:35 | Outpatient (BNVA) | payer MEDICARE, SELFPAY | PROVIDERS: PCP Nurse Practitioner Family; Referring Provider Neuromusculoskeletal Medicine & OMM; Visit Provider Registered Nurse | DX: I50.9 Heart failure, unspecified (principal); I48.11 Longstanding persistent atrial fibrillation; I34.0 Nonrheumatic mitral (valve) insufficiency; I10 Essential (primary) hypertension | CPT/HCPCS: 99215 ==

== ENCOUNTER 2025-05-22 04:14 | Outpatient (CLI) | payer MEDICARE, SELFPAY ==
[2025-05-22 16:25] LABS: HCT 35.1 % (36.0-46.0); HGB 12.1 g/dL (11.2-15.7); MCH 35.1 pg (27.0-33.0); MCHC 34.5 % (32.0-36.0); MCV 102 fL (80-95); MPV 9.6 fL (8.0-11.0); Platelet Count 182 10^3/uL (130-400); RBC 3.45 10^6/uL (3.93-5.22); RDW 11.7 % (11.7-14.6); RDW-SD 43.4 fL; WBC 4.66 10^3/uL (4.4-10.8)
[2025-05-22 17:12] LABS: Albumin 3.7 g/dL (3.4-5.0); Alkaline Phosphatase 150 U/L (46-116); BUN 54 mg/dL (7-18); Calcium 9.6 mg/dL (8.5-10.1); Chloride 94 mmol/L (98-107); Sodium 130 mmol/L (136-145); Total Protein 7.0 g/dL (6.4-8.2)
[2025-05-22 17:35] LABS: ALT 28 U/L (14-59); AST 30 U/L (15-37); Anion Gap 9.7 mmol/L (3-11); Bilirubin, Total 0.4 mg/dL (0.2-1.0); CO2 26.3 mmol/L (21.0-32.0); Estimated GFR 31.61 (mL/min/1.73m2); Glucose 93 mg/dL (74-106); Potassium 4.7 mmol/L (3.5-5.1); TSH (W/Ref FT4) 3.39 uIU/mL (0.36-3.74)
== END 2025-05-22 04:15 | disposition home or self-care (01) ==
LOC: LOS 04:14
PROVIDERS: PCP Nurse Practitioner Family; Visit Provider Nurse Practitioner Family
DX: I50.9 Heart failure, unspecified (principal); R60.0 Localized edema; I10 Essential (primary) hypertension; D64.9 Anemia, unspecified
CPT/HCPCS: 36415; 80053; 85027; 84443